=== PATIENT | male | born 1945 | race Caucasian/White ===

== ENCOUNTER 2018-06-22 10:51 | Observation (INO) | payer OTHER, MEDICARE ==
[2018-06-22] MEDS ORDERED: IPRATROPIUM-ALBUTEROL 3 ML NEB INHALATION STA (11:32)
--- NOTE | 2018-06-22 12:02 | XR ---
EXAMINATION TYPE: XR chest 2V DATE OF EXAM: 06/22/2018 COMPARISON: CXR October 19, 2014 HISTORY: Difficulty in breathing. TECHNIQUE: Frontal and lateral views of the chest are obtained. FINDINGS: There is some chronic parenchymal change without suspicious focal air space opacity, pleur al effusion, or pneumothorax seen. The cardiac silhouette size is within normal limits. The osseou s structures are intact. Cholecystectomy clips are now present. IMPRESSION: Chronic changes without acute pulmonary process.
--- NOTE | 2018-06-22 12:10 | ED ---
URI HPI - General Chief Complaint: Upper Respiratory Infection Stated Complaint: cough, congestion, SOB Time Seen by Provider: 06/22/18 11:19 Source: patient, RN notes reviewed Mode of arrival: ambulatory Limitations: no limitations - History of Present Illness Initial Comments: 73-year-old male presents emergency Department chief complaint cough congestion for 10 days. Patient states that he would see his PCP today and sent him here for further evaluation. Patient states he is a nonsmoker no prior lung disease. Patient states she has no current chest pain but did have some chest pain during any symptoms. Patient does state they feel short of breath and is productive cough this a large amount of phlegm. Patient reports no fever or chills. Patient states he has sinus congestion. Patient states the diarrhea just a cold and he is waiting for her to clear but has not at this time. - Related Data Home Medications Medication Instructions Recorded Confirmed Ranitidine HCl [Zantac] 150 mg PO PC-LUNCH 10/20/14 06/22/18 metFORMIN HCL 1,000 mg PO BID@1300,2100 10/20/14 06/22/18 Aspirin EC [Ecotrin Low Dose] 81 mg PO PC-LUNCH 06/22/18 06/22/18 Naproxen Sodium [Aleve] 220 mg PO BID PRN 06/22/18 06/22/18 Rosuvastatin Calcium [Crestor] 5 mg PO PC-LUNCH 06/22/18 06/22/18 Allergies Allergy/AdvReac Type Severity Reaction Status Date / Time No Known Allergies Allergy Verified 06/22/18 11:47 Review of Systems ROS Statement: Those systems with pertinent positive or pertinent negative responses have been documented in the HPI. ROS Other: All systems not noted in ROS Statement are negative. Past Medical History Past Medical History: Diabetes Mellitus, GERD/Reflux History of Any Multi-Drug Resistant Organisms: None Reported Past Surgical History: Cholecystectomy, Heart Catheterization With Stent, Hernia Repair Past Anesthesia/Blood Transfusion Reactions: No Reported Reaction Date of Last Stent Placement:: 2007 Past Psychological History: No Psychological Hx Reported Smoking Status: Former smoker Past Alcohol Use History: Occasional Past Drug Use History: None Reported General Exam General appearance: alert, in no apparent distress Head exam: Present: atraumatic, normocephalic, normal inspection Eye exam: Present: normal appearance, PERRL, EOMI. Absent: scleral icterus, conjunctival injection, periorbital swelling ENT exam: Present: mucous membranes moist, TM's normal bilaterally, normal external ear exam. Absent: normal oropharynx (Postnasal drainage) Neck exam: Present: normal inspection, full ROM. Absent: tenderness, meningismus, lymphadenopathy Respiratory exam: Present: wheezes. Absent: normal lung sounds bilaterally, respiratory distress, rales, rhonchi, stridor Cardiovascular Exam: Present: regular rate, normal rhythm, normal heart sounds. Absent: systolic murmur, diastolic murmur, rubs, gallop, clicks Neurological exam: Present: alert, oriented X3, CN II-XII intact Skin exam: Present: warm, dry, intact, normal color. Absent: rash Course Vital Signs 06/22/18 06/22/18 06/22/18 11:08 12:00 12:05 Temperature 98.6 F Pulse Rate 99 80 83 Respiratory 22 17 Rate Blood Pressure 167/93 127/79 O2 Sat by Pulse 96 98 Oximetry 06/22/18 06/22/18 12:30 13:00 Temperature Pulse Rate 87 84 Respiratory 15 20 Rate Blood Pressure 129/83 131/83 O2 Sat by Pulse 98 97 Oximetry Medical Decision Making - Medical Decision Making 73-year-old male presents emergency department for URI symptoms 1010 today, rib pain. Patient has noted to have elevated troponin may be related to renal function though he does complain of chest wall pain. Patient will be admitted for repeat troponin, heparin, antibiotics. - Lab Data Result diagrams: 06/22/18 11:35 06/22/18 11:35 Lab Results 06/22/18 06/22/18 06/22/18 Range/Units 11:35 11:35 11:35 WBC 14.1 H (3.8-10.6) k/uL RBC 4.57 (4.30-5.90) m/uL Hgb 13.6 (13.0-17.5) gm/dL Hct 41.0 (39.0-53.0) % MCV 89.7 (80.0-100.0) fL MCH 29.8 (25.0-35.0) pg MCHC 33.2 (31.0-37.0) g/dL RDW 12.6 (11.5-15.5) % Plt Count 232 (150-450) k/uL Neutrophils % 81 % Lymphocytes % 8 % Monocytes % 7 % Eosinophils % 2 % Basophils % 0 % Neutrophils # 11.5 H (1.3-7.7) k/uL Lymphocytes # 1.2 (1.0-4.8) k/uL Monocytes # 0.9 (0-1.0) k/uL Eosinophils # 0.3 (0-0.7) k/uL Basophils # 0.1 (0-0.2) k/uL PT (9.0-12.0) sec INR (<1.2) APTT (22.0-30.0) sec Sodium 140 (137-145) mmol/L Potassium 4.2 (3.5-5.1) mmol/L Chloride 100 (98-107) mmol/L Carbon Dioxide 25 (22-30) mmol/L Anion Gap 15 mmol/L BUN 22 H (9-20) mg/dL Creatinine 1.50 H (0.66-1.25) mg/dL Est GFR (CKD-EPI)AfAm 54 (>60 ml/min/1.73 sqM) Est GFR (CKD-EPI)NonAf 46 (>60 ml/min/1.73 sqM) Glucose 159 H (74-99) mg/dL Plasma Lactic Acid Mason (0.7-2.0) mmol/L Calcium 10.1 (8.4-10.2) mg/dL Magnesium 1.5 L (1.6-2.3) mg/dL Total Bilirubin 1.5 H (0.2-1.3) mg/dL AST 31 (17-59) U/L ALT 31 (21-72) U/L Alkaline Phosphatase 84 (38-126) U/L Troponin I (0.000-0.034) ng/mL NT-Pro-B Natriuret Pep 2100 pg/mL Total Protein 7.3 (6.3-8.2) g/dL Albumin 4.5 (3.5-5.0) g/dL 06/22/18 06/22/18 06/22/18 Range/Units 11:35 11:35 11:35 WBC (3.8-10.6) k/uL RBC (4.30-5.90) m/uL Hgb (13.0-17.5) gm/dL Hct (39.0-53.0) % MCV (80.0-100.0) fL MCH (25.0-35.0) pg MCHC (31.0-37.0) g/dL RDW (11.5-15.5) % Plt Count (150-450) k/uL Neutrophils % % Lymphocytes % % Monocytes % % Eosinophils % % Basophils % % Neutrophils # (1.3-7.7) k/uL Lymphocytes # (1.0-4.8) k/uL Monocytes # (0-1.0) k/uL Eosinophils # (0-0.7) k/uL Basophils # (0-0.2) k/uL PT 9.6 (9.0-12.0) sec INR 1.0 (<1.2) APTT 23.3 (22.0-30.0) sec Sodium (137-145) mmol/L Potassium (3.5-5.1) mmol/L Chloride (98-107) mmol/L Carbon Dioxide (22-30) mmol/L Anion Gap mmol/L BUN (9-20) mg/dL Creatinine (0.66-1.25) mg/dL Est GFR (CKD-EPI)AfAm (>60 ml/min/1.73 sqM) Est GFR (CKD-EPI)NonAf (>60 ml/min/1.73 sqM) Glucose (74-99) mg/dL Plasma Lactic Acid Mason 1.3 (0.7-2.0) mmol/L Calcium (8.4-10.2) mg/dL Magnesium (1.6-2.3) mg/dL Total Bilirubin (0.2-1.3) mg/dL AST (17-59) U/L ALT (21-72) U/L Alkaline Phosphatase (38-126) U/L Troponin I 0.090 H* (0.000-0.034) ng/mL NT-Pro-B Natriuret Pep pg/mL Total Protein (6.3-8.2) g/dL Albumin (3.5-5.0) g/dL Disposition Clinical Impression: Acute bronchitis with bronchospasm, Dyspnea, Elevated troponin, Chest pain Disposition: ADMITTED IP TO THIS HOSP Condition: Fair Referrals: [facility],Clinic [Primary Care Provider] - 1-2 days
[2018-06-22 12:14] LABS: Basophils # (A) 0.1 k/uL (0-0.2); Basophils % (A) 0 %; Eosinophils # (A) 0.3 k/uL (0-0.7); Eosinophils % (A) 2 %; HGB 13.6 gm/dL (13.0-17.5); Lymphocytes # (A) 1.2 k/uL (1.0-4.8); Lymphocytes % (A) 8 %; MCH 29.8 pg (25.0-35.0); MCHC 33.2 g/dL (31.0-37.0); MCV 89.7 fL (80.0-100.0); Monocytes # (A) 0.9 k/uL (0-1.0); Monocytes % (A) 7 %; Neutrophils # (A) 11.5 k/uL (1.3-7.7); Neutrophils % (A) 81 %; Platelet Count 232 k/uL (150-450); RBC 4.57 m/uL (4.30-5.90); RDW 12.6 % (11.5-15.5); WBC 14.1 k/uL (3.8-10.6)
[2018-06-22 12:24] LABS: Partial Thromboplastin Time 23.3 sec (22.0-30.0); Prothrombin Time 9.6 sec (9.0-12.0)
[2018-06-22 12:32] LABS: Albumin 4.5 g/dL (3.5-5.0); Calcium 10.1 mg/dL (8.4-10.2); Magnesium 1.5 mg/dL (1.6-2.3); Potassium 4.2 mmol/L (3.5-5.1); Total Bilirubin 1.5 mg/dL (0.2-1.3); Total Protein 7.3 g/dL (6.3-8.2)
[2018-06-22] MEDS ORDERED: NITROGLYCERIN SL TABS 0.4 MG TAB SUBLINGUAL PRN (13:33)
[2018-06-22] MEDS ORDERED: ASPIRIN 81 MG PO STA (13:33)
[2018-06-22] MEDS ORDERED: HEPARIN SODIUM,PORCINE 5,000 UNIT/ML 1 ML VIAL IV ONE (13:33)
[2018-06-22] MEDS ORDERED: AZITHROMYCIN 500 MG in SODIUM CHLORIDE 0.9% 250 ML IVPB STA (13:35)
[2018-06-22] MEDS ORDERED: HEPARIN SOD,PORK IN 0.45% NACL 25,000 UNIT in 0.45% NACL 1 500ML.BAG IV SCH (13:45)
[2018-06-22] MEDS: IPRATROPIUM-ALBUTEROL 3 ML NEB INHALATION SCH ×2 (15:32→20:00)
--- NOTE | 2018-06-22 17:29 | P.HPIM ---
History of Present Illness 73-year-old pleasant gentleman sent in from PCPs office with concerns of pneumonia. Patient was having URI-like symptoms with pharyngitis started about 14 days ago and now coughing greenish phlegm is complaining of chest pain while coughing. Patient creatinine is around 0.8 his creatinine here is 1.5 patient' s chest x-ray did not show any pneumonic process EKG did not show any acute ST- T wave changes although patient is found to have mildly elevated troponin of 0.09 because of which ER physician requested straight for monitoring hospitalization. Patient is also hypomagnesemic magnesium will be supplemented patient doesn't have any history of COPD used to smoke about 40 years ago. Patient denied any fever chills. Review of Systems REVIEW OF SYSTEMS: CONSTITUTIONAL: No fever, no malaise, no fatigue. HEENT: No recent visual problems or hearing problems. Denied any sore throat. CARDIOVASCULAR: No orthopnea, PND, no palpitations, no syncope. PULMONARY: No shortness of breath, no hemoptysis. GASTROINTESTINAL: No diarrhea, no nausea, no vomiting, no abdominal pain. Normoactive bowel sounds. NEUROLOGICAL: No headaches, no weakness, no numbness. HEMATOLOGICAL: Denies any bleeding or petechiae. GENITOURINARY: Denies any burning micturition, frequency, or urgency. MUSCULOSKELETAL/RHEUMATOLOGICAL: Denies any joint pain, swelling, or any muscle pain. ENDOCRINE: Denies any polyuria or polydipsia. The rest of the 14-point review of systems is negative. Past Medical History Past Medical History: Diabetes Mellitus, GERD/Reflux History of Any Multi-Drug Resistant Organisms: None Reported Past Surgical History: Cholecystectomy, Heart Catheterization With Stent, Hernia Repair Past Anesthesia/Blood Transfusion Reactions: No Reported Reaction Date of Last Stent Placement:: 2007 Past Psychological History: No Psychological Hx Reported Smoking Status: Former smoker Past Alcohol Use History: Occasional Past Drug Use History: None Reported Medications and Allergies Home Medications Medication Instructions Recorded Confirmed Type Ranitidine HCl [Zantac] 150 mg PO PC-LUNCH 10/20/14 06/22/18 History metFORMIN HCL 1,000 mg PO BID@1300,2100 10/20/14 06/22/18 History Aspirin EC [Ecotrin Low Dose] 81 mg PO PC-LUNCH 06/22/18 06/22/18 History Naproxen Sodium [Aleve] 220 mg PO BID PRN 06/22/18 06/22/18 History Rosuvastatin Calcium [Crestor] 5 mg PO PC-LUNCH 06/22/18 06/22/18 History Allergies Allergy/AdvReac Type Severity Reaction Status Date / Time No Known Allergies Allergy Verified 06/22/18 11:47 Physical Exam Vitals: Vital Signs Temp Pulse Resp BP Pulse Ox 06/22/18 15:40 68 06/22/18 15:33 67 06/22/18 14:30 78 20 125/78 98 06/22/18 13:00 84 20 131/83 97 06/22/18 12:30 87 15 129/83 98 06/22/18 12:05 83 06/22/18 12:00 80 17 127/79 98 06/22/18 11:08 98.6 F 99 22 167/93 96 Intake and Output 06/22/18 06/22/18 06/22/18 06:59 14:59 22:59 Other: Weight 68.039 kg PHYSICAL EXAMINATION: GENERAL: The patient is alert and oriented x3, not in any acute distress. Well developed, well nourished. HEENT: Pupils are round and equally reacting to light. EOMI. No scleral icterus. No conjunctival pallor. Normocephalic, atraumatic. No pharyngeal erythema. No thyromegaly. CARDIOVASCULAR: S1 and S2 present. No murmurs, rubs, or gallops. PULMONARY: Chest is clear to auscultation, no wheezing or crackles. ABDOMEN: Soft, nontender, nondistended, normoactive bowel sounds. No palpable organomegaly. MUSCULOSKELETAL: No joint swelling or deformity. EXTREMITIES: No cyanosis, clubbing, or pedal edema. NEUROLOGICAL: Gross neurological examination did not reveal any focal deficits. SKIN: No rashes. Results CBC & Chem 7: 06/22/18 11:35 06/22/18 11:35 Labs: Abnormal Lab Results - Last 24 Hours (Table) 06/22/18 06/22/18 06/22/18 Range/Units 11:35 11:35 11:35 WBC 14.1 H (3.8-10.6) k/uL Neutrophils # 11.5 H (1.3-7.7) k/uL BUN 22 H (9-20) mg/dL Creatinine 1.50 H (0.66-1.25) mg/dL Glucose 159 H (74-99) mg/dL Magnesium 1.5 L (1.6-2.3) mg/dL Total Bilirubin 1.5 H (0.2-1.3) mg/dL Troponin I 0.090 H* (0.000-0.034) ng/mL Assessment and Plan Plan: -Mild elevation of troponin: Will repeat 2 more sets of troponins and EKGs mild elevation of troponin is secondary to his acute renal failure patient was started on IV fluids and repeat basic metabolic profile again. Cardiology was consulted. -Chest pain musculoskeletal from coughing my suspicion is low that patient has cardiac chest pain -Acute renal failure prerenal azotemia patient will be started on IV fluids and recheck basic metabolic profile tomorrow -Acute bronchitis we'll obtain sputum cultures and patient will be started on doxycycline patient doesn't have any pneumonia at this time -Gastroesophageal reflux disease -Type 2 diabetes mellitus patient will be started on sliding scale insulin hold off oral hypoglycemic agents
[2018-06-22] MEDS: MAGNESIUM SULFATE-D5W PMX 1 GM in DEXTROSE/WATER 1 100ML.BAG IVPB SCH ×2 (18:37→19:45)
[2018-06-22 18:46] LABS: Creatine Kinase MB 2.2 ng/mL (0.0-2.4); Troponin I 0.106 ng/mL (0.000-0.034)
[2018-06-22] MEDS: SODIUM CHLORIDE 0.9% 1,000 ML IV SCH ×2 (20:42→22:30)
[2018-06-22] MEDS: DOXYCYCLINE 100 MG CAP PO SCH (21:58)
[2018-06-23] MEDS: IPRATROPIUM-ALBUTEROL 3 ML NEB INHALATION SCH ×4 (00:14→11:45)
[2018-06-23 00:58] LABS: Troponin I 0.096 ng/mL (0.000-0.034)
[2018-06-23 05:09] LABS: Calcium 8.5 mg/dL (8.4-10.2); Potassium 3.7 mmol/L (3.5-5.1)
[2018-06-23 05:36] LABS: HCT 30.7 % (39.0-53.0); MCH 30.8 pg (25.0-35.0); MCHC 34.7 g/dL (31.0-37.0); MCV 88.9 fL (80.0-100.0); Mean Platelet Volume 7.2; Platelet Count 167 k/uL (150-450); RBC 3.45 m/uL (4.30-5.90); RDW 12.7 % (11.5-15.5); WBC 7.5 k/uL (3.8-10.6)
[2018-06-23 05:40] LABS: HGB 10.6 gm/dL (13.0-17.5)
[2018-06-23 06:04] LABS: Glucose,Whole Blood 191 mg/dL (75-99)
[2018-06-23 07:59] VITALS: RESP 16
[2018-06-23] MEDS: DOXYCYCLINE 100 MG CAP PO SCH (08:02)
--- NOTE | 2018-06-23 08:53 | P.CRDCN ---
History of Present Illness Consult date: 06/23/18 History of present illness: This is a 73-year-old gentleman with history of the ischemic heart disease and stent placement done about 20 years ago and being followed in the [facility]. Apparently for the last few days patient has been having cough and shortness of breath. He was referred to the emergency room by [facility] for further evaluation. He was also complaining of chest pain which radiated related to his coughing and appears to be muscular skeletal. In the emergency room blood test showed elevation of the troponins. Patient is admitted to rule out any acute coronary syndrome. Subsequent to troponin values were also elevated but appeared to be not consistent with acute coronary syndrome. Patient is still coughing. He clearly claims that chest pain is different than the discomfort he had with his heart attacks. EKGs did not reveal any acute changes of ischemia. I'm going to get an echocardiogram done. If echo doesn't show any significant wall motion abnormalities, no further cardiac evaluation at this time. However, patient may be constricted for a stress test as an outpatient once his pulmonary status improves. Review of Systems As per the chart Past Medical History Past Medical History: Coronary Artery Disease (CAD), Diabetes Mellitus, GERD/ Reflux, Hyperlipidemia, Myocardial Infarction (MD) Last Myocardial Infarction Date:: 2007 History of Any Multi-Drug Resistant Organisms: None Reported Past Surgical History: Cholecystectomy, Heart Catheterization With Stent, Hernia Repair Past Anesthesia/Blood Transfusion Reactions: No Reported Reaction Date of Last Stent Placement:: 2007 Smoking Status: Former smoker - Past Family History Mother Family Medical History: No Reported History Additional Family Medical History / Comment(s): " from old age" Father Family Medical History: CVA/TIA Additional Family Medical History / Comment(s): father from stroke when pt was 7 years old Medications and Allergies Home Medications Medication Instructions Recorded Confirmed Type Ranitidine HCl [Zantac] 150 mg PO PC-LUNCH 10/20/14 06/22/18 History metFORMIN HCL 1,000 mg PO BID@1300,2100 10/20/14 06/22/18 History Aspirin EC [Ecotrin Low Dose] 81 mg PO PC-LUNCH 06/22/18 06/22/18 History Naproxen Sodium [Aleve] 220 mg PO BID PRN 06/22/18 06/22/18 History Rosuvastatin Calcium [Crestor] 5 mg PO PC-LUNCH 06/22/18 06/22/18 History Allergies Allergy/AdvReac Type Severity Reaction Status Date / Time No Known Allergies Allergy Verified 06/22/18 11:47 Physical Exam Vitals: Vital Signs Temp Pulse Pulse Resp BP BP Pulse Ox 06/23/18 07:58 98.4 F 69 16 121/62 98 06/23/18 04:00 97.5 F L 75 18 121/68 97 06/23/18 00:25 72 06/23/18 00:14 68 06/22/18 23:45 83 18 06/22/18 23:43 97.6 F 83 18 127/72 97 06/22/18 20:25 98.9 F 72 18 130/71 97 06/22/18 20:15 72 06/22/18 20:00 98.0 F 72 93 18 120/71 98 06/22/18 18:41 98.8 F 79 20 129/72 99 06/22/18 15:40 68 06/22/18 15:33 67 06/22/18 14:30 78 20 125/78 98 06/22/18 13:00 84 20 131/83 97 06/22/18 12:30 87 15 129/83 98 06/22/18 12:05 83 06/22/18 12:00 80 17 127/79 98 06/22/18 11:08 98.6 F 99 22 167/93 96 Intake and Output 06/22/18 06/23/18 06/23/18 22:59 06:59 14:59 Intake Total 115.056 960.899 Output Total 700 Balance 115.056 260.899 Intake: IV 800 0.9 800 Intake, IV Titration 115.056 160.899 Amount Heparin Sod,Pork in 0.45% 115.056 160.899 NaCl 25,000 unit In 0.45 % NaCl 1 500ml.bag @ 12 UNITS/KG/HR 16.32 mls/hr IV .Q24H [facility] Rx#: [id number] Output: Urine 700 Other: Voiding Method Toilet Toilet # Voids 1 Weight 68 kg GENERAL EXAM: Patient is alert and oriented and doesn't appear to be in any acute distress HEENT: Normocephalic. Normal reaction of pupils, equal size, normal range of extraocular motion. No erythema or exudates in the throat. NECK: No masses, no nuchal rigidity. CHEST: No chest wall deformity. LUNGS: Equal air entry with no crackles or wheeze. HEART: S1 and S2 normal with no audible mumurs or gallops. Regular rhythm, ABDOMEN: No hepatosplenomegaly, normal bowel sounds, no guarding or rigidity. SKIN: No rashes CENTRAL NERVOUS SYSTEM: No focal deficits. EXTREMITIES: No cyanosis, clubbing or edema. Results 06/23/18 04:10 06/23/18 04:10 Cardiac Enzymes 06/22/18 06/22/18 06/22/18 Range/Units 11:35 11:35 17:44 AST 31 (17-59) U/L CK-MB (CK-2) 2.2 (0.0-2.4) ng/mL Troponin I 0.090 H* 0.106 H* (0.000-0.034) ng/mL 06/22/18 Range/Units 23:25 AST (17-59) U/L CK-MB (CK-2) 2.0 (0.0-2.4) ng/mL Troponin I 0.096 H* (0.000-0.034) ng/mL Coagulation 06/22/18 06/22/18 06/23/18 Range/Units 11:35 20:45 04:10 PT 9.6 (9.0-12.0) sec APTT 23.3 35.3 H 44.4 H (22.0-30.0) sec Lipids 06/23/18 Range/Units 04:10 Triglycerides 102 (<150) mg/dL Cholesterol 114 (<200) mg/dL HDL Cholesterol 35 L (40-60) mg/dL CBC 06/22/18 06/23/18 Range/Units 11:35 04:10 WBC 14.1 H 7.5 (3.8-10.6) k/uL RBC 4.57 3.45 L (4.30-5.90) m/uL Hgb 13.6 10.6 L D (13.0-17.5) gm/dL Hct 41.0 30.7 L (39.0-53.0) % Plt Count 232 167 (150-450) k/uL Comprehensive Metabolic Panel 06/22/18 06/23/18 Range/Units 11:35 04:10 Sodium 140 137 (137-145) mmol/L Potassium 4.2 3.7 (3.5-5.1) mmol/L Chloride 100 104 (98-107) mmol/L Carbon Dioxide 25 26 (22-30) mmol/L BUN 22 H 22 H (9-20) mg/dL Creatinine 1.50 H 1.42 H (0.66-1.25) mg/dL Glucose 159 H 189 H (74-99) mg/dL Calcium 10.1 8.5 (8.4-10.2) mg/dL AST 31 (17-59) U/L ALT 31 (21-72) U/L Alkaline Phosphatase 84 (38-126) U/L Total Protein 7.3 (6.3-8.2) g/dL Albumin 4.5 (3.5-5.0) g/dL Current Medications Generic Name Dose Route Start Last Admin Trade Name Freq PRN Reason Stop Dose Admin Albuterol/Ipratropium 3 ml 06/22/18 16:00 06/23/18 08:04 Duoneb 0.5 Mg-3 Mg/3 Ml Soln INHALATION Not Given Q4HR [facility] Aspirin 81 mg 06/23/18 13:30 Aspirin PO PC-LUNCH [facility] Atorvastatin Calcium 10 mg 06/23/18 13:30 Lipitor PO PC-LUNCH [facility] Doxycycline Monohydrate 100 mg 06/22/18 21:00 06/23/18 08:02 Vibramycin PO 100 mg BID [facility] Administration Famotidine 20 mg 06/23/18 13:30 Pepcid PO PC-LUNCH [facility] Heparin Sodium/Sodium Chloride 500 mls @ 16.32 mls/hr 06/22/18 13:45 05:49 25,000 unit/ Sodium Chloride IV 17 units/kg/hr .Q24H [facility] 23.13 mls/hr Titration Protocol 12 UNITS/KG/HR Sodium Chloride 1,000 mls @ 100 mls/hr 06/22/18 17:30 06/22/18 22:30 Saline 0.9% IV 100 mls/hr .Q10H [facility] Administration Nitroglycerin 0.4 mg 06/22/18 13:33 Nitrostat SUBLINGUAL Q5M PRN Chest Pain Intake and Output 06/22/18 06/23/18 06/23/18 22:59 06:59 14:59 Intake Total 115.056 960.899 Output Total 700 Balance 115.056 260.899 Intake: IV 800 0.9 800 Intake, IV Titration 115.056 160.899 Amount Heparin Sod,Pork in 0.45% 115.056 160.899 NaCl 25,000 unit In 0.45 % NaCl 1 500ml.bag @ 12 UNITS/KG/HR 16.32 mls/hr IV .Q24H [facility] Rx#: [id number] Output: Urine 700 Other: Voiding Method Toilet Toilet # Voids 1 Weight 68 kg 06/23/18 04:10 06/23/18 04:10 EKG Interpretations (text) Sinus rhythm, long QT interval without any acute ST-T abnormalities Assessment and Plan (1) Acute bronchitis with bronchospasm Current Visit: Yes Status: Acute Code(s): J20.9 - ACUTE BRONCHITIS, UNSPECIFIED SNOMED Code(s): 22563739 (2) Chest pain Current Visit: Yes Status: Acute Code(s): R07.9 - CHEST PAIN, UNSPECIFIED SNOMED Code(s): 33384637 (3) Dyspnea Current Visit: Yes Status: Acute Code(s): R06.00 - DYSPNEA, UNSPECIFIED SNOMED Code(s): 927823283 (4) Elevated troponin Current Visit: Yes Status: Acute Code(s): R74.8 - ABNORMAL LEVELS OF OTHER SERUM ENZYMES SNOMED Code(s): 671054395 (5) Coronary artery disease Current Visit: No Status: Acute Code(s): I25.10 - ATHSCL HEART DISEASE OF [place] CORONARY ARTERY W/O ANG PCTRS SNOMED Code(s): 57184296 Plan: We'll get an echocardiogram. If there are no segmental wall motion defects, no further cardiac evaluation at this time. However, recommend that patient have outpatient stress test once his pulmonary status is improved
[2018-06-23] MEDS ORDERED: ASPIRIN 325 MG TAB PO SCH (09:00)
--- NOTE | 2018-06-23 10:21 | P.DS ---
Providers Date of admission: 06/22/18 14:57 Attending physician: Janina Marshall Consults: 06/22/18 13:33 Consult Physician Urgent Consulting Provider: Robin Weiner Consult Reason/Comments: chest pain Do you want consulting provider notified?: Yes Primary care physician: [facility] Course: 89-year-old gentleman was admitted because of elevated troponin which is minimal elevation patient has noncardiac musculoskeletal chest pain from coughing. Patient does have acute bronchitis for which patient will be discharged on doxycycline and patient does have some sinusitis as well if his symptoms doesn't improve with doxycycline, antibiotic and be switched to Augmentin as of now his symptoms are much better today. Patient was evaluated cardiology and his elevated troponin is secondary to kidney failure. 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 As of now his blood pressure is stable. Patient is not a candidate for metformin because the port renal function has diabetic medication will be switched to Januvia, if that is not covered by the insurance probably can use glipizide are newer diabetic medications. Patient is undergoing echocardiogram if it doesn't show any wall motion abnormalities or any other significant abnormalities patient will be discharged today PHYSICAL EXAMINATION: GENERAL: The patient is alert and oriented x3, not in any acute distress. Well developed, well nourished. HEENT: Pupils are round and equally reacting to light. EOMI. No scleral icterus. No conjunctival pallor. Normocephalic, atraumatic. No pharyngeal erythema. No thyromegaly. CARDIOVASCULAR: S1 and S2 present. No murmurs, rubs, or gallops. PULMONARY: Chest is clear to auscultation, no wheezing or crackles. ABDOMEN: Soft, nontender, nondistended, normoactive bowel sounds. No palpable organomegaly. MUSCULOSKELETAL: No joint swelling or deformity. EXTREMITIES: No cyanosis, clubbing, or pedal edema. NEUROLOGICAL: Gross neurological examination did not reveal any focal deficits. SKIN: No rashes. Assessment and Plan Plan: -Mild elevation of troponin: mild elevation of troponin is secondary to his acute renal failure -Chest pain musculoskeletal from coughing my suspicion is low that patient has cardiac chest pain -Acute renal failure prerenal azotemia along with chronic kidney disease as mentioned above -Acute bronchitis -Gastroesophageal reflux disease -Type 2 diabetes mellitus Patient Condition at Discharge: Fair Plan - Discharge Summary Discharge Rx Participant: Yes New Discharge Prescriptions: New Doxycycline Monohydrate [Monodox] 100 mg PO BID 5 Days #10 cap sitaGLIPtin PHOSPHATE [Januvia] 50 mg PO DAILY #30 tab Discontinued metFORMIN HCL 1,000 mg PO BID@1300,2100 Naproxen Sodium [Aleve] 220 mg PO BID PRN PRN Reason: Pain No Action Ranitidine HCl [Zantac] 150 mg PO PC-LUNCH Aspirin EC [Ecotrin Low Dose] 81 mg PO PC-LUNCH Rosuvastatin Calcium [Crestor] 5 mg PO PC-LUNCH Discharge Medication List Ranitidine HCl [Zantac] 150 mg PO PC-LUNCH 10/20/14 [History] Aspirin EC [Ecotrin Low Dose] 81 mg PO PC-LUNCH 06/22/18 [History] Rosuvastatin Calcium [Crestor] 5 mg PO PC-LUNCH 06/22/18 [History] Doxycycline Monohydrate [Monodox] 100 mg PO BID 5 Days #10 cap 06/23/18 [Rx] sitaGLIPtin PHOSPHATE [Januvia] 50 mg PO DAILY #30 tab 06/23/18 [Rx] Follow up Appointment(s)/Referral(s): Jacki Orozco MD [STAFF PHYSICIAN] - 1 Week [facility],Clinic [Primary Care Provider] - 3 Days Patient Instructions/Handouts: Acute Bronchitis (GEN), Bronchospasm (DC) Discharge Disposition: HOME SELF-CARE
[2018-06-23 11:21] VITALS: BP 113/59; PULSE 70; TEMP 98.6
[2018-06-23 11:24] LABS: Glucose,Whole Blood 211 mg/dL (75-99)
[2018-06-23] MEDS ORDERED: INSULIN ASPART 100 UNIT/ML 1 ML 10 ML VIAL SQ SCH (12:30)
--- NOTE | 2018-06-23 12:30 | ECHOF ---
Referral Reason:check heart LV function MEASUREMENTS -------- HEIGHT: 170.2 cm WEIGHT: 67.6 kg BP: RVIDd: 2.4 cm (< 3.3) IVSd: 1.2 cm (0.6 - 1.1) LVIDd: 3.8 cm (3.9 - 5.3) LVPWd: 1.4 cm (0.6 - 1.1) IVSs: 2.0 cm LVIDs: 2.4 cm LVPWs: 2.1 cm LAESV Index (A-L): 27.26 ml/m Ao Diam: 3.5 cm (2.0 - 3.7) AV Cusp: 2.3 cm (1.5 - 2.6) LA Diam: 2.9 cm (2.7 - 3.8) MV EXCURSION: 13.189 mm (> 18.000) MV EF SLOPE: 77 mm/s (70 - 150) EPSS: 0.7 cm MV E Feliz: 0.83 m/s MV DecT: 145 ms MV A Feliz: 0.89 m/s MV E/A Ratio: 0.93 RAP: 5.00 mmHg RVSP: 10.17 mmHg FINDINGS -------- Sinus rhythm. This was a technically good study. The left ventricular size is normal. There is mild concentric left ventricular hypertrophy. Overa ll left ventricular systolic function is mildly impaired with, an EF between 45 - 50 %. Basal poste rior LV wall motion is hypokinetic. Basal inferior LV wall motion is hypokinetic. Mid inferior LV wall motion is hypokinetic. The right ventricle is normal in size and function. The left atrium is normal in size. The right atrium is normal in size. The aortic valve is trileaflet and appears structurally normal. The mitral valve leaflets are mildly thickened. Mild mitral regurgitation is present. Mild tricuspid regurgitation present. There is no evidence of pulmonary hypertension. The right v entricular systolic pressure, as measured by Doppler, is 10.17mmHg. There is no pulmonic regurgitation present. The aortic root size is normal. Normal inferior vena cava with normal inspiratory collapse consistent with estimated right atrial pre ssure of 5 mmHg. There is no pericardial effusion. CONCLUSIONS -------- 1. Sinus rhythm. 2. This was a technically good study. 3. The left ventricular size is normal. 4. There is mild concentric left ventricular hypertrophy. 5. Overall left ventricular systolic function is mildly impaired with, an EF between 45 - 50 %. 6. Basal posterior LV wall motion is hypokinetic. 7. Basal inferior LV wall motion is hypokinetic. 8. Mid inferior LV wall motion is hypokinetic. 9. The left atrium is normal in size. 10. The aortic valve is trileaflet and appears structurally normal. 11. The mitral valve leaflets are mildly thickened. 12. Mild mitral regurgitation is present. 13. Mild tricuspid regurgitation present. 14. There is no evidence of pulmonary hypertension. 15. There is no pulmonic regurgitation present. 16. The aortic root size is normal. 17. Normal inferior vena cava with normal inspiratory collapse consistent with estimated right atrial pressure of 5 mmHg. 18. There is no pericardial effusion. MANAGER TRAFFIC: Marti Marmolejo RDCS
[2018-06-23] MEDS ORDERED: ASPIRIN 81 MG PO SCH (13:30)
[2018-06-23] MEDS ORDERED: ATORVASTATIN 10 MG TAB PO SCH (13:30)
[2018-06-23] MEDS ORDERED: FAMOTIDINE 20 MG TAB PO SCH (13:30)
[2018-06-23 22:30] LABS: Hemoglobin A1C 6.6 % (4.0-6.0)
== END 2018-06-23 14:42 | disposition home or self-care (01) ==
LOC: EC 10:51 → 3SCARD 14:57
PROVIDERS: ADMIT Internal Medicine; ATTEND Internal Medicine
DX: N17.9 Acute kidney failure, unspecified (principal); J20.9 Acute bronchitis, unspecified; R07.9 Chest pain, unspecified; J32.9 Chronic sinusitis, unspecified; E83.42 Hypomagnesemia; R19.7 Diarrhea, unspecified; E11.9 Type 2 diabetes mellitus without complications; Z95.5 Presence of coronary angioplasty implant and graft; Z90.49 Acquired absence of other specified parts of digestive tract; Z87.891 Personal history of nicotine dependence; K21.9 Gastro-esophageal reflux disease without esophagitis; I25.2 Old myocardial infarction; I25.10 Atherosclerotic heart disease of native coronary artery without angina pectoris; E78.5 Hyperlipidemia, unspecified; Z82.3 Family history of stroke; Z79.84 Long term (current) use of oral hypoglycemic drugs; Z79.82 Long term (current) use of aspirin; Z79.899 Other long term (current) drug therapy
CPT/HCPCS: 99285 ×2; 96365 ×2; 96366 ×3; 96367 ×2; 96376; 36415; 94640 ×3; 93005; 93306; 83880; 80061; 80053; 80048; 82550; 82553; 83605; 83735 ×2; 84484; 85025; 85027; 85610; 85730 ×2; 83036; 71046; G0378 ×2; J1644 ×2; J0456; J0696; J3475

== ENCOUNTER 2021-06-27 07:09 | Emergency (ER) | payer OTHER, MEDICARE ==
[2021-06-27 07:19] VITALS: BP 162/85; PULSE 95; RESP 22; TEMP 98.8
[2021-06-27 08:24] LABS: Basophils % (A) 0 %; Eosinophils # (A) 0.2 k/uL (0-0.7); Eosinophils % (A) 3 %; HCT 40.9 % (39.0-53.0); Lymphocytes # (A) 0.7 k/uL (1.0-4.8); Lymphocytes % (A) 9 %; MCH 30.8 pg (25.0-35.0); MCHC 34.3 g/dL (31.0-37.0); MCV 89.6 fL (80.0-100.0); Mean Platelet Volume 7.7; Monocytes # (A) 0.6 k/uL (0-1.0); Monocytes % (A) 7 %; Neutrophils # (A) 5.9 k/uL (1.3-7.7); Neutrophils % (A) 79 %; Platelet Count 140 k/uL (150-450); RBC 4.57 m/uL (4.30-5.90); RDW 12.8 % (11.5-15.5); WBC 7.4 k/uL (3.8-10.6)
--- NOTE | 2021-06-27 08:24 | XR ---
EXAMINATION TYPE: XR chest 1V portable DATE OF EXAM: 06/27/2021 COMPARISON: 06/22/2018 HISTORY: Cough TECHNIQUE: Single frontal view of the chest is obtained. FINDINGS: There is no focal air space opacity, pleural effusion, or pneumothorax seen. The cardiac silhouette size is within normal limits. The osseous structures are intact. IMPRESSION: No acute process.
[2021-06-27 08:37] LABS: INR 0.9 (<1.2); Partial Thromboplastin Time 22.8 sec (22.0-30.0); Prothrombin Time 10.1 sec (9.0-12.0)
[2021-06-27 08:41] LABS: Albumin 4.2 g/dL (3.5-5.0); Calcium 9.2 mg/dL (8.4-10.2); Magnesium 1.5 mg/dL (1.6-2.3); Potassium 3.8 mmol/L (3.5-5.1); Total Bilirubin 1.2 mg/dL (0.2-1.3); Total Protein 6.8 g/dL (6.3-8.2)
[2021-06-27] MEDS ORDERED: MAGNESIUM OXIDE 400 MG TAB PO STA (09:42)
[2021-06-27] MEDS ORDERED: ACETAMINOPHEN TAB 500 MG TAB PO STA (09:42)
--- NOTE | 2021-06-27 09:47 | ED ---
General Adult HPI - General Chief complaint: Upper Respiratory Infection Stated complaint: SOB Time Seen by Provider: 06/27/21 07:30 Source: patient, RN notes reviewed, old records reviewed Mode of arrival: ambulatory Limitations: no limitations - History of Present Illness Initial comments: This is a 76-year-old male presents emergency Department complaining of a cough since Tuesday. Patient states she's not coughing up any sputum but at night he can't stop coughing. Patient states he is not short of breath is not having any chest pain. Patient states he has not had a scope and vaccine. Patient denies any fever or chills that he knows of. Patient denies any lightheadedness or dizziness. Patient denies any palpitations. Patient denies any abdominal pain patient denies nausea vomiting diarrhea. - Related Data Home Medications Medication Instructions Recorded Confirmed Ranitidine HCl [Zantac] 150 mg PO PC-LUNCH 10/20/14 06/22/18 Aspirin EC [Ecotrin Low Dose] 81 mg PO PC-LUNCH 06/22/18 06/22/18 Rosuvastatin Calcium [Crestor] 5 mg PO PC-LUNCH 06/22/18 06/22/18 Previous Rx's Medication Instructions Recorded Doxycycline Monohydrate [Monodox] 100 mg PO BID 5 Days #10 cap 06/23/18 sitaGLIPtin [Januvia] 100 mg PO DAILY #30 tab 06/23/18 Albuterol Inhaler [Ventolin Hfa 2 puff INHALATION RT-QID #18 gm 06/27/21 Inhaler] Azithromycin [Zithromax Tri-Hong] 500 mg PO DAILY #3 tab 06/27/21 predniSONE [Deltasone] 40 mg PO DAILY #8 tab 06/27/21 Allergies Allergy/AdvReac Type Severity Reaction Status Date / Time No Known Allergies Allergy Verified 06/27/21 07:18 Review of Systems ROS Statement: Those systems with pertinent positive or pertinent negative responses have been documented in the HPI. ROS Other: All systems not noted in ROS Statement are negative. Past Medical History Past Medical History: Coronary Artery Disease (CAD), Diabetes Mellitus, GERD/Reflux, Hyperlipidemia, Myocardial Infarction ([place]) Last Myocardial Infarction Date:: 2007 History of Any Multi-Drug Resistant Organisms: None Reported Past Surgical History: Cholecystectomy, Heart Catheterization With Stent, Hernia Repair Past Anesthesia/Blood Transfusion Reactions: No Reported Reaction Date of Last Stent Placement:: 2007 Past Psychological History: No Psychological Hx Reported Smoking Status: Former smoker Past Alcohol Use History: Occasional Past Drug Use History: None Reported - Past Family History Mother Family Medical History: No Reported History Additional Family Medical History / Comment(s): " from old age" Father Family Medical History: CVA/TIA Additional Family Medical History / Comment(s): father from stroke when pt was 7 years old General Exam - General Exam Comments Initial Comments: GENERAL: Patient is well-developed and well-nourished. Patient is nontoxic and well- hydrated and is in mild distress. ENT: Neck is soft and supple. No significant lymphadenopathy is noted. Oropharynx is clear. Moist mucous membranes. Neck has full range of motion without noam citing any pain. EYES: The sclera were anicteric and conjunctiva were pink and moist. Extraocular movements were intact and pupils were equal round and reactive to light. Eyelids were unremarkable. PULMONARY: Patient has occasional expiratory wheeze CARDIOVASCULAR: There is a regular rate and rhythm without any murmurs gallops or rubs. ABDOMEN: Soft and nontender with normal bowel sounds. SKIN: Skin is clear with no lesions or rashes and otherwise unremarkable. NEUROLOGIC: Patient is alert and oriented x3. Cranial nerves II through XII are grossly intact. Motor and sensory are also intact. Normal speech, volume and content. Symmetrical smile. MUSCULOSKELETAL: Normal extremities with adequate strength and full range of motion. LYMPHATICS: No significant lymphadenopathy is noted PSYCHIATRIC: Normal psychiatric evaluation. Limitations: no limitations Course Vital Signs 06/27/21 07:13 Temperature 98.8 F Pulse Rate 95 Respiratory 22 Rate Blood Pressure 162/85 O2 Sat by Pulse 99 Oximetry Medical Decision Making - Medical Decision Making EKG shows sinus rhythm with occasional PVC at 81 bpm DE interval is 160 QRS is 102 QT interval 362 QTC is 420. Patient's EKG shows no ST segment elevation or depression. Patient was hypomagnesemic I gave him some magnesium in the emergency department. Patient had a 99.9 oral temp when I took it I gave him Tylenol. - Lab Data Result diagrams: 06/27/21 08:04 06/27/21 08:04 Lab Results 06/27/21 06/27/21 06/27/21 Range/Units 07:19 08:04 08:04 WBC 7.4 (3.8-10.6) k/uL RBC 4.57 (4.30-5.90) m/uL Hgb 14.0 (13.0-17.5) gm/dL Hct 40.9 (39.0-53.0) % MCV 89.6 (80.0-100.0) fL MCH 30.8 (25.0-35.0) pg MCHC 34.3 (31.0-37.0) g/dL RDW 12.8 (11.5-15.5) % Plt Count 140 L (150-450) k/uL MPV 7.7 Neutrophils % 79 % Lymphocytes % 9 % Monocytes % 7 % Eosinophils % 3 % Basophils % 0 % Neutrophils # 5.9 (1.3-7.7) k/uL Lymphocytes # 0.7 L (1.0-4.8) k/uL Monocytes # 0.6 (0-1.0) k/uL Eosinophils # 0.2 (0-0.7) k/uL Basophils # 0.0 (0-0.2) k/uL PT 10.1 (9.0-12.0) sec INR 0.9 (<1.2) APTT 22.8 (22.0-30.0) sec D-Dimer 0.42 (<0.60) mg/L FEU Sodium (137-145) mmol/L Potassium (3.5-5.1) mmol/L Chloride (98-107) mmol/L Carbon Dioxide (22-30) mmol/L Anion Gap mmol/L BUN (9-20) mg/dL Creatinine (0.66-1.25) mg/dL Est GFR (CKD-EPI)AfAm (>60 ml/min/1.73 sqM) Est GFR (CKD-EPI)NonAf (>60 ml/min/1.73 sqM) Glucose (74-99) mg/dL Plasma Lactic Acid Mason (0.7-2.0) mmol/L Calcium (8.4-10.2) mg/dL Magnesium (1.6-2.3) mg/dL Total Bilirubin (0.2-1.3) mg/dL AST (17-59) U/L ALT (4-49) U/L Alkaline Phosphatase (38-126) U/L Troponin I (0.000-0.034) ng/mL NT-Pro-B Natriuret Pep pg/mL Total Protein (6.3-8.2) g/dL Albumin (3.5-5.0) g/dL Coronavirus (PCR) Not Detected (Not Detectd) 06/27/21 06/27/21 06/27/21 Range/Units 08:04 08:04 08:04 WBC (3.8-10.6) k/uL RBC (4.30-5.90) m/uL Hgb (13.0-17.5) gm/dL Hct (39.0-53.0) % MCV (80.0-100.0) fL MCH (25.0-35.0) pg MCHC (31.0-37.0) g/dL RDW (11.5-15.5) % Plt Count (150-450) k/uL MPV Neutrophils % % Lymphocytes % % Monocytes % % Eosinophils % % Basophils % % Neutrophils # (1.3-7.7) k/uL Lymphocytes # (1.0-4.8) k/uL Monocytes # (0-1.0) k/uL Eosinophils # (0-0.7) k/uL Basophils # (0-0.2) k/uL PT (9.0-12.0) sec INR (<1.2) APTT (22.0-30.0) sec D-Dimer (<0.60) mg/L FEU Sodium 137 (137-145) mmol/L Potassium 3.8 (3.5-5.1) mmol/L Chloride 103 (98-107) mmol/L Carbon Dioxide 23 (22-30) mmol/L Anion Gap 11 mmol/L BUN 23 H (9-20) mg/dL Creatinine 1.52 H (0.66-1.25) mg/dL Est GFR (CKD-EPI)AfAm 52 (>60 ml/min/1.73 sqM) Est GFR (CKD-EPI)NonAf 45 (>60 ml/min/1.73 sqM) Glucose 233 H (74-99) mg/dL Plasma Lactic Acid Mason 1.0 (0.7-2.0) mmol/L Calcium 9.2 (8.4-10.2) mg/dL Magnesium 1.5 L (1.6-2.3) mg/dL Total Bilirubin 1.2 (0.2-1.3) mg/dL AST 32 (17-59) U/L ALT 30 (4-49) U/L Alkaline Phosphatase 60 (38-126) U/L Troponin I <0.012 (0.000-0.034) ng/mL NT-Pro-B Natriuret Pep pg/mL Total Protein 6.8 (6.3-8.2) g/dL Albumin 4.2 (3.5-5.0) g/dL Coronavirus (PCR) (Not Detectd) 06/27/21 Range/Units 08:04 WBC (3.8-10.6) k/uL RBC (4.30-5.90) m/uL Hgb (13.0-17.5) gm/dL Hct (39.0-53.0) % MCV (80.0-100.0) fL MCH (25.0-35.0) pg MCHC (31.0-37.0) g/dL RDW (11.5-15.5) % Plt Count (150-450) k/uL MPV Neutrophils % % Lymphocytes % % Monocytes % % Eosinophils % % Basophils % % Neutrophils # (1.3-7.7) k/uL Lymphocytes # (1.0-4.8) k/uL Monocytes # (0-1.0) k/uL Eosinophils # (0-0.7) k/uL Basophils # (0-0.2) k/uL PT (9.0-12.0) sec INR (<1.2) APTT (22.0-30.0) sec D-Dimer (<0.60) mg/L FEU Sodium (137-145) mmol/L Potassium (3.5-5.1) mmol/L Chloride (98-107) mmol/L Carbon Dioxide (22-30) mmol/L Anion Gap mmol/L BUN (9-20) mg/dL Creatinine (0.66-1.25) mg/dL Est GFR (CKD-EPI)AfAm (>60 ml/min/1.73 sqM) Est GFR (CKD-EPI)NonAf (>60 ml/min/1.73 sqM) Glucose (74-99) mg/dL Plasma Lactic Acid Mason (0.7-2.0) mmol/L Calcium (8.4-10.2) mg/dL Magnesium (1.6-2.3) mg/dL Total Bilirubin (0.2-1.3) mg/dL AST (17-59) U/L ALT (4-49) U/L Alkaline Phosphatase (38-126) U/L Troponin I (0.000-0.034) ng/mL NT-Pro-B Natriuret Pep 463 pg/mL Total Protein (6.3-8.2) g/dL Albumin (3.5-5.0) g/dL Coronavirus (PCR) (Not Detectd) Disposition Clinical Impression: Bronchitis Disposition: HOME SELF-CARE Instructions (If sedation given, give patient instructions): Acute Bronchitis (ED) Prescriptions: predniSONE [Deltasone] 40 mg PO DAILY #8 tab Albuterol Inhaler [Ventolin Hfa Inhaler] 2 puff INHALATION RT-QID #18 gm Azithromycin [Zithromax Tri-Hong] 500 mg PO DAILY #3 tab Is patient prescribed a controlled substance at d/c from ED?: No Referrals: [facility],Clinic [Primary Care Provider] - 1-2 days Time of Disposition: 09:46
== END 2021-06-27 10:03 | disposition home or self-care (01) ==
LOC: EC 07:09
DX: J40 Bronchitis, not specified as acute or chronic (principal); Z20.822 Contact with and (suspected) exposure to COVID-19; E11.9 Type 2 diabetes mellitus without complications; I25.2 Old myocardial infarction; I25.10 Atherosclerotic heart disease of native coronary artery without angina pectoris; E78.5 Hyperlipidemia, unspecified; K21.9 Gastro-esophageal reflux disease without esophagitis; Z79.82 Long term (current) use of aspirin; Z79.51 Long term (current) use of inhaled steroids; Z79.52 Long term (current) use of systemic steroids; Z79.84 Long term (current) use of oral hypoglycemic drugs; Z79.899 Other long term (current) drug therapy; Z87.891 Personal history of nicotine dependence
CPT/HCPCS: 36415; 71045; 80053; 83605; 83735; 83880; 84484; 85025; 85379; 85610; 85730; 87635; 93005; 99284

== ENCOUNTER 2021-08-09 07:59 | Inpatient (IN) | payer OTHER, MEDICARE ==
[2021-08-09] MEDS ORDERED: SODIUM CHLORIDE 0.9% 1,000 ML IV STA ×2 (08:06→09:32)
[2021-08-09] MEDS ORDERED: ACETAMINOPHEN TAB 500 MG TAB PO STA (08:08)
[2021-08-09] MEDS ORDERED: methylPREDNISolone SOD SUCCI 125 MG/2 ML VIAL IV STA (08:15)
[2021-08-09] MEDS ORDERED: ALBUTEROL HFA INHALER INHALATION STA (08:15)
--- NOTE | 2021-08-09 08:16 | ED ---
General Adult HPI - General Stated complaint: coughing Time Seen by Provider: 08/09/21 08:06 Source: patient, EMS, RN notes reviewed, old records reviewed Mode of arrival: EMS Limitations: no limitations - History of Present Illness Initial comments: Patient is a 76-year-old male with past medical history remarkable for former smoking, CAD, diabetes, prior MA, hyperlipidemia who presents emergency Department complaining of a three-day history of worsening shortness of breath, nonproductive cough. Patient is also having body aches. He is currently febrile with a temperature of 101.7. Endorses upper respiratory symptoms. Denies any abdominal pain, nausea, vomiting. His no urinary complaints. Denies any chest pain. Is not on any inhalers at home. Patient was not vaccinated for COVID-19 but did receive his influenza vaccination. States earlier today, when he awoke he also felt lightheaded when he stood. One time he fell backwards onto the couch. The second time he fell backwards, and believes he may have landed on the floor. Denies any injuries. Was able to ambulate afterwards but felt too weak to get up. Is uncertain if he expressed LOC. Denies any current headaches, weakness, numbness. His no other acute complaints at this time. - Related Data Home Medications Medication Instructions Recorded Confirmed Ranitidine HCl [Zantac] 150 mg PO PC-LUNCH 10/20/14 06/22/18 Aspirin EC [Ecotrin Low Dose] 81 mg PO PC-LUNCH 06/22/18 06/22/18 Rosuvastatin Calcium [Crestor] 5 mg PO PC-LUNCH 06/22/18 06/22/18 Previous Rx's Medication Instructions Recorded Doxycycline Monohydrate [Monodox] 100 mg PO BID 5 Days #10 cap 06/23/18 sitaGLIPtin [Januvia] 100 mg PO DAILY #30 tab 06/23/18 Albuterol Inhaler [Ventolin Hfa 2 puff INHALATION RT-QID #18 gm 06/27/21 Inhaler] Azithromycin [Zithromax Tri-Hong] 500 mg PO DAILY #3 tab 06/27/21 predniSONE [Deltasone] 40 mg PO DAILY #8 tab 06/27/21 Allergies Allergy/AdvReac Type Severity Reaction Status Date / Time No Known Allergies Allergy Verified 06/27/21 07:18 Review of Systems ROS Statement: Those systems with pertinent positive or pertinent negative responses have been documented in the HPI. Review of Systems: CONST: Endorses fever EYES: Denies blurry vision ENT: Endorses nasal congestion C/V: Denies Chest pain RESP: Endorses dyspnea, cough GI: Denies abdominal pain : Denies dysuria SKIN: Denies rash. MSK: Denies joint pain. NEURO: Denies headache ROS Other: All systems not noted in ROS Statement are negative. Past Medical History Past Medical History: Coronary Artery Disease (CAD), Diabetes Mellitus, GERD/Reflux, Hyperlipidemia, Myocardial Infarction ([place]) Last Myocardial Infarction Date:: 2007 History of Any Multi-Drug Resistant Organisms: None Reported Past Surgical History: Cholecystectomy, Heart Catheterization With Stent, Hernia Repair Past Anesthesia/Blood Transfusion Reactions: No Reported Reaction Date of Last Stent Placement:: 2007 Past Psychological History: No Psychological Hx Reported Smoking Status: Former smoker Past Alcohol Use History: Occasional Past Drug Use History: None Reported - Past Family History Mother Family Medical History: No Reported History Additional Family Medical History / Comment(s): " from old age" Father Family Medical History: CVA/TIA Additional Family Medical History / Comment(s): father from stroke when pt was 7 years old General Exam - General Exam Comments Initial Comments: General: Appears in no acute distress. Patient is febrile. HEAD: Normal with no signs of head trauma. EYES: PERRLA, EOMI, conjunctiva normal, no discharge. ENT: Hearing grossly intact, normal oropharynx. RESPIRATORY: Clear breath sounds bilaterally. No wheezes, rales, or rhonchi. Appears to be mildly short of breath. Is a slightly prolonged expiratory phase. Minimal if any wheezing. Not hypoxic. No increased work of breathing. C/V: Regular rate and rhythm. S1 and S2 auscultated, no edema, peripheral pulses 2+ and intact throughout ABD: Abd is soft, nontender, nondistended EXT: Normal range of motion, no obvious deformity. Pelvis is stable. No spinal tenderness palpation. SKIN: No rashes or lesions observed on exposed skin. NEURO: Alert and oriented x 4. Cranial nerves II-XII intact. No focal sensory or strength deficits. NIH is 0. GCS is 15. Limitations: no limitations Course Vital Signs 08/09/21 08/09/21 08/09/21 08:00 08:10 10:04 Temperature 101.7 F H Pulse Rate 70 64 Respiratory 18 20 18 Rate Blood Pressure 163/75 148/81 O2 Sat by Pulse 97 96 Oximetry Medical Decision Making - Medical Decision Making Based on the patient's presentation and physical exam, I'm concerned for what is likely an upper respiratory illness for his current symptoms. He is febrile with subjective shortness of breath. He does have a history of bronchitis. He will be administered steroids as well as breathing treatment here. We will test his Covid 19, flu. Cardiac workup also be obtained. He'll be given Tylenol for his fever. CT brain was also be obtained due to his age as well as fall with possible LOC. Patient was in agreement this plan. Patient's EKG showed no signs of acute ischemia.Patient's chest x-ray showed possible hazy opacity in the right upper lung, however patient is COVID-19 positive. Laboratory studies are remarkable for a leukopenia, white count of 3.0. Patient is a mild AK I was unable to interview and at 24. LFTs are mildly elevated to 96 L respectively. Troponin is mildly elevated to 0.05, without chest pain and is likely secondary to his JAJA. Covid is positive, is negative. On reevaluation, after the patient results of his laboratory studies. I extremity is COVID-19. I would like to admit him for his Jaja and an elevated troponin. I'm not admitting him for his COVID-19 infection. He was in agreement this plan. We will continue breathing treatments, and patient is a candidate for multiple antibody therapy. Consent for therapy and he will be administered prior to admission for observation. Cardiology will be consulted. We will trend troponins. He'll be started on maintenance IV fluids. I spoke with the admitting team under Dr. titus who accepted the patient. Patient was therefore admitted in stable condition observation with telemetry. - Lab Data Result diagrams: 08/09/21 08:25 08/09/21 08:25 Lab Results 08/09/21 08/09/21 08/09/21 Range/Units 08:25 08:25 08:25 WBC 3.0 L (3.8-10.6) k/uL RBC 4.45 (4.30-5.90) m/uL Hgb 13.5 (13.0-17.5) gm/dL Hct 40.3 (39.0-53.0) % MCV 90.6 (80.0-100.0) fL MCH 30.4 (25.0-35.0) pg MCHC 33.5 (31.0-37.0) g/dL RDW 12.9 (11.5-15.5) % Plt Count 99 L (150-450) k/uL MPV 8.5 Neutrophils % 72 % Lymphocytes % 18 % Monocytes % 8 % Eosinophils % 0 % Basophils % 0 % Neutrophils # 2.2 (1.3-7.7) k/uL Lymphocytes # 0.5 L (1.0-4.8) k/uL Monocytes # 0.3 (0-1.0) k/uL Eosinophils # 0.0 (0-0.7) k/uL Basophils # 0.0 (0-0.2) k/uL Manual Slide Review Performed RBC Morphology Normal PT 9.9 (9.0-12.0) sec INR 0.9 (<1.2) APTT 24.9 (22.0-30.0) sec Sodium 132 L (137-145) mmol/L Potassium 3.8 (3.5-5.1) mmol/L Chloride 99 (98-107) mmol/L Carbon Dioxide 20 L (22-30) mmol/L Anion Gap 13 mmol/L BUN 24 H (9-20) mg/dL Creatinine 1.42 H (0.66-1.25) mg/dL Est GFR (CKD-EPI)AfAm 56 (>60 ml/min/1.73 sqM) Est GFR (CKD-EPI)NonAf 49 (>60 ml/min/1.73 sqM) Glucose 201 H (74-99) mg/dL Plasma Lactic Acid Mason (0.7-2.0) mmol/L Calcium 8.7 (8.4-10.2) mg/dL Magnesium 1.6 (1.6-2.3) mg/dL Total Bilirubin 1.1 (0.2-1.3) mg/dL AST 96 H (17-59) U/L ALT 82 H (4-49) U/L Alkaline Phosphatase 60 (38-126) U/L Troponin I (0.000-0.034) ng/mL Total Protein 6.6 (6.3-8.2) g/dL Albumin 3.9 (3.5-5.0) g/dL Coronavirus (PCR) (Not Detectd) Influenza Type A RNA (Not Detectd) Influenza Type B (PCR) (Not Detectd) 08/09/21 08/09/21 08/09/21 Range/Units 08:25 08:25 08:32 WBC (3.8-10.6) k/uL RBC (4.30-5.90) m/uL Hgb (13.0-17.5) gm/dL Hct (39.0-53.0) % MCV (80.0-100.0) fL MCH (25.0-35.0) pg MCHC (31.0-37.0) g/dL RDW (11.5-15.5) % Plt Count (150-450) k/uL MPV Neutrophils % % Lymphocytes % % Monocytes % % Eosinophils % % Basophils % % Neutrophils # (1.3-7.7) k/uL Lymphocytes # (1.0-4.8) k/uL Monocytes # (0-1.0) k/uL Eosinophils # (0-0.7) k/uL Basophils # (0-0.2) k/uL Manual Slide Review RBC Morphology PT (9.0-12.0) sec INR (<1.2) APTT (22.0-30.0) sec Sodium (137-145) mmol/L Potassium (3.5-5.1) mmol/L Chloride (98-107) mmol/L Carbon Dioxide (22-30) mmol/L Anion Gap mmol/L BUN (9-20) mg/dL Creatinine (0.66-1.25) mg/dL Est GFR (CKD-EPI)AfAm (>60 ml/min/1.73 sqM) Est GFR (CKD-EPI)NonAf (>60 ml/min/1.73 sqM) Glucose (74-99) mg/dL Plasma Lactic Acid Mason 1.2 (0.7-2.0) mmol/L Calcium (8.4-10.2) mg/dL Magnesium (1.6-2.3) mg/dL Total Bilirubin (0.2-1.3) mg/dL AST (17-59) U/L ALT (4-49) U/L Alkaline Phosphatase (38-126) U/L Troponin I 0.050 H* (0.000-0.034) ng/mL Total Protein (6.3-8.2) g/dL Albumin (3.5-5.0) g/dL Coronavirus (PCR) (Not Detectd) Influenza Type A RNA Not Detected (Not Detectd) Influenza Type B (PCR) Not Detected (Not Detectd) 08/09/21 Range/Units 08:32 WBC (3.8-10.6) k/uL RBC (4.30-5.90) m/uL Hgb (13.0-17.5) gm/dL Hct (39.0-53.0) % MCV (80.0-100.0) fL MCH (25.0-35.0) pg MCHC (31.0-37.0) g/dL RDW (11.5-15.5) % Plt Count (150-450) k/uL MPV Neutrophils % % Lymphocytes % % Monocytes % % Eosinophils % % Basophils % % Neutrophils # (1.3-7.7) k/uL Lymphocytes # (1.0-4.8) k/uL Monocytes # (0-1.0) k/uL Eosinophils # (0-0.7) k/uL Basophils # (0-0.2) k/uL Manual Slide Review RBC Morphology PT (9.0-12.0) sec INR (<1.2) APTT (22.0-30.0) sec Sodium (137-145) mmol/L Potassium (3.5-5.1) mmol/L Chloride (98-107) mmol/L Carbon Dioxide (22-30) mmol/L Anion Gap mmol/L BUN (9-20) mg/dL Creatinine (0.66-1.25) mg/dL Est GFR (CKD-EPI)AfAm (>60 ml/min/1.73 sqM) Est GFR (CKD-EPI)NonAf (>60 ml/min/1.73 sqM) Glucose (74-99) mg/dL Plasma Lactic Acid Mason (0.7-2.0) mmol/L Calcium (8.4-10.2) mg/dL Magnesium (1.6-2.3) mg/dL Total Bilirubin (0.2-1.3) mg/dL AST (17-59) U/L ALT (4-49) U/L Alkaline Phosphatase (38-126) U/L Troponin I (0.000-0.034) ng/mL Total Protein (6.3-8.2) g/dL Albumin (3.5-5.0) g/dL Coronavirus (PCR) Detected A (Not Detectd) Influenza Type A RNA (Not Detectd) Influenza Type B (PCR) (Not Detectd) - EKG Data -: EKG Interpreted by Me EKG Comments: 12-lead Electrocardiogram Interpretation Note EKG was reviewed and interpreted by myself. 12-lead ECG performed at 0811 is interpreted by me as revealing normal sinus rhythm at a rate of 74 beats per minute. Irving is normal. There were no ST or T wave abnormalities to suggest myocardial ischemia or injury. R wave progression across the precordium was satisfactory. By my interpretation this EKG is non-diagnostic for acute ischemia. Disposition Clinical Impression: JAJA (acute kidney injury), Elevated troponin, Febrile illness Disposition: ADMITTED IP TO THIS HOSP Condition: Stable
[2021-08-09 08:35] LABS: Basophils % (A) 0 %; Eosinophils % (A) 0 %; HCT 40.3 % (39.0-53.0); HGB 13.5 gm/dL (13.0-17.5); Lymphocytes # (A) 0.5 k/uL (1.0-4.8); Lymphocytes % (A) 18 %; MCH 30.4 pg (25.0-35.0); MCHC 33.5 g/dL (31.0-37.0); MCV 90.6 fL (80.0-100.0); Mean Platelet Volume 8.5; Monocytes # (A) 0.3 k/uL (0-1.0); Monocytes % (A) 8 %; Neutrophils # (A) 2.2 k/uL (1.3-7.7); Neutrophils % (A) 72 %; RBC 4.45 m/uL (4.30-5.90); RDW 12.9 % (11.5-15.5)
[2021-08-09 08:47] LABS: Albumin 3.9 g/dL (3.5-5.0); Calcium 8.7 mg/dL (8.4-10.2); Magnesium 1.6 mg/dL (1.6-2.3); Potassium 3.8 mmol/L (3.5-5.1); Total Bilirubin 1.1 mg/dL (0.2-1.3); Total Protein 6.6 g/dL (6.3-8.2)
--- NOTE | 2021-08-09 08:54 | XR ---
EXAMINATION TYPE: XR chest 2V DATE OF EXAM: 08/09/2021 COMPARISON: 06/27/2021 HISTORY: Shortness of breath TECHNIQUE: Frontal and lateral views of the chest are obtained. FINDINGS: There is interval development of a focal area of interstitial and vague airspace opacity i n the right upper lobe suspicious for acute pneumonia. The heart size is normal. There is no large pleural effusion and no pneumothorax. The osseous structu res are intact IMPRESSION: Findings consistent with a focal acute cardiopulmonary process in the right upper lobe
--- NOTE | 2021-08-09 08:57 | CT ---
EXAMINATION TYPE: CT brain wo con DATE OF EXAM: 08/09/2021 COMPARISON: None HISTORY: Fall, head trauma, normal mental status CT DLP: 1290.4 mGycm Automated exposure control for dose reduction was used. FINDINGS: The ventricles, basal cisterns and sulci over the convexities are within normal limits for the patien t's age. There is no mass effect or shift of the midline structures. No abnormal density is seen throughout the brain parenchyma and there is no acute intra or extra-axia l hemorrhage. Posterior fossa is grossly normal. The intraorbital contents appear normal and symmetric. There are mild chronic inflammatory changes in the left axilla sinus and possibly mild acute inflammation in the right maxillary sinus. The calvari um is intact IMPRESSION: 1. NO ACUTE BLEED OR MASS EFFECT. 2. INFLAMMATORY CHANGES IN THE MAXILLARY SINUSES DESCRIBED ABOVE.
[2021-08-09 09:01] LABS: INR 0.9 (<1.2); Partial Thromboplastin Time 24.9 sec (22.0-30.0); Prothrombin Time 9.9 sec (9.0-12.0)
[2021-08-09] MEDS ORDERED: NALOXONE 0.4 MG/ML 1 ML VIAL IV PRN (09:41)
[2021-08-09] MEDS ORDERED: ALBUTEROL HFA INHALER INHALATION PRN (09:43)
[2021-08-09] MEDS ORDERED: SODIUM CHLORIDE 0.9% 50 ML IVPB ONE (09:45)
[2021-08-09 09:46] LABS: Platelet Count 99 k/uL (150-450)
[2021-08-09] MEDS ORDERED: SOTROVIMAB (EUA) 500 MG in SODIUM CHLORIDE 0.9% 100 ML IVPB ONE (10:00)
[2021-08-09] MEDS: ZINC SULFATE 220 MG CAP PO SCH (12:08)
[2021-08-09] MEDS: CHOLECALCIFEROL 25 MCG (1000 IU) TABLET PO SCH (12:09)
[2021-08-09] MEDS: ASCORBIC ACID 500 MG TAB PO SCH (12:09)
--- NOTE | 2021-08-09 15:04 | P.HPIM ---
History of Present Illness this is a pleasant 76 years old male with past medical history of Coronary Artery Disease status post stent, Diabetes Mellitus, GERD, Hyperlipidemia, his PCP is Dr. Aparicio at their clinic as he states. Patient states he presents because he had a fever at home and he was not eating much or drinking a lot over the last 2-3 days he feels generally weak and uncomfortable so he decided to come to emergency room. He has cough with some clear and opaque phlegm but he denies overt chest pain or dyspnea. He denies any diarrhea or vomiting or abdominal pain. No dysuria or urgency. No weakness or numbness or headache. No rash. This morning patient when he woke up and stood up he felt dizziness and fell on the back of his head on the couch. An incision time he fell on the floor. Patient has some memory problems and we have to remind him with some of the details He drinks alcohol occasionally but no smoking or illicit drugs. He is been diagnosed with diabetes mellitus and he takes pills but he could not remember the name. on admission pt has fever of 101.7, rest of vitals look stable, mildly hypertensive. Labs reviewed showing mild leukopenia at 3.0, mild thrombocytopenia at 99 and mild lymphopenia at 0.5. INR is 0.9 Sodium is 132, creatinine is 1.4 and be on is 24. Baseline creatinine is 1.4- 1.5 Liver enzymes mildly elevated with AST 36 and ALT is 82. Troponin slightly elevated at 0.05. Gray virus detected. Influenza was a varus were negative. CT of the brain: No acute bleed or mass effect. Inflammatory changes in the maxillary sinus. Chest x-ray: There is interval development of a focal area of interstitial and vague opacity in the right upper lobe suspicious for acute pneumonia, per radiologist In the emergency room. Received normal saline, Solu-Medrol, sotrovimab Review of Systems CONSTITUTIONAL: , no malaise, no fatigue. HEENT: No recent visual problems or hearing problems. Denied any sore throat. CARDIOVASCULAR: No orthopnea, PND, no palpitations, no syncope. PULMONARY: No shortness of breath, no hemoptysis. GASTROINTESTINAL: No diarrhea, no nausea, no vomiting, no abdominal pain. Normoactive bowel sounds. NEUROLOGICAL: No headaches, no weakness, no numbness. HEMATOLOGICAL: Denies any bleeding or petechiae. GENITOURINARY: Denies any burning micturition, frequency, or urgency. MUSCULOSKELETAL/RHEUMATOLOGICAL: Denies any joint pain, swelling, or any muscle pain. ENDOCRINE: Denies any polyuria or polydipsia. Past Medical History Past Medical History: Coronary Artery Disease (CAD), Diabetes Mellitus, G ERD/Reflux, Hyperlipidemia, Myocardial Infarction ([place]) Last Myocardial Infarction Date:: 2007 History of Any Multi-Drug Resistant Organisms: None Reported Past Surgical History: Cholecystectomy, Heart Catheterization With Stent, Hernia Repair Past Anesthesia/Blood Transfusion Reactions: No Reported Reaction Date of Last Stent Placement:: 2007 Past Psychological History: No Psychological Hx Reported Smoking Status: Former smoker Past Alcohol Use History: Occasional Past Drug Use History: None Reported - Past Family History Mother Family Medical History: No Reported History Additional Family Medical History / Comment(s): " from old age" Father Family Medical History: CVA/TIA Additional Family Medical History / Comment(s): father from stroke when pt was 7 years old Medications and Allergies Home Medications Medication Instructions Recorded Confirmed Type Alogliptin Benzoate [Alogliptin] 25 mg PO DAILY 08/09/21 08/09/21 History Omeprazole 20 mg PO DAILY 08/09/21 08/09/21 History Rosuvastatin Calcium [Crestor] 20 mg PO DAILY 08/09/21 08/09/21 History Allergies Allergy/AdvReac Type Severity Reaction Status Date / Time No Known Allergies Allergy Verified 08/09/21 10:37 Physical Exam Vitals: Vital Signs Temp Pulse Resp BP Pulse Ox 08/09/21 10:04 64 18 148/81 96 08/09/21 08:10 20 08/09/21 08:00 101.7 F H 70 18 163/75 97 Intake and Output 08/08/21 08/09/21 08/09/21 22:59 06:59 14:59 Other: Weight 52.163 kg -GENERAL: The patient is alert and oriented x3, not in any acute distress. Well developed, well nourished. Generally weak HEENT: Pupils are round and equally reacting to light. EOMI. No scleral icterus. No conjunctival pallor. Normocephalic, atraumatic. No pharyngeal erythema. No thyromegaly. CARDIOVASCULAR: S1 and S2 present. No murmurs, rubs, or gallops. PULMONARY: Chest is clear to auscultation, no wheezing or crackles. ABDOMEN: Soft, nontender, nondistended, normoactive bowel sounds. No palpable organomegaly. MUSCULOSKELETAL: No joint swelling or deformity. EXTREMITIES: No cyanosis, clubbing, or pedal edema. NEUROLOGICAL: Gross neurological examination did not reveal any focal deficits. SKIN: No rashes. No petechiae Results CBC & Chem 7: 08/09/21 08:25 08/09/21 08:25 Labs: Abnormal Lab Results - Last 24 Hours (Table) 08/09/21 08/09/21 08/09/21 Range/Units 08:25 08:25 08:25 WBC 3.0 L (3.8-10.6) k/uL Plt Count 99 L (150-450) k/uL Lymphocytes # 0.5 L (1.0-4.8) k/uL Sodium 132 L (137-145) mmol/L Carbon Dioxide 20 L (22-30) mmol/L BUN 24 H (9-20) mg/dL Creatinine 1.42 H (0.66-1.25) mg/dL Glucose 201 H (74-99) mg/dL AST 96 H (17-59) U/L ALT 82 H (4-49) U/L Troponin I 0.050 H* (0.000-0.034) ng/mL Coronavirus (PCR) (Not Detectd) 08/09/21 Range/Units 08:32 WBC (3.8-10.6) k/uL Plt Count (150-450) k/uL Lymphocytes # (1.0-4.8) k/uL Sodium (137-145) mmol/L Carbon Dioxide (22-30) mmol/L BUN (9-20) mg/dL Creatinine (0.66-1.25) mg/dL Glucose (74-99) mg/dL AST (17-59) U/L ALT (4-49) U/L Troponin I (0.000-0.034) ng/mL Coronavirus (PCR) Detected A (Not Detectd) Assessment and Plan Assessment: Right upper pneumonia most likely secondary to Covid -19 infection Increased inflammatory markers Elevated troponin to rule out cardiac causes Fall with head trauma Memory problems, possible early dementia Alzheimer dementia diabetes mellitus, mild. On diet control only.hemoglobin A1c was 6.6 percent on 2018, currently is on oral hypoglycemic medication but he could not remember the name as he states Hyperlipidemia Chronic kidney disease stage III History of coronary artery disease status post stent History of GERD Plan: Is a pleasant 76 years old male who presents with covid pneumonia and fall and dizziness with elevated troponin We will start vitamin C, vitamin D and zinc Infectious disease consult Cardiology consult Neuro check Check TSH and orthostatic vitals Labs and medication were reviewed.. Continue same treatment. Continue with symptomatic treatment. Resume home medication. Monitor lytes and vitals. DVT and GI prophylaxis. Further recommendations depends on the clinical course of the patient DVT prophylaxis: Subcutaneous heparin GI Prophylaxis: Pepcid PT/OT: Pending Prognosis is guarded
[2021-08-09] MEDS: SODIUM CHLORIDE 0.9% 1,000 ML IV SCH (15:15)
[2021-08-09] MEDS: INSULIN ASPART (NovoLOG) 100 UNIT/ML VIAL SQ SCH ×2 (18:38→23:44)
[2021-08-09] MEDS: HEPARIN SODIUM,PORCINE/PF 5,000 UNIT/0.5 ML SYRINGE SQ SCH (18:38)
[2021-08-09 18:43] LABS: Glucose,Whole Blood 307 mg/dL (75-99)
[2021-08-09 19:21] LABS: Appearance,Urine Cloudy (Clear); Bacteria,Urine Few /hpf; Bilirubin,Urine Negative (Negative); Blood,Urine Trace (Negative); Color,Urine Light Yellow; Glucose,Urine (UA) 4+ (Negative); Leukocyte Esterase,Urine Large (Negative); Mucus,Urine Rare /hpf; Nitrite,Urine Negative (Negative); PH, Urine 5.5 (5.0-8.0); Protein,Urine 1+ (Negative); RBC,Urine 20 /hpf (0-5); Specific Gravity,Urine 1.022 (1.001-1.035); Squamous Epithelial Cell,Urine 1 /hpf (0-4); Urobilinogen,Urine <2.0 mg/dL (<2.0); WBC,Urine 27 /hpf (0-5)
[2021-08-09 19:24] LABS: Ketones,Urine 2+ (Negative)
--- NOTE | 2021-08-09 21:42 | P.CONS ---
History of Present Illness - Reason for Consult Consult date: 08/09/21 covid 19 pneumonia Requesting physician: Edison E Sheet - Chief Complaint shortness of breath and cough x 3 days - History of Present Illness History of present illness : Patient is 76-year-old male with a past medical history began for coronary disease diabetes hyperlipidemia presented to the emergency room this morning for evaluation of increasing shortness of breath body aches cough which is moderate intensity not bringing up any sputum this patient's symptom has been going on for about 3 days before presentation to the hospital the patient denies having abdominal pain no nausea no vomiting did have some diarrhea initially patient not vaccinated for COVID-19 on presentation to the hospital patient did have a fever of 101.7 degree from height however the patient was not hypoxic no need for supplemental oxygen patient did have leukopenia as well as lymphopenia. Creatinine is mildly elevated lipids and elevated also elevated troponin urine was mildly positive chronically cirrhosis positive influenza was negative patient did have a chest x-ray focal acute cardiopulmonary process in the right upper lobe, infectious was consulted for further management Review of system: CONSTITUTIONAL: Positive for weakness along with the fever. EYES: No complaint. ENT: No complaint. RESPIRATORY: As per history of present illness. CARDIOVASCULAR: As per history of present illness. GENITOURINARY: No complaint. GASTROINTESTINAL: No complaint. MUSCULOSKELETAL: No complaint. INTEGUMENTARY: No complaint. PSYCHOLOGIC: No complaint. ENDOCRINE: No complaint. NEUROLOGIC: No complaint. Past medical history : Reviewed, documented below Past surgical history : Reviewed, documented below Social history: Reviewed, documented below Medications: Reviewed, as documented below EXAMINATION: Vital sigans= Reviewed and documented below GENERAL DESCRIPTION: Elderly male lying in bed, no distress. No tachypnea or accessory muscle of respiration use. HEENT: Shows Pallor , no scleral icterus. Oral mucous membrane is dry. NECK: Trachea central, no thyromegaly. LUNGS: Unlabored breathing. Decreased present in the base. No wheeze or crackle. HEART: S1, S2, regular rate and rhythm. ABDOMEN: Soft, no tenderness , guarding or rigidity EXTREMITIES: No edema of feet. SKIN: No rash, no masses palpable. NEUROLOGICAL: The patient is awake, alert, oriented x3, mood and affect normal. LABS AND RADIOLOGY: Reviewed results see below Assessment : Patient presented to hospital with increasing shortness of breath cough fever symptom has been going on for about 3 days exacerbation did have acute COVID-19 pneumonia symptom has been going on for about 3 days however the patient is not hypoxic and there is no need for supplemental oxygen that will disqualify him for remdesivir per [facility] policy Plan: 1-patient to continue heparin zinc and ascorbic acid 2-no need for steroids or remdesivir as the patient not hypoxic 3-droplet isolation and respiratory support We will follow on clinical condition and cultures to further adjust medication if needed Thank you for this consultation we will follow the patient along with you Past Medical History Past Medical History: Coronary Artery Disease (CAD), Diabetes Mellitus, GERD/Reflux, Hyperlipidemia, Myocardial Infarction ([place]) Last Myocardial Infarction Date:: 2007 History of Any Multi-Drug Resistant Organisms: None Reported Past Surgical History: Cholecystectomy, Heart Catheterization With Stent, Hernia Repair Past Anesthesia/Blood Transfusion Reactions: No Reported Reaction Date of Last Stent Placement:: 2007 Past Psychological History: No Psychological Hx Reported Smoking Status: Former smoker Past Alcohol Use History: Occasional Past Drug Use History: None Reported - Past Family History Mother Family Medical History: No Reported History Additional Family Medical History / Comment(s): " from old age" Father Family Medical History: CVA/TIA Additional Family Medical History / Comment(s): father from stroke when pt was 7 years old Medications and Allergies Home Medications Medication Instructions Recorded Confirmed Type Alogliptin Benzoate [Alogliptin] 25 mg PO DAILY 08/09/21 08/09/21 History Omeprazole 20 mg PO DAILY 08/09/21 08/09/21 History Rosuvastatin Calcium [Crestor] 20 mg PO DAILY 08/09/21 08/09/21 History Allergies Allergy/AdvReac Type Severity Reaction Status Date / Time No Known Allergies Allergy Verified 08/09/21 10:37 Physical Exam Vitals: Vital Signs Temp Pulse Resp BP Pulse Ox 08/09/21 10:04 64 18 148/81 96 08/09/21 08:10 20 08/09/21 08:00 101.7 F H 70 18 163/75 97 Intake and Output 08/08/21 08/09/21 08/09/21 22:59 06:59 14:59 Other: Weight 52.163 kg Results CBC & Chem 7: 08/09/21 08:25 08/09/21 08:25 Labs: Abnormal Lab Results - Last 24 Hours (Table) 08/09/21 08/09/21 08/09/21 Range/Units 08:25 08:25 08:25 WBC 3.0 L (3.8-10.6) k/uL Plt Count 99 L (150-450) k/uL Lymphocytes # 0.5 L (1.0-4.8) k/uL Sodium 132 L (137-145) mmol/L Carbon Dioxide 20 L (22-30) mmol/L BUN 24 H (9-20) mg/dL Creatinine 1.42 H (0.66-1.25) mg/dL Glucose 201 H (74-99) mg/dL AST 96 H (17-59) U/L ALT 82 H (4-49) U/L Troponin I 0.050 H* (0.000-0.034) ng/mL Coronavirus (PCR) (Not Detectd) 08/09/21 08/09/21 Range/Units 08:32 11:17 WBC (3.8-10.6) k/uL Plt Count (150-450) k/uL Lymphocytes # (1.0-4.8) k/uL Sodium (137-145) mmol/L Carbon Dioxide (22-30) mmol/L BUN (9-20) mg/dL Creatinine (0.66-1.25) mg/dL Glucose (74-99) mg/dL AST (17-59) U/L ALT (4-49) U/L Troponin I 0.052 H* (0.000-0.034) ng/mL Coronavirus (PCR) Detected A (Not Detectd)
[2021-08-09 23:03] LABS: Glucose,Whole Blood 270 mg/dL (75-99)
[2021-08-09] MEDS: ACETAMINOPHEN TAB 325 MG TAB PO PRN (23:06)
[2021-08-10] MEDS: HEPARIN SODIUM,PORCINE/PF 5,000 UNIT/0.5 ML SYRINGE SQ SCH ×3 (03:27→17:31)
[2021-08-10] MEDS: SODIUM CHLORIDE 0.9% 1,000 ML IV SCH ×3 (05:57→15:07)
[2021-08-10 06:13] LABS: Glucose,Whole Blood 240 mg/dL (75-99)
[2021-08-10] MEDS: INSULIN ASPART (NovoLOG) 100 UNIT/ML VIAL SQ SCH ×4 (06:15→21:58)
--- NOTE | 2021-08-10 08:04 | P.CRDCN ---
History of Present Illness Consult date: 08/10/21 Consult reason: non-Q-wave NE History of present illness: 76-year-old gentleman with history of dyslipidemia presented to Hospital complaining of fatigue tiredness shortness of breath and flulike illness that started around Tuesday of last week. His symptoms got worse to the ER and is being admitted he has been tested positive for Covid and is negative for influenza I have been consulted because of mildly elevated troponin EKG shows sinus rhythm without acute ST-T wave changes Patient does does not have chest pain. No history of leg edema or PND or orthopnea. There is no prior history of myocardial infarction There is history of coronary artery disease and had a stent nearly 10 years ago He does not see a director of online education regularly and hasn't had any recent cardiac testing The time of my evaluation patient has cough but is otherwise comfortable at rest and is free of respiratory distress and is not requiring any supplemental oxygen Review of Systems Constitutional: Significant for fatigue and tiredness and fever. Eyes: Denies blurred vision. Denies pain. Ears, nose, mouth and throat: Denies headache. Denies sore throat. Cardiovascular: Denies chest pain. Denies shortness of breath. Respiratory: Significant for cough and shortness of breath. Gastrointestinal: Denies abdominal pain. Denies diarrhea. Denies nausea. Denies vomiting. Musculoskeletal: Denies myalgias. Integumentary: Denies pruritus. Denies rash. Neurological: Denies numbness. Denies weakness. Psychiatric: Denies anxiety. Denies depression. Endocrine: Denies fatigue. Denies weight change. Genitourinary: Denies burning, hematuria, frequency of urination. Hematological: No anemia or excess bleeding. Past Medical History Past Medical History: Coronary Artery Disease (CAD), Diabetes Mellitus, GERD/Reflux, Hyperlipidemia, Myocardial Infarction ([place]) Last Myocardial Infarction Date:: 2007 History of Any Multi-Drug Resistant Organisms: None Reported Past Surgical History: Cholecystectomy, Heart Catheterization With Stent, Hernia Repair Past Anesthesia/Blood Transfusion Reactions: No Reported Reaction Date of Last Stent Placement:: 2007 Past Psychological History: No Psychological Hx Reported Additional Psychological History / Comment(s): pt lives alone in apt. is independant, drives, no home care services, has home o2 and neb. Smoking Status: Former smoker Past Alcohol Use History: Occasional Additional Past Alcohol Use History / Comment(s): started smoking at age 19 and quit at age 32 a pack would last 2-3 days Past Drug Use History: None Reported - Past Family History Mother Family Medical History: No Reported History Additional Family Medical History / Comment(s): " from old age" Father Family Medical History: CVA/TIA Additional Family Medical History / Comment(s): father from stroke when pt was 7 years old Medications and Allergies Home Medications Medication Instructions Recorded Confirmed Type Alogliptin Benzoate [Alogliptin] 25 mg PO DAILY 08/09/21 08/09/21 History Omeprazole 20 mg PO DAILY 08/09/21 08/09/21 History Rosuvastatin Calcium [Crestor] 20 mg PO DAILY 08/09/21 08/09/21 History Allergies Allergy/AdvReac Type Severity Reaction Status Date / Time No Known Allergies Allergy Verified 08/09/21 10:37 Physical Exam Vitals: Vital Signs Temp Pulse Resp BP Pulse Ox 08/10/21 03:29 99.5 F 62 14 135/76 96 08/09/21 22:30 100.9 F H 68 16 141/84 96 08/09/21 19:00 99.8 F H 93 18 185/90 96 08/09/21 10:04 64 18 148/81 96 08/09/21 08:10 20 08/09/21 08:00 101.7 F H 70 18 163/75 97 Intake and Output 08/09/21 08/10/21 08/10/21 22:59 06:59 14:59 Other: # Voids 1 Weight 52.163 kg General: The patient is awake and alert, in no distress, and does not appear acutely ill. Skin: Skin is warm and dry and no rashes or lesions are noted. Eye: Pupils are equal, round and reactive to light, extra-ocular movements are intact; there is normal conjunctiva bilaterally. Ears, nose, mouth and throat: There are moist mucous membranes and no oral lesions. Neck: The neck is supple, there is no tenderness or JVD. Cardiovascular: There is a regular rate and rhythm. No murmur, rub or gallop is appreciated. Respiratory: Lungs are clear to auscultation, respirations are non-labored, breath sounds are equal. Gastrointestinal: Soft, non-distended, non-tender abdomen without masses or organomegaly noted. There is no rebound or guarding present. Bowel sounds are unremarkable. Back: There is no tenderness to palpation in the midline. There is no obvious deformity. Musculoskeletal: Normal ROM, no tenderness, There is no pedal edema. There is no calf tenderness or swelling. Extremities: No edema. Vascular: Femoral pulse is normal. Posterior tibial pulses are normal .Dorsalis pedis is palpable. Neurological: CN II-XII intact. There are no obvious motor or sensory deficits. Speech is normal. Psychiatric: Cooperative, appropriate mood & affect, normal judgment. Results 08/09/21 08:25 08/09/21 08:25 Cardiac Enzymes 08/09/21 08/09/21 08/09/21 Range/Units 08:25 08:25 11:17 AST 96 H (17-59) U/L Troponin I 0.050 H* 0.052 H* (0.000-0.034) ng/mL 08/09/21 Range/Units 14:52 AST (17-59) U/L Troponin I 0.034 (0.000-0.034) ng/mL Coagulation 08/09/21 Range/Units 08:25 PT 9.9 (9.0-12.0) sec APTT 24.9 (22.0-30.0) sec CBC 08/09/21 Range/Units 08:25 WBC 3.0 L (3.8-10.6) k/uL RBC 4.45 (4.30-5.90) m/uL Hgb 13.5 (13.0-17.5) gm/dL Hct 40.3 (39.0-53.0) % Plt Count 99 L (150-450) k/uL Comprehensive Metabolic Panel 08/09/21 Range/Units 08:25 Sodium 132 L (137-145) mmol/L Potassium 3.8 (3.5-5.1) mmol/L Chloride 99 (98-107) mmol/L Carbon Dioxide 20 L (22-30) mmol/L BUN 24 H (9-20) mg/dL Creatinine 1.42 H (0.66-1.25) mg/dL Glucose 201 H (74-99) mg/dL Calcium 8.7 (8.4-10.2) mg/dL AST 96 H (17-59) U/L ALT 82 H (4-49) U/L Alkaline Phosphatase 60 (38-126) U/L Total Protein 6.6 (6.3-8.2) g/dL Albumin 3.9 (3.5-5.0) g/dL Current Medications Generic Name Dose Route Start Last Admin Trade Name Freq PRN Reason Stop Dose Admin Acetaminophen 650 mg 08/09/21 09:41 08/09/21 23:06 Acetaminophen Tab 325 Mg Tab PO 650 mg Q6HR PRN Administration Mild Pain or Fever > 100.5 Albuterol Sulfate 2 puff 08/09/21 09:43 Albuterol Hfa Inhaler INHALATION RT-QID PRN Shortness Of Breath Or Wheezing Ascorbic Acid 1,000 mg 08/09/21 11:45 08/09/21 12:09 Ascorbic Acid 500 Mg Tab PO 1,000 mg DAILY KYRIE Administration Cholecalciferol 50 mcg 08/09/21 11:45 08/09/21 12:09 Cholecalciferol 25 Mcg (1000 Iu) Tablet PO 50 mcg DAILY KYRIE Administration Heparin Sodium (Porcine) 5,000 unit 08/09/21 16:00 08/10/21 03:27 Heparin Sodium,Porcine/Pf 5,000 Unit/0.5 Ml Syringe SQ 5,000 unit Q8HR KYRIE Administration Sodium Chloride 1,000 mls @ 75 mls/hr 08/09/21 15:15 08/10/21 05:57 Saline 0.9% IV Not Given .[id number] KYRIE Ceftriaxone Sodium 1 gm/ 50 mls @ 100 mls/hr 08/09/21 23:45 08/10/21 03:39 Sodium Chloride IVPB 100 mls/hr Q24H KYRIE Administration Insulin Aspart 0 unit 08/09/21 17:30 08/10/21 06:15 Insulin Aspart (Novolog) 100 Unit/Ml Vial SQ 3 unit ACHS KYRIE Administration Protocol Naloxone HCl 0.2 mg 08/09/21 09:41 Naloxone 0.4 Mg/Ml 1 Ml Vial IV Q2M PRN Opioid Reversal Zinc Sulfate 220 mg 08/09/21 11:45 08/09/21 12:08 Zinc Sulfate 220 Mg Cap PO 220 mg DAILY KYRIE Administration Intake and Output 08/09/21 08/10/21 08/10/21 22:59 06:59 14:59 Other: # Voids 1 Weight 52.163 kg 08/09/21 08:25 08/09/21 08:25 EKG Interpretations (text) Normal sinus rhythm with nonspecific ST-T wave changes Assessment and Plan Assessment: Acute coronary virus infection Possible pneumonia Elevated troponin probably secondary to non-ST segment elevation NE or due to rotavirus infection Known CAD status post prior myocardial infarction I will obtain a 2-D echo Treat the patient with aspirin Continue the statins He does not need invasive angiography at this time Once Gray virus infection related symptoms resolved we'll consider outpatient stress testing to evaluate for ischemia and if necessary perform cardiac catheterization
[2021-08-10] MEDS: ASCORBIC ACID 500 MG TAB PO SCH (08:17)
[2021-08-10] MEDS: ZINC SULFATE 220 MG CAP PO SCH (08:17)
[2021-08-10] MEDS: CHOLECALCIFEROL 25 MCG (1000 IU) TABLET PO SCH (08:17)
[2021-08-10 08:20] LABS: Glucose,Whole Blood 214 mg/dL (75-99)
[2021-08-10 10:58] LABS: Basophils % (A) 0 %; Eosinophils % (A) 0 %; HGB 12.8 gm/dL (13.0-17.5); Lymphocytes # (A) 0.7 k/uL (1.0-4.8); Lymphocytes % (A) 7 %; MCH 29.8 pg (25.0-35.0); MCV 93.2 fL (80.0-100.0); Mean Platelet Volume 8.2; Monocytes # (A) 0.3 k/uL (0-1.0); Monocytes % (A) 3 %; Neutrophils # (A) 8.3 k/uL (1.3-7.7); Neutrophils % (A) 89 %; Platelet Count 133 k/uL (150-450); RBC 4.29 m/uL (4.30-5.90); RDW 13.1 % (11.5-15.5); WBC 9.3 k/uL (3.8-10.6)
[2021-08-10 11:16] LABS: African American GFR (CKD) 57 (>60 ml/min/1.73 sqM); Anion Gap 8 mmol/L; Blood Urea Nitrogen 32 mg/dL (9-20); Calcium 8.4 mg/dL (8.4-10.2); Carbon Dioxide 23 mmol/L (22-30); Chloride 101 mmol/L (98-107); Glucose 283 mg/dL (74-99); LDH 918 U/L (313-618); Non-African American GFR(CKD) 49 (>60 ml/min/1.73 sqM); Potassium 3.7 mmol/L (3.5-5.1); Sodium 132 mmol/L (137-145)
--- NOTE | 2021-08-10 11:42 | ECHOF ---
Referral Reason: MEASUREMENTS -------- HEIGHT: 172.7 cm WEIGHT: 52.2 kg BP: 145/74 RVIDd: 3.7 cm (< 3.3) IVSd: 1.4 cm (0.6 - 1.1) LVIDd: 4.1 cm (3.9 - 5.3) LVPWd: 1.3 cm (0.6 - 1.1) IVSs: 1.9 cm LVIDs: 2.7 cm LVPWs: 2.3 cm LAESV Index (A-L): 31.14 ml/m Ao Diam: 3.8 cm (2.0 - 3.7) AV Cusp: 2.0 cm (1.5 - 2.6) LA Diam: 3.2 cm (2.7 - 3.8) MV EXCURSION: 13.838 mm (> 18.000) MV EF SLOPE: 63 mm/s (70 - 150) EPSS: 1.3 cm MV E Feliz: 0.74 m/s MV DecT: 239 ms MV A Feliz: 1.00 m/s MV E/A Ratio: 0.74 RAP: 5.00 mmHg RVSP: 30.11 mmHg FINDINGS -------- Sinus rhythm. This was a technically adequate study. The left ventricular size is normal. There is moderate concentric left ventricular hypertrophy. O verall left ventricular systolic function is normal with, an EF between 55 - 60 %. The right ventricle is mildly enlarged. LA is midly dilated 29-33ml/m2. The right atrial size is normal. Interatrial and interventricular septum intact. There is no evidence of aortic regurgitation. There is no evidence of aortic stenosis. Mild mitral regurgitation is present. Mild tricuspid regurgitation present. There is borderline pulmonary artery hypertension. The righ t ventricular systolic pressure, as measured by Doppler, is 30.11mmHg. There is no pulmonic regurgitation present. The aortic root size is normal. IVC Not well visulized. There is no pericardial effusion. CONCLUSIONS -------- 1. The left ventricular size is normal. 2. There is moderate concentric left ventricular hypertrophy. 3. Overall left ventricular systolic function is normal with, an EF between 55 - 60 %. 4. The right ventricle is mildly enlarged. 5. LA is midly dilated 29-33ml/m2. 6. Mild mitral regurgitation is present. 7. Mild tricuspid regurgitation present. 8. There is borderline pulmonary artery hypertension. 9. The right ventricular systolic pressure, as measured by Doppler, is 30.11mmHg. CIRCUIT BOARD ASSEMBLER: Kelley Villalpando RDCS
[2021-08-10 11:47] LABS: C Reactive Protein 3.5 mg/dL (<1.0)
--- NOTE | 2021-08-10 12:36 | P.PN ---
Subjective this is a pleasant 76 years old male with past medical history of Coronary Artery Disease status post stent, Diabetes Mellitus, GERD, Hyperlipidemia, his PCP is Dr. Aparicio at their clinic as he states. Patient states he presents because he had a fever at home and he was not eating much or drinking a lot over the last 2-3 days he feels generally weak and uncomfortable so he decided to come to emergency room. He has cough with some clear and opaque phlegm but he denies overt chest pain or dyspnea. He denies any diarrhea or vomiting or abdominal pain. No dysuria or urgency. No weakness or numbness or headache. No rash. This morning patient when he woke up and stood up he felt dizziness and fell on the back of his head on the couch. An incision time he fell on the floor. Patient has some memory problems and we have to remind him with some of the details He drinks alcohol occasionally but no smoking or illicit drugs. He is been diagnosed with diabetes mellitus and he takes pills but he could not remember the name. on admission pt has fever of 101.7, rest of vitals look stable, mildly hypertensive. Labs reviewed showing mild leukopenia at 3.0, mild thrombocytopenia at 99 and mild lymphopenia at 0.5. INR is 0.9 Sodium is 132, creatinine is 1.4 and be on is 24. Baseline creatinine is 1.4- 1.5 Liver enzymes mildly elevated with AST 36 and ALT is 82. Troponin slightly elevated at 0.05. Gray virus detected. Influenza was a varus were negative. CT of the brain: No acute bleed or mass effect. Inflammatory changes in the maxillary sinus. Chest x-ray: There is interval development of a focal area of interstitial and vague opacity in the right upper lobe suspicious for acute pneumonia, per radiologist In the emergency room. Received normal saline, Solu-Medrol, sotrovimab 08/10/2021 Patient still feels generally weak but gradually improving. No urinary symptoms but he has exertional dyspnea and cough with some clear phlegm. He is hemodynamically stable and with no more fever. His WBC improved to normal 9.3 and creatinine is stable at 1.4. LDH slightly elevated at 918 and CRP as well as a 3.5. Urine culture is pending also echocardiogram ordered by information technology administrator for high troponin is also pending Physical therapy evaluation is pending Patient is kept on normal saline at 75 mL/h, vitamin C, D and Z. Also he is on ceftriaxone Objective - Vital Signs Vital signs: Vital Signs Temp 97.7 F 08/10/21 08:00 Pulse 64 08/10/21 08:00 Resp 16 08/10/21 08:00 BP 145/74 08/10/21 08:00 Pulse Ox 98 08/10/21 08:00 Intake & Output 08/09/21 08/10/21 08/10/21 18:59 06:59 18:59 Weight 52.163 kg 52.163 kg Other: # Voids 1 - Exam -GENERAL: The patient is alert and oriented x3, not in any acute distress. Well developed, well nourished. Generally weak HEENT: Pupils are round and equally reacting to light. EOMI. No scleral icterus. No conjunctival pallor. Normocephalic, atraumatic. No pharyngeal erythema. No thyromegaly. CARDIOVASCULAR: S1 and S2 present. No murmurs, rubs, or gallops. PULMONARY: Chest is clear to auscultation, no wheezing or crackles. ABDOMEN: Soft, nontender, nondistended, normoactive bowel sounds. No palpable organomegaly. MUSCULOSKELETAL: No joint swelling or deformity. EXTREMITIES: No cyanosis, clubbing, or pedal edema. NEUROLOGICAL: Gross neurological examination did not reveal any focal deficits. SKIN: No rashes. No petechiae - Labs CBC & Chem 7: 08/10/21 10:37 08/10/21 10:37 Labs: Abnormal Lab Results - Last 24 Hours (Table) 08/09/21 08/09/21 08/09/21 Range/Units 11:17 18:33 18:47 POC Glucose (mg/dL) 307 H (75-99) mg/dL Troponin I 0.052 H* (0.000-0.034) ng/mL Urine Protein 1+ H (Negative) Urine Glucose (UA) 4+ H (Negative) Urine Ketones 2+ H (Negative) Urine Blood Trace H (Negative) Ur Leukocyte Esterase Large H (Negative) Urine RBC 20 H (0-5) /hpf Urine WBC 27 H (0-5) /hpf Urine Bacteria Few H (None) /hpf Urine Mucus Rare H (None) /hpf 08/09/21 08/10/21 08/10/21 Range/Units 23:01 06:13 08:17 POC Glucose (mg/dL) 270 H 240 H 214 H (75-99) mg/dL Troponin I (0.000-0.034) ng/mL Urine Protein (Negative) Urine Glucose (UA) (Negative) Urine Ketones (Negative) Urine Blood (Negative) Ur Leukocyte Esterase (Negative) Urine RBC (0-5) /hpf Urine WBC (0-5) /hpf Urine Bacteria (None) /hpf Urine Mucus (None) /hpf Microbiology - Last 24 Hours (Table) 08/09/21 18:47 Urine Culture - Preliminary Urine,Voided Assessment and Plan Assessment: Right upper pneumonia most likely secondary to Covid -19 infection Increased inflammatory markers Elevated troponin to rule out cardiac causes Fall with head trauma Memory problems, possible early dementia Alzheimer dementia diabetes mellitus, mild. On diet control only.hemoglobin A1c was 6.6 percent on 2018, currently is on oral hypoglycemic medication but he could not remember the name as he states Hyperlipidemia Chronic kidney disease stage III History of coronary artery disease status post stent History of GERD Plan: Is a pleasant 76 years old male who presents with covid pneumonia and fall and dizziness with elevated troponin We will start vitamin C, vitamin D and zinc Infectious disease consult Cardiology consult Neuro check Follow-up echocardiogram, urine culture and physical therapy evaluation Labs and medication were reviewed.. Continue same treatment. Continue with symptomatic treatment. Resume home medication. Monitor lytes and vitals. DVT and GI prophylaxis. Further recommendations depends on the clinical course of the patient DVT prophylaxis: Subcutaneous heparin GI Prophylaxis: Pepcid PT/OT: Pending Prognosis is guarded
[2021-08-10 13:38] LABS: Glucose,Whole Blood 235 mg/dL (75-99)
[2021-08-10] MEDS: guaiFENesin-DM 100-10MG/5ML 10 ML CUP PO SCH (13:44)
[2021-08-10 16:58] LABS: Glucose,Whole Blood 238 mg/dL (75-99)
[2021-08-10 20:29] LABS: Glucose,Whole Blood 196 mg/dL (75-99)
[2021-08-10] MEDS: ACETAMINOPHEN TAB 325 MG TAB PO PRN (21:58)
[2021-08-11] MEDS: HEPARIN SODIUM,PORCINE/PF 5,000 UNIT/0.5 ML SYRINGE SQ SCH ×3 (01:05→16:51)
[2021-08-11] MEDS: guaiFENesin-DM 100-10MG/5ML 10 ML CUP PO SCH ×3 (01:18→12:57)
[2021-08-11 01:29] VITALS: RESP 18
[2021-08-11 04:10] LABS: Calcium 8.3 mg/dL (8.4-10.2); Magnesium 1.9 mg/dL (1.6-2.3); Potassium 4.4 mmol/L (3.5-5.1)
[2021-08-11 06:12] LABS: Glucose,Whole Blood 151 mg/dL (75-99)
[2021-08-11] MEDS: INSULIN ASPART (NovoLOG) 100 UNIT/ML VIAL SQ SCH ×3 (06:46→16:51)
[2021-08-11] MEDS: CHOLECALCIFEROL 25 MCG (1000 IU) TABLET PO SCH (09:21)
[2021-08-11] MEDS: ASCORBIC ACID 500 MG TAB PO SCH (09:21)
[2021-08-11] MEDS: ZINC SULFATE 220 MG CAP PO SCH (09:22)
[2021-08-11] MEDS: ACETAMINOPHEN TAB 325 MG TAB PO PRN (09:30)
[2021-08-11 11:15] VITALS: TEMP 97.9
[2021-08-11 11:53] LABS: Glucose,Whole Blood 197 mg/dL (75-99)
--- NOTE | 2021-08-11 12:51 | P.PN ---
Subjective This is a 76-year-old male with history of dyslipidemia, coronary artery disease status post stent placement done 20+ years ago [place] [facility]. 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 We are consulted for elevated troponin of 0.05, 0.05 and 0.03. Patient presented to Hospital complaining of fatigue tiredness shortness of breath and flulike illness that started around Tuesday of last week. His symptoms got worse to the ER and is being admitted he has been tested positive for Covid and is negative for influenza. EKG revealed sinus rhythm without acute ST-T wave changes. Echocardiogram revealed EF of 5560% mild mitral regurgitation, mild tricuspid regurgitation. Patient denies any chest pain, or shortness of breath. Vital signs are stable. GENERAL: Well-appearing, well-nourished and in no acute distress. NECK: Supple without JVD LUNGS: Respiration equal and unlabored. HEART: Regular rate and rhythm without murmurs, S1 and S2 heard. EXTREMITIES: Normal range of motion, no edema. ASSESSMENT Covid-19 infection Dyslipidemia Elevated troponin, not indicative of acute coronary syndrome likely due to covid-19 infectio n History of coronary artery disease status post previous stent placement, unknown details. PLAN Patient is stable to be discharged home from a cardiology perspective. Recommend outpatient stress testing. Patient to follow-up in the outpatient office with Dr. Carrasquillo Nurse Practitioner note has been reviewed, I agree with a documented findings and plan of care. Patient was seen and examined. Objective - Vital Signs Vital signs: Vital Signs Temp 97.9 F 08/11/21 08:00 Pulse 61 08/11/21 08:00 Resp 18 08/11/21 08:00 BP 144/68 08/11/21 08:00 Pulse Ox 95 08/11/21 08:00 Intake & Output 08/10/21 08/11/21 08/11/21 18:59 06:59 18:59 Intake Total 120 Output Total 350 Balance -350 120 Intake: Oral 120 Output: Urine 350 Other: # Voids 1 1 - Labs CBC & Chem 7: 08/10/21 10:37 08/11/21 03:28 Labs: Abnormal Lab Results - Last 24 Hours (Table) 08/10/21 08/10/21 08/10/21 Range/Units 13:35 16:45 20:29 Sodium (137-145) mmol/L BUN (9-20) mg/dL Creatinine (0.66-1.25) mg/dL Glucose (74-99) mg/dL POC Glucose (mg/dL) 235 H 238 H 196 H (75-99) mg/dL Calcium (8.4-10.2) mg/dL 08/11/21 08/11/21 08/11/21 Range/Units 03:28 06:11 11:40 Sodium 133 L (137-145) mmol/L BUN 31 H (9-20) mg/dL Creatinine 1.35 H (0.66-1.25) mg/dL Glucose 172 H (74-99) mg/dL POC Glucose (mg/dL) 151 H 197 H (75-99) mg/dL Calcium 8.3 L (8.4-10.2) mg/dL Microbiology - Last 24 Hours (Table) 08/09/21 18:47 Urine Culture - Final Urine,Voided
--- NOTE | 2021-08-11 13:05 | P.PN ---
Subjective Progress Note Date: 08/11/21 Principal diagnosis: Reason for follow-up: pneumonia HPI: Patient is a 76 year male, who is not vaccinated for covid presented to hospital for evaluation of increasing shortness of breath and cough along with body aches and this patient has been diagnosed with a covid 19 infection. On today's evaluation that is 08/11/2021, the patient remains to be afebrile, the patient is breathing comfortably on room air, and patient denies having any chest pain minimal cough but no sputum production, no abdominal pain or diarrhea Objective - Vital Signs Vital signs: Vital Signs Temp 97.9 F 08/11/21 08:00 Pulse 61 08/11/21 08:00 Resp 18 08/11/21 08:00 BP 144/68 08/11/21 08:00 Pulse Ox 95 08/11/21 08:00 Intake & Output 08/10/21 08/11/21 08/11/21 18:59 06:59 18:59 Intake Total 120 Output Total 350 Balance -350 120 Intake: Oral 120 Output: Urine 350 Other: # Voids 1 1 - Exam GENERAL DESCRIPTION:[ Patient is awake and alert in no distress] HEENT: [Oral mucosa is dry and no pharyngeal erythema] EYES : [No pallor or scleral icterus] RESPIRATORY SYSTEM: [Unlabored breathing decreased breath sounds at the base CARDIA VASCULAR SYSTEM: [S1-S2 regular rate and rhythm no murmur] GI: [Abdominal soft there's no tenderness no organomegaly] EXTREMITIES: [No edema feet] - Labs CBC & Chem 7: 08/10/21 10:37 08/11/21 03:28 Labs: Abnormal Lab Results - Last 24 Hours (Table) 08/10/21 08/10/21 08/10/21 Range/Units 13:35 16:45 20:29 Sodium (137-145) mmol/L BUN (9-20) mg/dL Creatinine (0.66-1.25) mg/dL Glucose (74-99) mg/dL POC Glucose (mg/dL) 235 H 238 H 196 H (75-99) mg/dL Calcium (8.4-10.2) mg/dL 08/11/21 08/11/21 08/11/21 Range/Units 03:28 06:11 11:40 Sodium 133 L (137-145) mmol/L BUN 31 H (9-20) mg/dL Creatinine 1.35 H (0.66-1.25) mg/dL Glucose 172 H (74-99) mg/dL POC Glucose (mg/dL) 151 H 197 H (75-99) mg/dL Calcium 8.3 L (8.4-10.2) mg/dL Microbiology - Last 24 Hours (Table) 08/09/21 18:47 Urine Culture - Final Urine,Voided Assessment and Plan Assessment: 1-patient presented to hospital with increasing shortness of breath and fever in this patient did have evidence of covid 19 pneumonia mild illness no hypoxemia patient did not qualify for steroids or redness. to continue with current supportive treatment with zinc multivitamin and close outpatient follow-up Time with Patient: Less than 30
--- NOTE | 2021-08-11 13:05 | P.PN ---
Subjective Progress Note Date: 08/10/21 Principal diagnosis: Reason for follow-up: pneumonia HPI: Patient is a 76 year male HPI: Patient is a 76 year male, who is not vaccinated for covid presented to hospital for evaluation of increasing shortness of breath and cough along with body aches and this patient has been diagnosed with a covid 19 infection. On today's evaluation that is 08/10/2021, the patient denies having any fever or chills, the patient is currently breathing comfortably on room air, and patient denies having any chest pain minimal cough production, no abdominal pain or diarrhea Objective - Vital Signs Vital signs: Vital Signs Temp 99.3 F 08/10/21 11:00 Pulse 63 08/10/21 11:00 Resp 18 08/10/21 11:00 BP 141/70 08/10/21 11:00 Pulse Ox 95 08/10/21 11:00 Intake & Output 08/09/21 08/10/21 08/10/21 18:59 06:59 18:59 Weight 52.163 kg 52.163 kg Other: # Voids 1 - Exam GENERAL DESCRIPTION:[ Patient is awake and alert in no distress] HEENT: [Oral mucosa is dry and no pharyngeal erythema] EYES : [No pallor or scleral icterus] RESPIRATORY SYSTEM: [Unlabored breathing decreased breath sounds at the base CARDIA VASCULAR SYSTEM: [S1-S2 regular rate and rhythm no murmur] GI: [Abdominal soft there's no tenderness no organomegaly] EXTREMITIES: [No edema feet] - Labs CBC & Chem 7: 08/10/21 10:37 08/11/21 03:28 Labs: Abnormal Lab Results - Last 24 Hours (Table) 08/09/21 08/09/21 08/09/21 Range/Units 18:33 18:47 23:01 RBC (4.30-5.90) m/uL Hgb (13.0-17.5) gm/dL Plt Count (150-450) k/uL Neutrophils # (1.3-7.7) k/uL Lymphocytes # (1.0-4.8) k/uL Sodium (137-145) mmol/L BUN (9-20) mg/dL Creatinine (0.66-1.25) mg/dL Glucose (74-99) mg/dL POC Glucose (mg/dL) 307 H 270 H (75-99) mg/dL Lactate Dehydrogenase (313-618) U/L C-Reactive Protein (<1.0) mg/dL Urine Protein 1+ H (Negative) Urine Glucose (UA) 4+ H (Negative) Urine Ketones 2+ H (Negative) Urine Blood Trace H (Negative) Ur Leukocyte Esterase Large H (Negative) Urine RBC 20 H (0-5) /hpf Urine WBC 27 H (0-5) /hpf Urine Bacteria Few H (None) /hpf Urine Mucus Rare H (None) /hpf 08/10/21 08/10/21 08/10/21 Range/Units 06:13 08:17 10:37 RBC (4.30-5.90) m/uL Hgb (13.0-17.5) gm/dL Plt Count (150-450) k/uL Neutrophils # (1.3-7.7) k/uL Lymphocytes # (1.0-4.8) k/uL Sodium 132 L (137-145) mmol/L BUN 32 H (9-20) mg/dL Creatinine 1.40 H (0.66-1.25) mg/dL Glucose 283 H (74-99) mg/dL POC Glucose (mg/dL) 240 H 214 H (75-99) mg/dL Lactate Dehydrogenase 918 H (313-618) U/L C-Reactive Protein 3.5 H (<1.0) mg/dL Urine Protein (Negative) Urine Glucose (UA) (Negative) Urine Ketones (Negative) Urine Blood (Negative) Ur Leukocyte Esterase (Negative) Urine RBC (0-5) /hpf Urine WBC (0-5) /hpf Urine Bacteria (None) /hpf Urine Mucus (None) /hpf 08/10/21 08/10/21 Range/Units 10:37 13:35 RBC 4.29 L (4.30-5.90) m/uL Hgb 12.8 L (13.0-17.5) gm/dL Plt Count 133 L (150-450) k/uL Neutrophils # 8.3 H (1.3-7.7) k/uL Lymphocytes # 0.7 L (1.0-4.8) k/uL Sodium (137-145) mmol/L BUN (9-20) mg/dL Creatinine (0.66-1.25) mg/dL Glucose (74-99) mg/dL POC Glucose (mg/dL) 235 H (75-99) mg/dL Lactate Dehydrogenase (313-618) U/L C-Reactive Protein (<1.0) mg/dL Urine Protein (Negative) Urine Glucose (UA) (Negative) Urine Ketones (Negative) Urine Blood (Negative) Ur Leukocyte Esterase (Negative) Urine RBC (0-5) /hpf Urine WBC (0-5) /hpf Urine Bacteria (None) /hpf Urine Mucus (None) /hpf Microbiology - Last 24 Hours (Table) 08/09/21 18:47 Urine Culture - Preliminary Urine,Voided Assessment and Plan Assessment: 1-patient presented to hospital with increasing shortness of breath and fever in this patient did have evidence of covid 19 pneumonia mild illness no hypoxemia patient to continue with current supportive treatment is endoscopic is no need for Remdisivir on steroids
[2021-08-11 14:19] VITALS: BP 145/83; PULSE 81
--- NOTE | 2021-08-13 09:22 | P.DS ---
Providers Date of admission: 08/09/21 09:41 Attending physician: Edison Sumner MD Consults: 08/09/21 10:00 Consult Physician Routine Consulting Provider: [facility] Consult Reason/Comments: elevated troponin Do you want consulting provider notified?: Yes 08/09/21 11:31 Consult Physician Urgent Consulting Provider: Bogdan Nunez Consult Reason/Comments: fever Do you want consulting provider notified?: Yes Primary care physician: [facility] Hospital Course: Diagnoses Right upper pneumonia most likely secondary to Covid -19 infection Increased inflammatory markers Elevated troponin to rule out cardiac causes Fall with head trauma Memory problems, possible early dementia Alzheimer dementia diabetes mellitus, mild. On diet control only.hemoglobin A1c was 6.6 percent on 2018, currently is on oral hypoglycemic medication but he could not remember the name as he states Hyperlipidemia Chronic kidney disease stage III History of coronary artery disease status post stent History of GERD Hospital course this is a pleasant 76 years old male with past medical history of Coronary Artery Disease status post stent, Diabetes Mellitus, GERD, Hyperlipidemia, his PCP is Dr. Aparicio at [facility] as he states. Patient states he presents because he had a fever at home and he was not eating much or drinking a lot over the last 2-3 days he feels generally weak and uncomfortable so he decided to come to emergency room. Chest x-ray: There is interval development of a focal area of interstitial and vague opacity in the right upper lobe suspicious for acute pneumonia. Patient found to be Covid positive. The patient was diagnosed with Covid pneumonia and he was treated with multiple vitamins, vitamin C, vitamin D and zinc. Also received gentle hydration. Patient initially treated with ceftriaxone for suspicion of UTI however culture was negative and patient remained asymptomatic so antibiotics were stopped. Patient has been evaluated and followed closely by infectious disease team. Patient remained stable and he was not hypoxic, no significant respiratory symptoms. On the day of discharge she denies dyspnea or chest pain. No change in Gen. bowel habits. His fever on admission have subsided. Patient was cleared for discharge by infectious disease team Real Estate Appraiser evaluated the patient for mildly elevated troponin secondary to Covid 19 infection with no evidence or indication of acute coronary artery disease. Patient remains asymptomatic and nursing unit clerk cleared her for discharge with recommendation for outpatient follow-up and stress test as an outpatient, he was informed agrees. Office will call for an appointment within 2 weeks. Problems and management plan were discussed with the patient and he verbalized understanding and acceptance Patient was found stable and can be discharged home In guarded prognosishowever he needs follow-up as an outpatient. Patient was instructed to follow up with PCP within one week and patient agrees Physical exam Gen: patient is a AAOx3, no distress CVS: S1-S2, RRR, no murmur Lungs: B/L CTA, no wheezing Abdomen: soft, no distention, no tenderness, positive bowel sounds Extremity: no leg edema or induration Time spent more than 35 minutes Patient Condition at Discharge: Stable Plan - Discharge Summary Discharge Rx Participant: No New Discharge Prescriptions: New Zinc Sulfate [Orazinc] 220 mg PO DAILY #30 cap guaiFENesin-DM 100-10MG/5ML [Robitussin DM] 10 ml PO Q6HR PRN #60 ml PRN Reason: Cough Albuterol Inhaler [Ventolin Hfa Inhaler] 2 puff INHALATION RT-QID PRN #8 gm PRN Reason: Shortness Of Breath Or Wheezing Acetaminophen Tab [Tylenol] 650 mg PO Q6HR PRN tab PRN Reason: Mild Pain Or Fever > 100.5 Ascorbic Acid [Vitamin C] 1,000 mg PO DAILY #60 tab Cholecalciferol [Vitamin D3 (25 Mcg = 1000 Iu)] 50 mcg PO DAILY #60 tablet Continue Rosuvastatin Calcium [Crestor] 20 mg PO DAILY Omeprazole 20 mg PO DAILY Alogliptin Benzoate [Alogliptin] 25 mg PO DAILY Discharge Medication List Alogliptin Benzoate [Alogliptin] 25 mg PO DAILY 08/09/21 [History] Omeprazole 20 mg PO DAILY 08/09/21 [History] Rosuvastatin Calcium [Crestor] 20 mg PO DAILY 08/09/21 [History] Acetaminophen Tab [Tylenol] 650 mg PO Q6HR PRN tab 08/11/21 [Rx] Albuterol Inhaler [Ventolin Hfa Inhaler] 2 puff INHALATION RT-QID PRN #8 gm 08/11/21 [Rx] Ascorbic Acid [Vitamin C] 1,000 mg PO DAILY #60 tab 08/11/21 [Rx] Cholecalciferol [Vitamin D3 (25 Mcg = 1000 Iu)] 50 mcg PO DAILY #60 tablet 08/11/21 [Rx] Zinc Sulfate [Orazinc] 220 mg PO DAILY #30 cap 08/11/21 [Rx] guaiFENesin-DM 100-10MG/5ML [Robitussin DM] 10 ml PO Q6HR PRN #60 ml 08/11/21 [Rx] Follow up Appointment(s)/Referral(s): Demar Carrasquillo MD [STAFF PHYSICIAN] - 2 Weeks (The office will call you with appointment date and time. ) [facility] [Primary Care Provider] - 1-2 days Patient Instructions/Handouts: Coronavirus Disease 2019 (COVID-19) Activity/Diet/Wound Care/Special Instructions: Heart healthy diet Activity is restricted till you see your doctor Discharge Disposition: HOME SELF-CARE
== END 2021-08-11 17:25 | disposition home or self-care (01) | DRG 177 ==
LOC: EC 07:59 → 3SCARD 09:41
PROVIDERS: ADMIT Internal Medicine; ATTEND Internal Medicine
DX: U07.1 COVID-19 (principal); J12.82 Pneumonia due to coronavirus disease 2019; N17.9 Acute kidney failure, unspecified; R79.89 Other specified abnormal findings of blood chemistry; I25.10 Atherosclerotic heart disease of native coronary artery without angina pectoris; D69.6 Thrombocytopenia, unspecified; S09.90XA Unspecified injury of head, initial encounter; I25.2 Old myocardial infarction; I08.1 Rheumatic disorders of both mitral and tricuspid valves; G30.9 Alzheimer's disease, unspecified; F02.80 Dementia in other diseases classified elsewhere, unspecified severity, without behavioral disturbance, psychotic disturbance, mood disturbance, and anxiety; D72.810 Lymphocytopenia; N18.30 Chronic kidney disease, stage 3 unspecified; E11.22 Type 2 diabetes mellitus with diabetic chronic kidney disease; E78.5 Hyperlipidemia, unspecified; K74.60 Unspecified cirrhosis of liver; W18.30XA Fall on same level, unspecified, initial encounter; Z79.899 Other long term (current) drug therapy; Z87.891 Personal history of nicotine dependence; Z95.5 Presence of coronary angioplasty implant and graft; Z90.49 Acquired absence of other specified parts of digestive tract; Z87.19 Personal history of other diseases of the digestive system
CPT/HCPCS: 36415; 70450; 71046; 80048; 80053; 81001; 83605; 83615; 83735; 84443; 84484; 85025; 85610; 85730; 86140; 87086; 87502; 87635; 93005; 93306; 94640; 96361; 96374; 99285

== ENCOUNTER 2021-08-17 18:00 | Observation (INO) | payer OTHER, MEDICARE ==
[2021-08-17] MEDS ORDERED: ONDANSETRON 4 MG/2 ML VIAL IVP STA (18:35)
[2021-08-17] MEDS ORDERED: SODIUM CHLORIDE 0.9% 500 ML 500 ML IV STA ×2 (18:40→21:27)
[2021-08-17 19:06] LABS: Basophils % (A) 0 %; Eosinophils # (A) 0.2 k/uL (0-0.7); Eosinophils % (A) 2 %; HCT 36.1 % (39.0-53.0); Lymphocytes # (A) 0.7 k/uL (1.0-4.8); Lymphocytes % (A) 7 %; MCH 30.4 pg (25.0-35.0); MCHC 33.3 g/dL (31.0-37.0); MCV 91.3 fL (80.0-100.0); Mean Platelet Volume 7.1; Monocytes # (A) 0.6 k/uL (0-1.0); Monocytes % (A) 6 %; Neutrophils % (A) 84 %; Platelet Count 454 k/uL (150-450); RBC 3.96 m/uL (4.30-5.90); RDW 12.7 % (11.5-15.5); WBC 10.7 k/uL (3.8-10.6)
[2021-08-17 19:13] LABS: INR 0.9 (<1.2); Partial Thromboplastin Time 23.2 sec (22.0-30.0); Prothrombin Time 10.3 sec (9.0-12.0)
[2021-08-17 19:18] LABS: Albumin 3.3 g/dL (3.5-5.0); Calcium 8.9 mg/dL (8.4-10.2); Potassium 4.1 mmol/L (3.5-5.1); Total Bilirubin 1.2 mg/dL (0.2-1.3); Total Protein 6.2 g/dL (6.3-8.2)
--- NOTE | 2021-08-17 19:41 | XR ---
EXAMINATION TYPE: XR chest 2V DATE OF EXAM: 08/17/2021 7:15 PM COMPARISON:Multiple radiographs, with the most recent on 08/09/2021 TECHNIQUE: Frontal and lateral views of the chest. CLINICAL INDICATION:Male, 76 years old with history of Weakness; FINDINGS: Lungs/Pleura: Multifocal airspace opacities seen within the right upper chest and left mid chest and projecting over the heart are increased in density and today's exam. No evidence of pneumothorax or p leural effusion. Pulmonary vascularity: Unremarkable. Heart/mediastinum: Cardiomediastinal silhouette is unremarkable. Musculoskeletal:No acute osseous pathology. IMPRESSION: Interval worsening of multifocal airspace disease.
[2021-08-17 21:17] LABS: Appearance,Urine Clear (Clear); Bacteria,Urine Rare /hpf; Bilirubin,Urine Negative (Negative); Blood,Urine Trace (Negative); Budding Yeast,Urine Occasional /hpf; Color,Urine Yellow; Glucose,Urine (UA) 4+ (Negative); Hyaline Casts,Urine 1 /lpf (0-2); Leukocyte Esterase,Urine Large (Negative); Mucus,Urine Rare /hpf; Nitrite,Urine Negative (Negative); Protein,Urine 2+ (Negative); RBC,Urine 11 /hpf (0-5); Specific Gravity,Urine 1.026 (1.001-1.035); Squamous Epithelial Cell,Urine 1 /hpf (0-4); WBC,Urine 23 /hpf (0-5)
[2021-08-17 21:22] LABS: Ketones,Urine 3+ (Negative)
--- NOTE | 2021-08-17 22:34 | ED ---
General Adult HPI - General Chief complaint: Weakness Stated complaint: nausea, weakness Time Seen by Provider: 08/17/21 18:24 Source: patient, EMS, RN notes reviewed Mode of arrival: EMS Limitations: no limitations - History of Present Illness Initial comments: 76-year-old male presents to the emergency department via EMS from home with multiple complaints related to current COVID-19 diagnosis. Patient states he has had a poor appetite since being released from an inpatient stay. States he is constantly nauseous and has no appetite. Reports ongoing cough with occasional episodes with shortness of breath. Complains of generalized weakness and falls with no injury at home. States his family has been checking in on him frequently and he has been taking medications as prescribed. Reports treating fever and body aches with Tylenol. States he thinks he got the monoclonal antibody infusion during his previous hospital admission which was unrelated to Covid. Patient did arrive on 5 L of oxygen via EMS. Denies dizziness, lightheadedness, chest pain, abdominal pain, constipation, diarrhea, dysuria, or hematuria. - Related Data Home Medications Medication Instructions Recorded Confirmed Alogliptin Benzoate [Alogliptin] 25 mg PO DAILY 08/09/21 08/17/21 Omeprazole 20 mg PO DAILY 08/09/21 08/17/21 Rosuvastatin Calcium [Crestor] 20 mg PO DAILY 08/09/21 08/17/21 Previous Rx's Medication Instructions Recorded Acetaminophen Tab [Tylenol] 650 mg PO Q6HR PRN tab 08/11/21 Albuterol Inhaler [Ventolin Hfa 2 puff INHALATION RT-QID PRN #8 gm 08/11/21 Inhaler] Ascorbic Acid [Vitamin C] 1,000 mg PO DAILY #60 tab 08/11/21 Cholecalciferol [Vitamin D3 (25 50 mcg PO DAILY #60 tablet 08/11/21 Mcg = 1000 Iu)] Zinc Sulfate [Orazinc] 220 mg PO DAILY #30 cap 08/11/21 guaiFENesin-DM 100-10MG/5ML 10 ml PO Q6HR PRN #60 ml 08/11/21 [Robitussin DM] Allergies Allergy/AdvReac Type Severity Reaction Status Date / Time No Known Allergies Allergy Verified 08/17/21 18:41 Review of Systems ROS Statement: Those systems with pertinent positive or pertinent negative responses have been documented in the HPI. ROS Other: All systems not noted in ROS Statement are negative. Past Medical History Past Medical History: Coronary Artery Disease (CAD), Diabetes Mellitus, GERD/Reflux, Hyperlipidemia, Myocardial Infarction (CT) Last Myocardial Infarction Date:: 2007 History of Any Multi-Drug Resistant Organisms: None Reported Past Surgical History: Cholecystectomy, Heart Catheterization With Stent, Hernia Repair Past Anesthesia/Blood Transfusion Reactions: No Reported Reaction Date of Last Stent Placement:: 2007 Past Psychological History: No Psychological Hx Reported Smoking Status: Former smoker Past Alcohol Use History: Occasional Past Drug Use History: None Reported - Past Family History Mother Family Medical History: No Reported History Additional Family Medical History / Comment(s): " from old age" Father Family Medical History: CVA/TIA Additional Family Medical History / Comment(s): father from stroke when pt was 7 years old General Exam Limitations: no limitations General appearance: alert, in no apparent distress (This is a well-developed slender male who presents to the emergency department in no acute distress. Initial temperature 98.5, pulse 75, respirations 16, blood pressure 183/82, and pulse ox 97% on 5 L.) ENT exam: Present: normal exam, mucous membranes dry Respiratory exam: Present: normal lung sounds bilaterally, other (Patient does have a strong congested cough). Absent: respiratory distress, wheezes, rales, rhonchi, stridor, chest wall tenderness Cardiovascular Exam: Present: regular rate, normal rhythm, normal heart sounds. Absent: systolic murmur, diastolic murmur, rubs, gallop, clicks GI/Abdominal exam: Present: soft, normal bowel sounds. Absent: distended, tenderness, guarding, rebound, rigid Back exam: Absent: CVA tenderness (R), CVA tenderness (L) Neurological exam: Present: alert, oriented X3 Psychiatric exam: Present: flat affect Skin exam: Present: warm, dry, intact Course Vital Signs 08/17/21 08/17/21 08/17/21 18:05 18:28 22:41 Temperature 98.5 F 98.1 F Pulse Rate 75 65 Respiratory 16 20 16 Rate Blood Pressure 183/82 183/86 O2 Sat by Pulse 97 95 Oximetry Medical Decision Making - Medical Decision Making 76-year-old male with past medical history of type 2 diabetes, coronary artery, and a recent diagnosis of COVID-19 presents to the emergency department for evaluation. Upon exam, patient is in no acute distress but appears fatigued. Patient arrived on oxygen at 5 L via nasal cannula and was weaned down to 2 L. He reports persistent worsening cough and shortness of breath with activity, though appears unlabored at rest. Endorses ongoing nausea and poor oral intake. No injuries sustained from falls. Patient has no focal neurological deficits. Laboratory studies show evidence of dehydration, UTI with presence of yeast, and elevated liver enzymes. EKG shows normal sinus rhythm with no ST segment changes or ectopy. Chest x-ray shows worsening multifocal airspace disease. Patient was given a total of 1 L of IV fluids and anti-emetics, though continues to feel poorly. Due to his increased weakness and concern for safety at home related to multiple falls, along with his worsening x-ray findings and current diagnosis of COVID-19, admission to the hospital was discussed with patient and he is agreeable. I did speak with ALDEN Rojas who is willing to accept this admission on behalf of [facility]. Patient will be gently hydrated, urinary findings addressed, and decadron and albuterol given. This patient's care was discussed with my attending, Dr. Patrick. - Lab Data Result diagrams: 08/17/21 18:52 08/17/21 18:52 Lab Results 08/17/21 08/17/21 08/17/21 Range/Units 18:52 18:52 18:52 WBC 10.7 H (3.8-10.6) k/uL RBC 3.96 L (4.30-5.90) m/uL Hgb 12.0 L (13.0-17.5) gm/dL Hct 36.1 L (39.0-53.0) % MCV 91.3 (80.0-100.0) fL MCH 30.4 (25.0-35.0) pg MCHC 33.3 (31.0-37.0) g/dL RDW 12.7 (11.5-15.5) % Plt Count 454 H D (150-450) k/uL MPV 7.1 Neutrophils % 84 % Lymphocytes % 7 % Monocytes % 6 % Eosinophils % 2 % Basophils % 0 % Neutrophils # 9.0 H (1.3-7.7) k/uL Lymphocytes # 0.7 L (1.0-4.8) k/uL Monocytes # 0.6 (0-1.0) k/uL Eosinophils # 0.2 (0-0.7) k/uL Basophils # 0.0 (0-0.2) k/uL PT 10.3 (9.0-12.0) sec INR 0.9 (<1.2) APTT 23.2 (22.0-30.0) sec Sodium (137-145) mmol/L Potassium (3.5-5.1) mmol/L Chloride (98-107) mmol/L Carbon Dioxide (22-30) mmol/L Anion Gap mmol/L BUN (9-20) mg/dL Creatinine (0.66-1.25) mg/dL Est GFR (CKD-EPI)AfAm (>60 ml/min/1.73 sqM) Est GFR (CKD-EPI)NonAf (>60 ml/min/1.73 sqM) Glucose (74-99) mg/dL Plasma Lactic Acid Mason (0.7-2.0) mmol/L Calcium (8.4-10.2) mg/dL Magnesium (1.6-2.3) mg/dL Total Bilirubin (0.2-1.3) mg/dL AST (17-59) U/L ALT (4-49) U/L Alkaline Phosphatase (38-126) U/L Troponin I (0.000-0.034) ng/mL Total Protein (6.3-8.2) g/dL Albumin (3.5-5.0) g/dL Urine Color Yellow Urine Appearance Clear (Clear) Urine pH 6.0 (5.0-8.0) Ur Specific [place] 1.026 (1.001-1.035) Urine Protein 2+ H (Negative) Urine Glucose (UA) 4+ H (Negative) Urine Ketones 3+ H (Negative) Urine Blood Trace H (Negative) Urine Nitrite Negative (Negative) Urine Bilirubin Negative (Negative) Urine Urobilinogen 2.0 (<2.0) mg/dL Ur Leukocyte Esterase Large H (Negative) Urine RBC 11 H (0-5) /hpf Urine WBC 23 H (0-5) /hpf Ur Squamous Epith Cells 1 (0-4) /hpf Urine Bacteria Rare H (None) /hpf Hyaline Casts 1 (0-2) /lpf Urine Mucus Rare H (None) /hpf Urine Yeast (Budding) Occasional H (None) /hpf 08/17/21 08/17/21 08/17/21 Range/Units 18:52 18:52 18:52 WBC (3.8-10.6) k/uL RBC (4.30-5.90) m/uL Hgb (13.0-17.5) gm/dL Hct (39.0-53.0) % MCV (80.0-100.0) fL MCH (25.0-35.0) pg MCHC (31.0-37.0) g/dL RDW (11.5-15.5) % Plt Count (150-450) k/uL MPV Neutrophils % % Lymphocytes % % Monocytes % % Eosinophils % % Basophils % % Neutrophils # (1.3-7.7) k/uL Lymphocytes # (1.0-4.8) k/uL Monocytes # (0-1.0) k/uL Eosinophils # (0-0.7) k/uL Basophils # (0-0.2) k/uL PT (9.0-12.0) sec INR (<1.2) APTT (22.0-30.0) sec Sodium 136 L (137-145) mmol/L Potassium 4.1 (3.5-5.1) mmol/L Chloride 100 (98-107) mmol/L Carbon Dioxide 20 L (22-30) mmol/L Anion Gap 16 mmol/L BUN 23 H (9-20) mg/dL Creatinine 1.13 (0.66-1.25) mg/dL Est GFR (CKD-EPI)AfAm 74 (>60 ml/min/1.73 sqM) Est GFR (CKD-EPI)NonAf 64 (>60 ml/min/1.73 sqM) Glucose 200 H (74-99) mg/dL Plasma Lactic Acid Mason 1.6 (0.7-2.0) mmol/L Calcium 8.9 (8.4-10.2) mg/dL Magnesium 2.0 (1.6-2.3) mg/dL Total Bilirubin 1.2 (0.2-1.3) mg/dL AST 367 H (17-59) U/L ALT 284 H (4-49) U/L Alkaline Phosphatase 123 (38-126) U/L Troponin I 0.029 (0.000-0.034) ng/mL Total Protein 6.2 L (6.3-8.2) g/dL Albumin 3.3 L (3.5-5.0) g/dL Urine Color Urine Appearance (Clear) Urine pH (5.0-8.0) Ur Specific [place] (1.001-1.035) Urine Protein (Negative) Urine Glucose (UA) (Negative) Urine Ketones (Negative) Urine Blood (Negative) Urine Nitrite (Negative) Urine Bilirubin (Negative) Urine Urobilinogen (<2.0) mg/dL Ur Leukocyte Esterase (Negative) Urine RBC (0-5) /hpf Urine WBC (0-5) /hpf Ur Squamous Epith Cells (0-4) /hpf Urine Bacteria (None) /hpf Hyaline Casts (0-2) /lpf Urine Mucus (None) /hpf Urine Yeast (Budding) (None) /hpf - EKG Data EKG shows normal: sinus rhythm Rate: normal EKG Comments: EKG was obtained at 1907 showing normal sinus rhythm with prolonged QT. Ventri cular rate 68, VT interval 160, QRS duration 100, QT/QTc 484/514. Interpretation abnormal ECG. - Radiology Data Radiology results: report reviewed, image reviewed Two-view chest x-ray was obtained. Report was reviewed in its entirety. Impression per Dr. Hunter is interval worsening of multifocal airspace disease. Disposition Clinical Impression: COVID-19, Weakness, Falls, Dehydration, UTI (urinary tract infection), Elevated liver enzymes Disposition: ADMITTED IP TO THIS [facility] Condition: Serious Decision Date: 08/17/21 Decision Time: 23:34
[2021-08-17] MEDS ORDERED: TRIMETHOBENZAMIDE 100 MG/ML 2 ML VIAL IM STA (23:20)
[2021-08-17] MEDS ORDERED: IBUPROFEN 400 MG TAB PO PRN (23:23)
[2021-08-17] MEDS ORDERED: NALOXONE 0.4 MG/ML 1 ML VIAL IV PRN (23:23)
[2021-08-17] MEDS ORDERED: ONDANSETRON 4 MG/2 ML VIAL IVP PRN (23:23)
[2021-08-17] MEDS ORDERED: traMADol 50 MG TAB PO PRN (23:23)
[2021-08-17] MEDS ORDERED: DEXAMETHASONE SOD PHOSPHATE 10 MG/ML 1 ML VIAL IVP STA (23:30)
[2021-08-17] MEDS ORDERED: cefTRIAXone IN SWFI 1,000 MG/10 ML SYRINGE IVP STA (23:30)
[2021-08-17] MEDS ORDERED: ALBUTEROL HFA INHALER INHALATION PRN (23:32)
[2021-08-18] MEDS: SODIUM CHLORIDE 0.9% 1,000 ML IV SCH ×4 (00:28→23:09)
[2021-08-18 03:33] LABS: Albumin 2.9 g/dL (3.5-5.0); Calcium 8.4 mg/dL (8.4-10.2); Total Bilirubin 0.9 mg/dL (0.2-1.3); Total Protein 5.7 g/dL (6.3-8.2)
[2021-08-18 03:43] LABS: Basophils % (A) 0 %; Eosinophils # (A) 0.1 k/uL (0-0.7); Eosinophils % (A) 1 %; HCT 34.5 % (39.0-53.0); HGB 11.1 gm/dL (13.0-17.5); Lymphocytes # (A) 0.4 k/uL (1.0-4.8); Lymphocytes % (A) 4 %; MCHC 32.2 g/dL (31.0-37.0); MCV 92.9 fL (80.0-100.0); Mean Platelet Volume 7.2; Monocytes # (A) 0.3 k/uL (0-1.0); Monocytes % (A) 3 %; Neutrophils # (A) 8.3 k/uL (1.3-7.7); Neutrophils % (A) 90 %; Platelet Count 430 k/uL (150-450); RBC 3.71 m/uL (4.30-5.90); RDW 13.1 % (11.5-15.5); WBC 9.2 k/uL (3.8-10.6)
[2021-08-18] MEDS ORDERED: PANTOPRAZOLE 40 MG TABLET PO SCH (07:30)
[2021-08-18] MEDS: ATORVASTATIN 40 MG TAB PO SCH (08:08)
[2021-08-18] MEDS: LINAGLIPTIN 5 MG TABLET PO SCH (08:09)
[2021-08-18 08:11] LABS: Glucose,Whole Blood 291 mg/dL (75-99)
[2021-08-18] MEDS ORDERED: ACETAMINOPHEN TAB 325 MG TAB PO PRN (08:53)
[2021-08-18] MEDS ORDERED: guaiFENesin-DM 100-10MG/5ML 10 ML CUP PO PRN (08:53)
[2021-08-18] MEDS: CHOLECALCIFEROL 25 MCG (1000 IU) TABLET PO SCH (09:09)
[2021-08-18] MEDS: ZINC SULFATE 220 MG CAP PO SCH (09:09)
[2021-08-18] MEDS: ASCORBIC ACID 500 MG TAB PO SCH (09:10)
--- NOTE | 2021-08-18 12:12 | P.HPIM ---
History of Present Illness Patient is a 81-year-old male was recently discharged from the hospital after he was treated for COVID-19 infection at the time patient apparently had GI symptoms presently denied any shortness of breath except for mild cough. Patie nt was having nausea vomiting multiple episodes at home unable to eat because of which patient came back to the hospital denied any significant abdominal pain patient had a bowel movement yesterday which was normal. Patient is presently not requiring any oxygen. Patient denied any chest pain doesn't have any fever chills. Patient is able to tolerate breakfast well today. REVIEW OF SYSTEMS: CONSTITUTIONAL: No fever, no malaise, no fatigue. HEENT: No recent visual problems or hearing problems. Denied any sore throat. CARDIOVASCULAR: No chest pain, orthopnea, PND, no palpitations, no syncope. PULMONARY: No shortness of breath, no cough, no hemoptysis. GASTROINTESTINAL: As mentioned in HPI NEUROLOGICAL: No headaches, no weakness, no numbness. HEMATOLOGICAL: Denies any bleeding or petechiae. GENITOURINARY: Denies any burning micturition, frequency, or urgency. MUSCULOSKELETAL/RHEUMATOLOGICAL: Denies any joint pain, swelling, or any muscle pain. ENDOCRINE: Denies any polyuria or polydipsia. The rest of the 14-point review of systems is negative. PHYSICAL EXAMINATION: GENERAL: The patient is alert and oriented x3, not in any acute distress. Well developed, well nourished. HEENT: Pupils are round and equally reacting to light. EOMI. No scleral icterus. No conjunctival pallor. Normocephalic, atraumatic. No pharyngeal erythema. No thyromegaly. CARDIOVASCULAR: S1 and S2 present. No murmurs, rubs, or gallops. PULMONARY: Chest is clear to auscultation, no wheezing or crackles. ABDOMEN: Soft, nontender, nondistended, normoactive bowel sounds. No palpable organomegaly. MUSCULOSKELETAL: No joint swelling or deformity. EXTREMITIES: No cyanosis, clubbing, or pedal edema. NEUROLOGICAL: Gross neurological examination did not reveal any focal deficits. SKIN: No rashes. Assessment and plan -Nausea vomiting abdominal discomfort: Secondary to COVID-19 infection, patient will be started on IV fluids, Protonix the patient hasn't very congruent will be discharged tomorrow patient is able to tolerate soft diet well today. -Transaminitis: Secondary to COVID-19 we'll repeat liver enzymes again we'll also obtain a hepatitis OF THE ABDOMEN -Type 2 diabetes mellitus diet-controlled Last hemoglobin A1c 6.6 -Hypervolemic hyponatremia: Patient will be started and continued on IV fluids -Hyperlipidemia -Coronary artery disease with stents in the past -Gastric is feeling reflux disease -Mild acute renal failure improved with IV fluids secondary to prerenal azotemia from nausea vomiting diarrhea DVT prophylaxis: Lovenox Past Medical History Past Medical History: Coronary Artery Disease (CAD), Diabetes Mellitus, Eye Di sorder, GERD/Reflux, Hearing Disorder / Deafness, Hyperlipidemia, Myocardial Infarction (NH), Osteoarthritis (OA), Prostate Disorder, Renal Disease Additional Past Medical History / Comment(s): Pt recently hospitalized at [facility] on 08/09/21 with covid pneumonia R upper lobe, FALLS, NIDDM type II, CKD stage III, bronchitis, bilateral tinnitis, bilateral glaucoma. Last Myocardial Infarction Date:: 2007 History of Any Multi-Drug Resistant Organisms: None Reported Past Surgical History: Cholecystectomy, Heart Catheterization With Stent, Hernia Repair Additional Past Surgical History / Comment(s): Bilateral inguinal hernia repairs. Past Anesthesia/Blood Transfusion Reactions: No Reported Reaction Date of Last Stent Placement:: 2007 Smoking Status: Former smoker - Past Family History Mother Family Medical History: No Reported History Additional Family Medical History / Comment(s): " from old age" Father Family Medical History: CVA/TIA Additional Family Medical History / Comment(s): father from stroke when pt was 7 years old Medications and Allergies Home Medications Medication Instructions Recorded Confirmed Type Alogliptin Benzoate [Alogliptin] 25 mg PO DAILY 08/09/21 08/17/21 History Omeprazole 20 mg PO DAILY 08/09/21 08/17/21 History Rosuvastatin Calcium [Crestor] 20 mg PO DAILY 08/09/21 08/17/21 History Acetaminophen Tab [Tylenol] 650 mg PO Q6HR PRN tab 08/11/21 08/17/21 Rx Albuterol Inhaler [Ventolin Hfa 2 puff INHALATION RT-QID PRN #8 gm 08/11/21 08/17/21 Rx Inhaler] Ascorbic Acid [Vitamin C] 1,000 mg PO DAILY #60 tab 08/11/21 08/17/21 Rx Cholecalciferol [Vitamin D3 (25 50 mcg PO DAILY #60 tablet 08/11/21 08/17/21 Rx Mcg = 1000 Iu)] Zinc Sulfate [Orazinc] 220 mg PO DAILY #30 cap 08/11/21 08/17/21 Rx guaiFENesin-DM 100-10MG/5ML 10 ml PO Q6HR PRN #60 ml 08/11/21 08/17/21 Rx [Robitussin DM] Allergies Allergy/AdvReac Type Severity Reaction Status Date / Time No Known Allergies Allergy Verified 08/17/21 18:41 Physical Exam Vitals: Vital Signs Temp Pulse Pulse Resp BP BP Pulse Ox 08/18/21 09:49 97.7 F 88 16 160/89 95 08/18/21 07:23 97.3 F L 67 18 175/88 94 L 08/18/21 03:00 98.0 F 67 18 175/86 94 L 08/17/21 22:41 98.1 F 65 16 183/86 95 08/17/21 18:28 20 08/17/21 18:05 98.5 F 75 16 183/82 97 Intake and Output 08/17/21 08/18/21 08/18/21 22:59 06:59 14:59 Other: # Voids 1 # Bowel Movements 1 Weight 68.039 kg 68.039 kg Results CBC & Chem 7: 08/18/21 02:44 08/18/21 02:44 Labs: Abnormal Lab Results - Last 24 Hours (Table) 08/17/21 08/17/21 08/17/21 Range/Units 18:52 18:52 18:52 WBC 10.7 H (3.8-10.6) k/uL RBC 3.96 L (4.30-5.90) m/uL Hgb 12.0 L (13.0-17.5) gm/dL Hct 36.1 L (39.0-53.0) % Plt Count 454 H D (150-450) k/uL Neutrophils # 9.0 H (1.3-7.7) k/uL Lymphocytes # 0.7 L (1.0-4.8) k/uL Sodium 136 L (137-145) mmol/L Carbon Dioxide 20 L (22-30) mmol/L BUN 23 H (9-20) mg/dL Glucose 200 H (74-99) mg/dL POC Glucose (mg/dL) (75-99) mg/dL AST 367 H (17-59) U/L ALT 284 H (4-49) U/L Total Protein 6.2 L (6.3-8.2) g/dL Albumin 3.3 L (3.5-5.0) g/dL Urine Protein 2+ H (Negative) Urine Glucose (UA) 4+ H (Negative) Urine Ketones 3+ H (Negative) Urine Blood Trace H (Negative) Ur Leukocyte Esterase Large H (Negative) Urine RBC 11 H (0-5) /hpf Urine WBC 23 H (0-5) /hpf Urine Bacteria Rare H (None) /hpf Urine Mucus Rare H (None) /hpf Urine Yeast (Budding) Occasional H (None) /hpf Coronavirus (PCR) (Not Detectd) 08/18/21 08/18/21 08/18/21 Range/Units 00:04 02:44 02:44 WBC (3.8-10.6) k/uL RBC 3.71 L (4.30-5.90) m/uL Hgb 11.1 L (13.0-17.5) gm/dL Hct 34.5 L (39.0-53.0) % Plt Count (150-450) k/uL Neutrophils # 8.3 H (1.3-7.7) k/uL Lymphocytes # 0.4 L (1.0-4.8) k/uL Sodium 134 L (137-145) mmol/L Carbon Dioxide 18 L (22-30) mmol/L BUN 23 H (9-20) mg/dL Glucose 221 H (74-99) mg/dL POC Glucose (mg/dL) (75-99) mg/dL AST 437 H (17-59) U/L ALT 340 H (4-49) U/L Total Protein 5.7 L (6.3-8.2) g/dL Albumin 2.9 L (3.5-5.0) g/dL Urine Protein (Negative) Urine Glucose (UA) (Negative) Urine Ketones (Negative) Urine Blood (Negative) Ur Leukocyte Esterase (Negative) Urine RBC (0-5) /hpf Urine WBC (0-5) /hpf Urine Bacteria (None) /hpf Urine Mucus (None) /hpf Urine Yeast (Budding) (None) /hpf Coronavirus (PCR) Detected A (Not Detectd) 08/18/21 Range/Units 08:09 WBC (3.8-10.6) k/uL RBC (4.30-5.90) m/uL Hgb (13.0-17.5) gm/dL Hct (39.0-53.0) % Plt Count (150-450) k/uL Neutrophils # (1.3-7.7) k/uL Lymphocytes # (1.0-4.8) k/uL Sodium (137-145) mmol/L Carbon Dioxide (22-30) mmol/L BUN (9-20) mg/dL Glucose (74-99) mg/dL POC Glucose (mg/dL) 291 H (75-99) mg/dL AST (17-59) U/L ALT (4-49) U/L Total Protein (6.3-8.2) g/dL Albumin (3.5-5.0) g/dL Urine Protein (Negative) Urine Glucose (UA) (Negative) Urine Ketones (Negative) Urine Blood (Negative) Ur Leukocyte Esterase (Negative) Urine RBC (0-5) /hpf Urine WBC (0-5) /hpf Urine Bacteria (None) /hpf Urine Mucus (None) /hpf Urine Yeast (Budding) (None) /hpf Coronavirus (PCR) (Not Detectd) Microbiology - Last 24 Hours (Table) 08/17/21 18:52 Urine Culture - Preliminary Urine,Voided Thrombosis Risk Factor Assmnt - Choose All That Apply Any of the Below Risk Factors Present?: Yes Each Factor Represents 1 point: Serious lung disease incl. pneumonia (< 1month) Other Risk Factors: Yes Each Risk Factor Represents 2 Points: Age 61-74 years Other congenital or acquired thrombophilia - If yes, enter type in comment: No Thrombosis Risk Factor Assessment Total Risk Factor Score: 3 Thrombosis Risk Factor Assessment Level: Moderate Risk
[2021-08-18 12:45] LABS: Glucose,Whole Blood 306 mg/dL (75-99)
[2021-08-18 17:50] LABS: Glucose,Whole Blood 354 mg/dL (75-99)
[2021-08-18 21:56] LABS: Glucose,Whole Blood 382 mg/dL (75-99)
[2021-08-18] MEDS: PANTOPRAZOLE 40 MG/10 ML VIAL IVP SCH (22:06)
[2021-08-18] MEDS: INSULIN ASPART (NovoLOG) 100 UNIT/ML VIAL SQ SCH (22:06)
[2021-08-19 01:24] VITALS: RESP 16
[2021-08-19] MEDS: SODIUM CHLORIDE 0.9% 1,000 ML IV SCH (06:08)
[2021-08-19 07:24] LABS: Glucose,Whole Blood 376 mg/dL (75-99)
[2021-08-19 08:04] VITALS: BP 183/94; PULSE 71; TEMP 97.7
[2021-08-19] MEDS: CHOLECALCIFEROL 25 MCG (1000 IU) TABLET PO SCH (08:34)
[2021-08-19] MEDS: ASCORBIC ACID 500 MG TAB PO SCH (08:34)
[2021-08-19] MEDS: PANTOPRAZOLE 40 MG/10 ML VIAL IVP SCH (08:34)
[2021-08-19] MEDS: INSULIN ASPART (NovoLOG) 100 UNIT/ML VIAL SQ SCH (08:34)
[2021-08-19] MEDS: ATORVASTATIN 40 MG TAB PO SCH (08:35)
[2021-08-19] MEDS: ZINC SULFATE 220 MG CAP PO SCH (08:35)
[2021-08-19] MEDS: LINAGLIPTIN 5 MG TABLET PO SCH (08:35)
[2021-08-19] MEDS ORDERED: FLUCONAZOLE 100 MG TAB PO ONE (08:43)
[2021-08-19] MEDS ORDERED: ENOXAPARIN 40 MG/0.4 ML SYRINGE SQ SCH (09:00)
[2021-08-19 12:00] VITALS: BMI 22.1
--- NOTE | 2021-08-24 09:59 | P.DS ---
Providers Date of admission: 08/17/21 22:43 Expected date of discharge: 08/19/21 Attending physician: Jhonatan Sánchez Primary care physician: [facility] Clinic Assessment: Final diagnosis -Nausea vomiting abdominal discomfort: Secondary to COVID-19 infection -Transaminitis: Secondary to COVID-19 -Type 2 diabetes mellitus diet-controlled Last hemoglobin A1c 6.6, now is 9.6 -Hypervolemic hyponatremia -Hyperlipidemia -Coronary artery disease with stents in the past -Gastroesophageal reflux disease -Mild acute renal failure improved with IV fluids secondary to prerenal azotemia from nausea vomiting diarrhea -DVT prophylaxis Discharge disposition Patient is being discharged in a stable condition with guarded prognosis to home. Patient will follow-up with the [facility] in the outpatient setting upon discharge. Patient is to continue with that form and 500 mg twice daily and recommend outpatient follow-up with primary care provider to discuss further diabetic agents and possible insulin. Total time taken is greater than 35 mi nutes. Hospital course This is a 81-year-old male who was recently discharged from the hospital after being treated for COVID-19 and had worsening GI symptoms along with a mild cough and denied any further shortness of breath. Patient having extreme nausea and vomiting multiple times and becoming dehydrated. Patient was admitted for observation and hydration. Patient symptoms improved and tolerating diet and requesting to be discharged. Patient's blood sugars are elevated and this was discussed in detail with the patient and patient is reluctant to continue with insulin at this time and states he takes a medication that he has been taking for many years although does not know the name of and has been working fine. Hemoglobin A1c was found to be 9.6 and sugars are uncontrolled during hospitalization. Patient's liver functions also elevated which may be a component of COVID-19 and prescription was provided to follow-up with repeat labs in the next few days and close monitoring with his provider. Currently no reports of chest pain, shortness of breath, or palpitations. Patient is afebrile. No reports of nausea or vomiting and patient is tolerating diet. Patient will be discharged home today. Guarded prognosis. PHYSICAL EXAMINATION: GENERAL: The patient is alert and oriented x3, not in any acute distress. Well developed, well nourished. HEENT: Pupils are round and equally reacting to light. EOMI. No scleral icterus. No conjunctival pallor. Normocephalic, atraumatic. No pharyngeal erythema. No thyromegaly. CARDIOVASCULAR: S1 and S2 present. No murmurs, rubs, or gallops. PULMONARY: Chest is clear to auscultation, no wheezing or crackles. ABDOMEN: Soft, nontender, nondistended, normoactive bowel sounds. No palpable organomegaly. MUSCULOSKELETAL: No joint swelling or deformity. EXTREMITIES: No cyanosis, clubbing, or pedal edema. NEUROLOGICAL: Gross neurological examination did not reveal any focal deficits. SKIN: No rashes. Please refer to medication reconciliation sheet for a list of medications. Patient Condition at Discharge: Stable Plan - Discharge Summary Discharge Rx Participant: No New Discharge Prescriptions: New metFORMIN HCL 500 mg PO BID 30 Days #60 tablet Pantoprazole [Protonix] 40 mg PO DAILY #30 tab Continue Zinc Sulfate [Orazinc] 220 mg PO DAILY #30 cap guaiFENesin-DM 100-10MG/5ML [Robitussin DM] 10 ml PO Q6HR PRN #60 ml PRN Reason: Cough Albuterol Inhaler [Ventolin Hfa Inhaler] 2 puff INHALATION RT-QID PRN #8 gm PRN Reason: Shortness Of Breath Or Wheezing Rosuvastatin Calcium [Crestor] 20 mg PO DAILY Alogliptin Benzoate [Alogliptin] 25 mg PO DAILY Acetaminophen Tab [Tylenol] 650 mg PO Q6HR PRN tab PRN Reason: Mild Pain Or Fever > 100.5 Ascorbic Acid [Vitamin C] 1,000 mg PO DAILY #60 tab Cholecalciferol [Vitamin D3 (25 Mcg = 1000 Iu)] 50 mcg PO DAILY #60 tablet Discontinued Omeprazole 20 mg PO DAILY Discharge Medication List Alogliptin Benzoate [Alogliptin] 25 mg PO DAILY 08/09/21 [History] Rosuvastatin Calcium [Crestor] 20 mg PO DAILY 08/09/21 [History] Acetaminophen Tab [Tylenol] 650 mg PO Q6HR PRN tab 08/11/21 [Rx] Albuterol Inhaler [Ventolin Hfa Inhaler] 2 puff INHALATION RT-QID PRN #8 gm 08/11/21 [Rx] Ascorbic Acid [Vitamin C] 1,000 mg PO DAILY #60 tab 08/11/21 [Rx] Cholecalciferol [Vitamin D3 (25 Mcg = 1000 Iu)] 50 mcg PO DAILY #60 tablet 08/11/21 [Rx] Zinc Sulfate [Orazinc] 220 mg PO DAILY #30 cap 08/11/21 [Rx] guaiFENesin-DM 100-10MG/5ML [Robitussin DM] 10 ml PO Q6HR PRN #60 ml 08/11/21 [Rx] Pantoprazole [Protonix] 40 mg PO DAILY #30 tab 08/19/21 [Rx] metFORMIN HCL 500 mg PO BID 30 Days #60 tablet 08/19/21 [Rx] Follow up Appointment(s)/Referral(s): [facility],Clinic [Primary Care Provider] - 1-2 days Ambulatory/Diagnostic Orders: Complete Blood Count w/diff [LAB.AMB] Time Frame: 3 Days, Location: None Selected Patient Instructions/Handouts: Coronavirus Disease 2019 (COVID-19) Activity/Diet/Wound Care/Special Instructions: Activity Limited until follow-up Follow-up with primary care provider on discharge Continue taking current medications Monitor blood sugars and keep a diary for primary care follow-up, hemoglobin A1c is 9.6 and to discuss with primary care provider about possible insulin Encourage fluids and rest Recommend repeat labs in 3 days to monitor CBC, CMP, liver function testing Discharge Disposition: HOME SELF-CARE
== END 2021-08-19 12:36 | disposition home or self-care (01) ==
LOC: EC 18:00 → 6NMEDSUR 22:43
PROVIDERS: ADMIT Hospitalist; ATTEND Hospitalist
DX: U07.1 COVID-19 (principal); E11.22 Type 2 diabetes mellitus with diabetic chronic kidney disease; N18.30 Chronic kidney disease, stage 3 unspecified; E87.1 Hypo-osmolality and hyponatremia; E87.70 Fluid overload, unspecified; E78.5 Hyperlipidemia, unspecified; I25.10 Atherosclerotic heart disease of native coronary artery without angina pectoris; K21.9 Gastro-esophageal reflux disease without esophagitis; N17.9 Acute kidney failure, unspecified; E11.65 Type 2 diabetes mellitus with hyperglycemia; E86.0 Dehydration; N39.0 Urinary tract infection, site not specified; R19.7 Diarrhea, unspecified; R63.0 Anorexia; Z68.22 Body mass index [BMI] 22.0-22.9, adult; R05.9 Cough, unspecified; R06.02 Shortness of breath; I25.2 Old myocardial infarction; R94.31 Abnormal electrocardiogram [ECG] [EKG]; R79.89 Other specified abnormal findings of blood chemistry; M19.90 Unspecified osteoarthritis, unspecified site; H40.9 Unspecified glaucoma; H93.13 Tinnitus, bilateral; J98.4 Other disorders of lung; H91.90 Unspecified hearing loss, unspecified ear; Z95.5 Presence of coronary angioplasty implant and graft; Z79.899 Other long term (current) drug therapy; Z90.49 Acquired absence of other specified parts of digestive tract; Z87.891 Personal history of nicotine dependence; Z87.01 Personal history of pneumonia (recurrent); Z86.16 Personal history of COVID-19; R29.6 Repeated falls; Z91.81 History of falling; Z79.84 Long term (current) use of oral hypoglycemic drugs; Z91.14 Patient's other noncompliance with medication regimen; Z71.9 Counseling, unspecified; Z82.3 Family history of stroke
CPT/HCPCS: 96376 ×3; 96365; 96372 ×2; 96375 ×2; 96361; 99285; 36415; 93005; 97165; 80053 ×2; 83605; 83735; 84484 ×2; 85025 ×2; 85610; 85730; 81001; 87086; 83036; 87635; 71046; G0378 ×3; J1100; J3250; J2405 ×2; J0696 ×2; J1650; C9113 ×2

== ENCOUNTER 2024-07-04 10:35 | Emergency (ER) | payer OTHER, MEDICARE ==
[2024-07-04 10:47] VITALS: RESP 18; TEMP 97.7
--- NOTE | 2024-07-04 11:01 | ED ---
Skin/Abscess/FB HPI - General Chief complaint: Skin/Abscess/Foreign Body Stated complaint: L foot index toe infection/diabetic Time Seen by Provider: 07/04/24 10:49 Source: patient, RN notes reviewed Mode of arrival: ambulatory Limitations: no limitations - History of Present Illness Initial comments: This is a 79 year old male who presents to the emergency department for a diabetic ulcer. States that he first noticed the ulceration between his first and second toe on the left foot about 3 weeks ago. States that it seems to be getting worse. He saw his primary care provider for a physical today and was advised to come here for evaluation since it has developed into an ulceration. He has been applying Neosporin to it but is not currently on any oral antibiotics. This is increasingly painful, especially with ambulation. Denies any fevers or chills. - Related Data Home Medications Medication Instructions Recorded Confirmed Alogliptin Benzoate [Alogliptin] 25 mg PO DAILY 08/09/21 08/17/21 Rosuvastatin Calcium [Crestor] 20 mg PO DAILY 08/09/21 08/17/21 Previous Rx's Medication Instructions Recorded Acetaminophen Tab [Tylenol] 650 mg PO Q6HR PRN tab 08/11/21 Albuterol Inhaler [Ventolin Hfa 2 puff INHALATION RT-QID PRN #8 gm 08/11/21 Inhaler] Ascorbic Acid [Vitamin C] 1,000 mg PO DAILY #60 tab 08/11/21 Cholecalciferol [Vitamin D3 (25 50 mcg PO DAILY #60 tablet 08/11/21 Mcg = 1000 Iu)] Zinc Sulfate [Orazinc] 220 mg PO DAILY #30 cap 08/11/21 guaiFENesin-DM 100-10MG/5ML 10 ml PO Q6HR PRN #60 ml 08/11/21 [Robitussin DM] Pantoprazole [Protonix] 40 mg PO DAILY #30 tab 08/19/21 metFORMIN HCL 500 mg PO BID 30 Days #60 tablet 08/19/21 Cephalexin [Keflex] 500 mg PO Q6HR 7 Days #28 cap 07/04/24 Sulfamethox-Tmp 800-160Mg [Bactrim 1 tab PO Q12HR 7 Days #14 tab 07/04/24 DS 800-160 mg] Allergies Allergy/AdvReac Type Severity Reaction Status Date / Time No Known Allergies Allergy Verified 07/04/24 10:44 Review of Systems ROS Statement: Those systems with pertinent positive or pertinent negative responses have been documented in the HPI. ROS Other: All systems not noted in ROS Statement are negative. Past Medical History Past Medical History: Coronary Artery Disease (CAD), Diabetes Mellitus, Eye Disorder, GERD/Reflux, Hearing Disorder / Deafness, Hyperlipidemia, Myocardial Infarction (IA), Osteoarthritis (OA), Prostate Disorder, Renal Disease Additional Past Medical History / Comment(s): Pt recently hospitalized at [facility] on 08/09/21 with covid pneumonia R upper lobe, FALLS, NIDDM type II, CKD stage III, bronchitis, bilateral tinnitis, bilateral glaucoma. Last Myocardial Infarction Date:: 2007 History of Any Multi-Drug Resistant Organisms: None Reported Past Surgical History: Cholecystectomy, Heart Catheterization With Stent, Hernia Repair Additional Past Surgical History / Comment(s): Bilateral inguinal hernia repairs. Past Anesthesia/Blood Transfusion Reactions: No Reported Reaction Date of Last Stent Placement:: 2007 Past Psychological History: No Psychological Hx Reported Smoking Status: Former smoker Past Alcohol Use History: Occasional Past Drug Use History: None Reported - Past Family History Mother Family Medical History: No Reported History Additional Family Medical History / Comment(s): " from old age" Father Family Medical History: CVA/TIA Additional Family Medical History / Comment(s): father from stroke when pt was 7 years old General Exam Limitations: no limitations General appearance: alert, in no apparent distress Head exam: Present: atraumatic, normocephalic, normal inspection Respiratory exam: Present: normal lung sounds bilaterally. Absent: respiratory distress, wheezes, rales, rhonchi, stridor Cardiovascular Exam: Present: regular rate, normal rhythm, normal heart sounds. Absent: systolic murmur, diastolic murmur, rubs, gallop, clicks Extremities exam: Present: other (Ulceration between the first and second toe on the left foot) Neurological exam: Present: alert, oriented X3, CN II-XII intact Psychiatric exam: Present: normal affect, normal mood Course Vital Signs 07/04/24 07/04/24 10:45 13:05 Temperature 97.7 F Pulse Rate 84 64 Respiratory 18 18 Rate Blood Pressure 149/92 193/84 O2 Sat by Pulse 99 98 Oximetry Medical Decision Making - Medical Decision Making This is a 79-year-old male who presents to the emergency department for a diabetic ulcer. Was pt. sent in by a medical professional or institution? @ -No Did you speak to anyone other than the patient for history? @ -No Did you review nursing and triage notes? @ -Yes, and I agree, it is accurate with regards to the patient's symptoms. Were old charts reviewed? @ -No Differential Diagnosis? @ -Skin ulcer, cellulitis, abscess, osteomyelitis, this is not meant to be an all-inclusive list. EKG interpreted by me (3pts min.)? @ -Not obtained X-rays interpreted by me (1pt min.)? @ -X-ray of the left foot obtained. My interpretation identifies no evidence of osseous erosion. CT interpreted by me (1pt min.)? @ -Not obtained U/S interpreted by me (1pt. min.)? @ -Not obtained What testing was considered but not performed? (CT, X-rays, U/S, labs)? Why? @ -None What meds were considered but not given? Why? @ -None Did you discuss the management of the patient with other professionals? @ -No Did you reconcile home meds? @ -No Was smoking cessation discussed for >3mins.? @ -No Was critical care preformed (if so, how long)? @ -No Were there social determinants of health that impacted care today? How? (Homelessness, low income, unemployed, alcoholism, drug addiction, transportation, low edu. Level, literacy, decrease access to med. care, [place] [facility], rehab)? @ -No Was there de-escalation of care discussed even if they declined? (Discuss DNR or withdrawal of care, Hospice)? @ -No What co-morbidities impacted this encounter? (DM, HTN, Smoking, COPD, CAD, Cancer, CVA, Hep., AIDS, mental health diagnosis, sleep apnea, morbid obesity)? @ -DM Was patient admitted / discharged? @ -Discharged. Lab work demonstrates hyperkalemia, however this is hemolyzed. Lab work otherwise unremarkable. There is no leukocytosis and inflammatory markers are negative. X-ray of the left foot obtained revealing no evidence of osteomyelitis or other acute process. Advised that at this point we can start him on oral antibiotics on an outpatient basis. Bactrim and Keflex prescribed. He was given strict return parameters and advised to have close follow-up with his PCP regarding the wound and to have his potassium rechecked. Patient discharged home in stable condition. Case discussed with ED attending Dr. Quan. Return precautions reviewed in depth, the patient is instructed to return to the emergency department with any new, worsening, or concerning symptoms. Patient verbalized understanding. Undiagnosed new problem with uncertain prognosis? @ -None Drug Therapy requiring intensive monitoring for toxicity (Heparin, Nitro, Insulin, Cardizem)? @ -None Were any procedures done? @ -None Diagnosis/symptom? @ -Diabetic ulcer Acute, or Chronic, or Acute on Chronic? @ -Acute Uncomplicated (without systemic symptoms) or Complicated (systemic symptoms)? @ -Uncomplicated Side effects of treatment? @ -None Exacerbation, Progression, or Severe Exacerbation] @ -Not applicable Poses a threat to life or bodily function? @ -No - Lab Data Result diagrams: 07/04/24 11:18 07/04/24 11:18 Lab Results 07/04/24 07/04/24 07/04/24 Range/Units 11:18 11:18 11:18 WBC 9.9 (3.8-10.6) k/uL RBC 4.27 L (4.30-5.90) m/uL Hgb 13.0 (13.0-17.5) gm/dL Hct 38.5 L (39.0-53.0) % MCV 90.2 (80.0-100.0) fL MCH 30.4 (25.0-35.0) pg MCHC 33.7 (31.0-37.0) g/dL RDW 13.5 (11.5-15.5) % Plt Count 158 (150-450) k/uL MPV 7.9 Neutrophils % 77 % Lymphocytes % 12 % Monocytes % 5 % Eosinophils % 4 % Basophils % 0 % Neutrophils # 7.7 (1.3-7.7) k/uL Lymphocytes # 1.2 (1.0-4.8) k/uL Monocytes # 0.5 (0-1.0) k/uL Eosinophils # 0.4 (0-0.7) k/uL Basophils # 0.0 (0-0.2) k/uL ESR 20 (0-20) mm/Hr Sodium 136 L (137-145) mmol/L Potassium 6.0 H (3.5-5.1) mmol/L Chloride 103 (98-107) mmol/L Carbon Dioxide 24 (22-30) mmol/L Anion Gap 9 mmol/L BUN 27 H (9-20) mg/dL Creatinine 1.35 H (0.66-1.25) mg/dL Est GFR (CKD-EPI)AfAm 58 (>60 ml/min/1.73 sqM) Est GFR (CKD-EPI)NonAf 50 (>60 ml/min/1.73 sqM) Glucose 351 H (74-99) mg/dL Plasma Lactic Acid Mason 1.7 (0.7-2.0) mmol/L Calcium 10.1 (8.4-10.2) mg/dL Total Bilirubin 1.1 (0.2-1.3) mg/dL AST 30 (17-59) U/L ALT 22 (4-49) U/L Alkaline Phosphatase 81 (38-126) U/L C-Reactive Protein 0.6 (<1.0) mg/dL Total Protein 7.0 (6.3-8.2) g/dL Albumin 4.7 (3.5-5.0) g/dL - Radiology Data Radiology results: report reviewed, image reviewed Disposition Clinical Impression: Diabetic ulcer of left foot Disposition: HOME SELF-CARE Instructions (If sedation given, give patient instructions): Diabetic Foot Ulcers (ED) Additional Instructions: Return to the emergency department with any new, worsening, or concerning symptoms. Take both antibiotics as prescribed for 7 days. Follow up with your primary care provider in 1-2 days. Prescriptions: Sulfamethox-Tmp 800-160Mg [Bactrim DS 800-160 mg] 1 tab PO Q12HR 7 Days #14 tab Cephalexin [Keflex] 500 mg PO Q6HR 7 Days #28 cap Is patient prescribed a controlled substance at d/c from ED?: No Referrals: [facility],Clinic [Primary Care Provider] - 1-2 days Time of Disposition: 12:49
[2024-07-04 11:25] LABS: Basophils % (A) 0 %; Eosinophils # (A) 0.4 k/uL (0-0.7); Eosinophils % (A) 4 %; HCT 38.5 % (39.0-53.0); Lymphocytes # (A) 1.2 k/uL (1.0-4.8); Lymphocytes % (A) 12 %; MCH 30.4 pg (25.0-35.0); MCHC 33.7 g/dL (31.0-37.0); MCV 90.2 fL (80.0-100.0); Mean Platelet Volume 7.9; Monocytes # (A) 0.5 k/uL (0-1.0); Monocytes % (A) 5 %; Neutrophils # (A) 7.7 k/uL (1.3-7.7); Neutrophils % (A) 77 %; Platelet Count 158 k/uL (150-450); RBC 4.27 m/uL (4.30-5.90); RDW 13.5 % (11.5-15.5); WBC 9.9 k/uL (3.8-10.6)
--- NOTE | 2024-07-04 11:34 | XR ---
EXAMINATION TYPE: XR foot complete LT DATE OF EXAM: 07/04/2024 11:30 AM INDICATION: Patient age:Male; 79 years old; Reason for study: Left first and second toe infection; PHH. COMPARISON: None TECHNIQUE: The left foot was examined in the AP, oblique, and lateral projections. FINDINGS: No evidence of any acute osseous pathology. No osseous erosions. Bunion deformity first digit. No fabian dence of soft tissue swelling. No definitive soft tissue gas. Joints are preserved. Small posterior a nd plantar calcaneal enthesophytes. IMPRESSION: 1. No evidence of acute fracture or osseous erosions. 2. Bunion deformity of the first digit. [facility], , 07/04/2024 11:32 AM
[2024-07-04 11:41] LABS: ALT 22 U/L (4-49); African American GFR (CKD) 58 (>60 ml/min/1.73 sqM); Anion Gap 9 mmol/L; Blood Urea Nitrogen 27 mg/dL (9-20); Calcium 10.1 mg/dL (8.4-10.2); Carbon Dioxide 24 mmol/L (22-30); Chloride 103 mmol/L (98-107); Glucose 351 mg/dL (74-99); Non-African American GFR(CKD) 50 (>60 ml/min/1.73 sqM); Sodium 136 mmol/L (137-145); Total Bilirubin 1.1 mg/dL (0.2-1.3)
[2024-07-04] MEDS: SULFAMETHOX-TMP 800-160MG 1 EACH TAB PO STA (11:43)
[2024-07-04] MEDS: CEPHALEXIN 500 MG CAP PO STA (11:43)
[2024-07-04 11:46] LABS: AST 30 U/L (17-59); Albumin 4.7 g/dL (3.5-5.0); Alkaline Phosphatase 81 U/L (38-126)
[2024-07-04] MEDS: traMADol 50 MG STARTER PACK 3 TAB BTL PO STA (13:02)
[2024-07-04 13:07] VITALS: BP 193/84; PULSE 64
[2024-07-04 13:49] LABS: C Reactive Protein 0.6 mg/dL (<1.0)
[2024-07-04 16:07] LABS: Erythrocyte Sedimentation Rate 20 mm/Hr (0-20)
== END 2024-07-04 13:06 | disposition home or self-care (01) ==
LOC: EC 10:35
DX: E11.621 Type 2 diabetes mellitus with foot ulcer (principal); Z87.891 Personal history of nicotine dependence
CPT/HCPCS: 36415; 80053; 83605; 85025; 85652; 86140; 99283

== ENCOUNTER 2024-12-31 05:57 | Day surgery (SDC) | payer MEDICARE, OTHER ==
[2024-12-27 12:37] VITALS: BMI 24.3
[2024-12-31] MEDS ORDERED: LIDOCAINE 1% (10MG/ML) FOR IV START INTRADERMA PRN (06:42)
[2024-12-31] MEDS: IV FLUID CONTINUATION 1,000 ML IV ONE (06:56)
[2024-12-31 07:07] LABS: Glucose,Whole Blood 177 mg/dL (70-110)
[2024-12-31] MEDS: LACTATED RINGERS 1,000 ML IV SCH (07:14)
[2024-12-31] MEDS: ACETAMINOPHEN TAB 500 MG TAB PO PRN (07:14)
[2024-12-31] MEDS: DEXAMETHASONE SOD PHOSPHATE 4 MG/ML 1 ML VIAL IV ONE (07:14)
[2024-12-31] MEDS: ONDANSETRON 4 MG/2 ML VIAL IVP ONE (07:14)
[2024-12-31] MEDS: HEPARIN SODIUM,PORCINE 5,000 UNIT/ML 1 ML VIAL SQ PRN (07:15)
[2024-12-31] MEDS: ceFAZolin 2 GM in DEXTROSE 5% IN WATER 50 ML IVPB PRN (07:36)
[2024-12-31] MEDS ORDERED: NEOSTIGMINE 1 MG/ML 10 ML VIAL ONE (07:38)
[2024-12-31] MEDS ORDERED: PHENYLEPHRINE-0.9% NACL SYG 1,000 MCG/10 ML SYRINGE ONE (07:38)
[2024-12-31] MEDS ORDERED: SUCCINYLCHOLINE CHLORIDE 200 MG/10 ML VIAL IV ONE (07:38)
[2024-12-31] MEDS ORDERED: PROPOFOL 10 MG/ML 20 ML VIAL IV ONE (07:38)
[2024-12-31] MEDS ORDERED: MIDAZOLAM 2 MG/2 ML VIAL ONE (07:38)
[2024-12-31] MEDS ORDERED: GLYCOPYRROLATE 0.2 MG/ML 2 ML VIAL ONE (07:38)
[2024-12-31] MEDS ORDERED: fentaNYL (PF) 50 MCG/ML 2 ML AMP ONE (07:38)
[2024-12-31] MEDS ORDERED: ROCURONIUM 10 MG/ML (5 ML VIAL) IV ONE (07:38)
[2024-12-31] MEDS ORDERED: LIDOCAINE 1% INJ 10MG/ML (20 ML MDV) ONE (07:38)
[2024-12-31] MEDS ORDERED: KETOROLAC 15 MG/ML 1 ML VIAL ONE (07:38)
[2024-12-31] MEDS ORDERED: ePHEDrine 50 MG/ML 1 ML VIAL ONE (07:38)
[2024-12-31] MEDS: LIDOCAINE 1%-EPI 1:100,000 20 ML VIAL SQ ONE (08:04)
[2024-12-31] MEDS ORDERED: ONDANSETRON 4 MG/2 ML VIAL IVP PRN (09:04)
[2024-12-31] MEDS ORDERED: HYDROcodone/APAP 5-325MG 1 EACH TAB PO PRN (09:04)
[2024-12-31] MEDS ORDERED: HYDROmorphone 1 MG/ML 1 ML SYRINGE IVP PRN (09:04)
[2024-12-31] MEDS ORDERED: NALOXONE 0.4 MG/ML 1 ML VIAL IV PRN (09:04)
[2024-12-31] MEDS ORDERED: HYDROmorphone 0.5 MG/0.5 ML SYRINGE IVP PRN (09:04)
--- NOTE | 2024-12-31 09:04 | P.OP ---
Date of Procedure: 12/31/24 Preoperative Diagnosis: Hiatal hernia Postoperative Diagnosis: Hiatal hernia Procedure(s) Performed: Laparoscopic repair of hiatal hernia Anesthesia: DIOGENES Surgeon: Nura Lopez Estimated Blood Loss (ml): 5 Pathology: none sent Condition: stable Disposition: PACU Description of Procedure: T the patient was placed on the operating table in the supine position. The patient received general anesthesia. And was placed in dorsal lithotomy position. The patient was prepped and draped in the usual sterile fashion. The skin incision sites were anesthetized with 1% local Xylocaine. The skin was incised in the left periumbilical area and then using a blade less 5 mm trocar under direct visualization panel cavity was entered. After adequate insufflation the laparoscope was then placed into the peritoneal cavity. Next a 5 mm trochars placed in the right epigastric position. Another 5 millimeter trocar the right lateral position. Another 5 millimeter trocar in the left lateral position a 5 mm trocar is placed in the left epigastric position. And then the initial 5 mm trocar was exchanged for a 10 mm trocar. The left lateral lobe liver was retracted. The hernia was seen. The crural defect was then dissected using the Harmonic scissors device. A 360 crural dissection was performed the esophagus stomach was reduced back into the peritoneal Cavity. The crural defect was then closed using 2-0 Ethibond suture. There was no injury seen to the stomach or esophagus. The dilator was then withdrawn. The abdomen was irrigated there is no bleeding seen. The trochars were then withdrawn and then skin incision sites were closed using 3-0 Monocryl suture Steri-Strips are applied. Patient thought procedure well and sent to recovery room in stable condition.
[2024-12-31] MEDS: HYDROmorphone 0.5 MG/0.5 ML SYRINGE IVP PRN (09:14)
[2024-12-31 09:19] LABS: Glucose,Whole Blood 241 mg/dL (70-110)
[2024-12-31] MEDS: INSULIN LISPRO (HumaLOG) 100 UNIT/ML 10 mL VL SQ ONE (09:36)
[2024-12-31] MEDS ORDERED: DEXTROSE 50% SYRINGE 50 ML IVP PRN ×2 (12:40)
--- NOTE | 2024-12-31 12:40 | P.CONS ---
History of Present Illness - Reason for Consult Consult date: 12/31/24 Medical Management Requesting physician: Nura Lopez - History of Present Illness History of Presenting Illness: Patient is a very pleasant 79-year-old male with a past medical history of CAD status post stenting, hypertension, hyperlipidemia, insulin-dependent diabetes mellitus, chronic neck and back pain, and stage IIIa chronic kidney disease. Patient is currently admitted under general surgery team and is status post laparoscopic repair of hiatal hernia. Surgical procedure was completed by Dr. Lopez. We were consulted for medical management throughout hospitalization. Patient was seen and fully evaluated in room 476. He is currently resting in bed and appeared comfortable. He reports chronic pain in his upper back/shoulders and neck unchanged from baseline. He denies have any postoperative pain states feeling bloated and may be a little discomfort rated 2-3 out of 10 at this time. He reports tolerating clear liquid diet and denies any postoperative nausea or vomiting. Patient just returned from completion of surgical procedure and states has not yet urinated or had a bowel movement. Patient denies having any headache, lightheadedness, dizziness, chest pain, palpitations, shortness of breath, or experiencing any numbness/tingling/weakness/swelling in his extremities. Review of systems: Pertinent positives and negatives as discussed in HPI, a complete review of systems was performed and all other systems are negative. Physical exam: Vital signs reviewed and stable. General: Nontoxic, no distress and appears stated age. Derm: Skin warm and dry, normal coloration for ethnicity. Head: Atraumatic, normocephalic and symmetric. Eyes: EOM's intact, no lid lag, and anicteric sclera Mouth: no lip lesions, mucus membranes moist Cardiovascular: regular rate and rhythm with normal S1S2, soft systolic murmur, positive posterior tibial pulses bilaterally, and cap refill < 2 seconds. Lungs: Respirations even, regular, and unlabored on room air. Lungs CTA bilaterally, no rhonchi, no rales, no wheezing, and no accessory muscle usage. Abdominal: soft, mild tenderness surrounding laparoscopic incision sites, no guarding, no appreciable organomegaly Ext: ROM intact. No gross muscle atrophy, no edema, no contractures Neuro: Speech clear, face symmetrical and CN II-XII grossly intact with no noted focal neuro deficits Psych: Alert and oriented to person, place, time, and situation. Appropriate and pleasant affect. Assessment and Plan of Care: Status post laparoscopic repair of hiatal hernia -Management per primary admitting general surgery team including DVT prophylaxis, pain management, wound/dressing management, and advancement of diet. Currently DVT prophylaxis with Lovenox-. -Continue symptomatic care and pain management with Tylenol 650 mg every 6 hours as needed for mild pain, Mobile 5/325 mg tablets every 4 hours as needed for moderate pain, and Dilaudid 1 mg IVP every 4 hours as needed for severe breakthrough pain. -Zofran 4 mg IVP every 6 hours as needed for nausea or vomiting. -GI prophylaxis with Protonix 40 mg daily. - Postoperative labs ordered including CBC, CMP, and magnesium. Will follow-up on these results and place additional orders if indicated based upon these findings. Insulin-dependent diabetes mellitus with hyperglycemia -Hemoglobin A1c drawn 12/13/2024 resulting at 11.4%. Patient to continue Lantus 10 units daily along with glycemic protocol and Humalog sliding scale. CAD status post stenting Hypertension Hyperlipidemia -Continue daily medication regimen with amlodipine 10 mg daily, atorvastatin 40 mg daily, and lisinopril 20 mg daily. CKD stage III -Preoperative labs drawn on 12/13/2024 show renal function within Data and imaging reviewed: -Reviewed preoperative labs completed 12/13/2024 CBC showing hemoglobin 10.8 and platelet count of 177,000 with normal WBC count of 7.10. BMP showing sodium 142, potassium 3.7, chloride 106, bicarb 24.6, anion gap of 11.40, BUN of 12.1, creatinine 1.3, GFR greater than 60. Hemoglobin A1c is elevated at 11.4%. -Vital signs reviewed. Blood pressure 101/56, heart rate 75,, respiratory rate 18, temp 96.8 F, SpO2 90% on 2L. Thank you for allowing us to participate in the care of this pleasant patient. Do not hesitate to contact us with questions. Someone can be reached from the [facility] hospitalist group all hours of the day at [phone] or via [employer]. Patient was seen independently by Nurse Practitioner. This document was prepared using [employer] dictation software. Please allow for errors in red cross executive director while rare they do occur. Robert Murry NP rendered care for this patient independently, reviewed the findings and plan as documented in the note above and agree with plan. I did not physically speak with or examine the patient on this date. Past Medical History Past Medical History: Coronary Artery Disease (CAD), Diabetes Mellitus, Eye Disorder, GERD/Reflux, Hearing Disorder / Deafness, Hyperlipidemia, Hypertension, Myocardial Infarction (MT), Pneumonia, Renal Disease Additional Past Medical History / Comment(s): hiatal hernia, Pt recently hospitalized at [facility] 12-09-24 thru 12-14-24, 08/09/21 with covid pneumonia R upper lobe, freq FALLS-no devices, , CKD stage III, bronchitis, bilateral tinnitis, bilateral glaucoma Last Myocardial Infarction Date:: 2007 History of Any Multi-Drug Resistant Organisms: None Reported Past Surgical History: Cholecystectomy, Heart Catheterization With Stent, Hernia Repair Additional Past Surgical History / Comment(s): Bilateral inguinal hernia repairs, cardiac stents x2 Past Anesthesia/Blood Transfusion Reactions: No Reported Reaction Additional Past Anesthesia/Blood Transfusion Reaction / Comm: no hx blood transfusion Date of Last Stent Placement:: 2007 Past Psychological History: No Psychological Hx Reported Additional Psychological History / Comment(s): Pt resides lives in a house with his girlfriend. Smoking Status: Former smoker Past Alcohol Use History: Occasional Additional Past Alcohol Use History / Comment(s): Pt started smoking in 1963 and quit in 1976 Past Drug Use History: None Reported - Past Family History Mother Family Medical History: No Reported History Additional Family Medical History / Comment(s): " from old age" Father Family Medical History: CVA/TIA Additional Family Medical History / Comment(s): father from stroke when pt was 7 years old Medications and Allergies Home Medications Medication Instructions Recorded Confirmed Type Insulin Glargine,Hum.rec.anlog 10 units SQ QAM 12/10/24 12/31/24 History [Lantus Solostar Pen] Lgyqzbeh-Vjdjctkky-Mkzajncd 1 applic BOTH EYES TID 12/10/24 12/31/24 History [Maxitrol Ophth Oint] Rosuvastatin [Crestor] 20 mg PO DAILY 12/10/24 12/31/24 History SITagliptin [Sitagliptin] 100 mg PO DAILY 12/10/24 12/31/24 History Acetaminophen [Tylenol] 325 - 650 mg PO Q4H PRN 12/27/24 12/31/24 History Pantoprazole [Protonix] 40 mg PO QAM 12/27/24 12/31/24 History amLODIPine [Norvasc] 10 mg PO QAM 12/27/24 12/31/24 History lisinopriL [Zestril] 20 mg PO QAM 12/27/24 12/31/24 History metFORMIN HCL [Glucophage] 500 mg PO BID 12/27/24 12/31/24 History Allergies Allergy/AdvReac Type Severity Reaction Status Date / Time No Known Allergies Allergy Verified 12/31/24 06:50 Physical Exam Vitals: Vital Signs Temp Pulse Resp BP Pulse Ox 12/31/24 10:29 75 18 101/56 90 L 12/31/24 09:45 67 14 114/60 100 12/31/24 09:30 77 14 121/64 100 12/31/24 09:15 73 14 122/67 100 12/31/24 09:00 80 14 120/65 100 12/31/24 08:46 96.8 F L 96 12 124/68 100 12/31/24 06:40 97.0 F L 66 18 125/79 96 Intake and Output 12/30/24 12/31/24 12/31/24 22:59 06:59 14:59 Intake Total 100 850 Output Total 5 Balance 100 845 Intake: IV 100 850 Output: Estimated Blood Loss 5 Other: Weight 68 kg 68 kg Results Labs: Abnormal Lab Results - Last 24 Hours (Table) 12/31/24 12/31/24 Range/Units 07:06 09:18 POC Glucose (mg/dL) 177 H 241 H (70-110) mg/dL
[2024-12-31] MEDS: D5-0.45% NACL WITH KCL 20MEQ/L 1,000 ML IV SCH (12:54)
[2024-12-31] MEDS: LIDOCAINE 4% PATCH TOPICAL SCH (15:02)
[2024-12-31] MEDS: ACETAMINOPHEN TAB 325 MG TAB PO PRN (16:04)
[2024-12-31 17:36] LABS: Glucose,Whole Blood 313 mg/dL (70-110)
[2024-12-31] MEDS: INSULIN LISPRO (HumaLOG) 100 UNIT/ML 10 mL VL SQ SCH (17:43)
[2024-12-31 20:57] LABS: Glucose,Whole Blood 296 mg/dL (70-110)
[2025-01-01 06:23] LABS: Glucose,Whole Blood 261 mg/dL (70-110)
[2025-01-01 08:09] LABS: HCT 34.3 % (39.6-50.0); HGB 11.3 g/dL (13.0-17.0); MCH 28.4 pg (27.0-32.0); MCHC 32.9 g/dL (32.0-37.0); MCV 86.2 FL (80.0-97.0); Mean Platelet Volume 10.6 FL (9.5-12.2); NRBC Per 100 WBC 0 X 10*3/uL (0.00-0.01); Platelet Count 210 X 10*3/uL (140-440); RBC 3.98 X 10*6/uL (4.40-5.60); RDW 13.1 % (11.5-14.5); WBC 8.58 X 10*3/uL (4.50-10.00)
[2025-01-01 08:45] LABS: ALT 74 U/L (10-49); AST 79 U/L (14-35); Albumin 4.3 g/dL (3.8-4.9); Albumin/Globulin Ratio 2.05 Ratio (1.60-3.17); Alkaline Phosphatase 49 U/L (41-126); BUN/Creat Ratio 13.19 Ratio (12.00-20.00); Blood Urea Nitrogen 21.1 mg/dL (9.0-27.0); Calcium 9.4 mg/dL (8.7-10.3); Carbon Dioxide 20.8 mmol/L (21.6-31.8); Chloride 102 mmol/L (96-109); Globulin 2.1 g/dL (1.6-3.3); Glucose 310 mg/dL (70-110); Magnesium 1.2 mg/dL (1.5-2.4); Potassium 4.8 mmol/L (3.5-5.5); Sodium 135 mmol/L (135-145); Total Bilirubin 0.5 mg/dL (0.3-1.2); Total Protein 6.4 g/dL (6.2-8.2)
[2025-01-01 09:07] VITALS: BP 136/82; PULSE 72; RESP 18; TEMP 99.2
[2025-01-01] MEDS: ENOXAPARIN 40 MG/0.4 ML SYRINGE SQ SCH (09:20)
--- NOTE | 2025-01-01 11:23 | P.PN ---
Subjective Progress Note Date: 01/01/25 Hospital Course:: Patient is a very pleasant 79-year-old male with a past medical history of CAD status post stenting, hypertension, hyperlipidemia, insulin-dependent diabetes mellitus, chronic neck and back pain, and stage IIIa chronic kidney disease. Patient is currently admitted under general surgery team and is status post laparoscopic repair of hiatal hernia. Surgical procedure was completed by Dr. Lopez. We were consulted for medical management throughout hospitalization. Physical exam Patient was seen and fully evaluated at bedside this morning. He reports that he had a bowel movement yesterday and denies having any nausea or vomiting. Patient states he is ready to go home. Patient was actually putting his shoes on and getting ready.: Patient was educated that his magnesium was very low at 1.2 and recommended for him to stay for IV magnesium replacement. Patient remains very adamant on discharge. Vital signs reviewed and stable. General: Nontoxic, no distress and appears stated age. Derm: Skin warm and dry, normal coloration for ethnicity. Head: Atraumatic, normocephalic and symmetric. Eyes: EOM's intact, no lid lag, and anicteric sclera Mouth: no lip lesions, mucus membranes moist Cardiovascular: regular rate and rhythm with normal S1S2, soft systolic murmur, positive posterior tibial pulses bilaterally, and cap refill < 2 seconds. Lungs: Respirations even, regular, and unlabored on room air. Lungs CTA bilaterally, no rhonchi, no rales, no wheezing, and no accessory muscle usage. Abdominal: soft, mild tenderness surrounding laparoscopic incision sites, no guarding, no appreciable organomegaly Ext: ROM intact. No gross muscle atrophy, no edema, no contractures Neuro: Speech clear, face symmetrical and CN II-XII grossly intact with no noted focal neuro deficits Psych: Alert and oriented to person, place, time, and situation. Appropriate and pleasant affect. Assessment and Plan of Care: Status post laparoscopic repair of hiatal hernia -Management per primary admitting general surgery team including DVT prophylaxis, pain management, wound/dressing management, and advancement of diet. Currently DVT prophylaxis with Lovenox-. -Continue symptomatic care and pain management with Tylenol 650 mg every 6 hours as needed for mild pain, [place] 5/325 mg tablets every 4 hours as needed for moderate pain, and Dilaudid 1 mg IVP every 4 hours as needed for severe breakthrough pain. -Zofran 4 mg IVP every 6 hours as needed for nausea or vomiting. -GI prophylaxis with Protonix 40 mg daily. - Postoperative labs ordered including CBC, CMP, and magnesium. Will follow-up on these results and place additional orders if indicated based upon these findings. Hypomagnesemia Magnesium 1.2. Orders placed for magnesium sulfate 4 g IVPB. Acute kidney injury on CKD stage IIIa Renal function elevated this morning with BUN of 21.1, creatinine 1.6, GFR 44 with baseline creatinine around 1.3. Order placed for bladder scan to monitor for postvoid residual/retention. Patient started on 0.9% normal saline at 100 cc/h. Will continue to monitor renal function with repeat a.m. labs and place additional orders if indicated based upon these findings Insulin-dependent diabetes mellitus with hyperglycemia -Hemoglobin A1c drawn 12/13/2024 resulting at 11.4%. Patient to continue Lantus 10 units daily along with glycemic protocol and Humalog sliding scale. Blood glucose elevated however patient was on a D5 0.45 infusion overnight from [facility]. D5.45 discontinued and patient started on 0.9% normal saline at 100 cc/h. At this time we will continue with home dose Lantus and Humalog sliding scale and monitor blood glucose levels closely. CAD status post stenting Hypertension Hyperlipidemia -Continue daily medication regimen with amlodipine 10 mg daily, atorvastatin 40 mg daily, and lisinopril 20 mg daily. CKD stage III -Preoperative labs drawn on 12/13/2024 show renal function within Data and imaging reviewed: -Postoperative labs reviewed. CBC showing normocytic anemia with hemoglobin of 11.3. BMP showing high anion gap metabolic acidosis with chloride of 102, bicarb of 20.8, and anion gap slightly elevated at 12.20. Renal function also elevated with BUN of 21.1, creatinine 1.6, GFR 44 with baseline creatinine of 1.3. Blood glucose 310 this morning however patient was on a D5.45 drip overnight since surgery. This was discontinued at this time and patient transition to 0.9% normal saline. Calcium 9.4. Hemoglobin A1c elevated at 10.5%. Magnesium low at 1.2. Liver profile showing elevated AST of 79 and ALT of 74. -Vital signs reviewed. Blood pressure 136/82, heart rate 72, respiratory rate 18, temp 99.2 F, and SpO2 of 99% on room air Thank you for allowing us to participate in the care of this pleasant patient. Do not hesitate to contact us with questions. Someone can be reached from the [facility] hospitalist group all hours of the day at [phone] or via perfect serve. Patient was seen independently by Nurse Practitioner. This document was prepared using [employer] dictation software. Please allow for errors in magazine supervisor while rare they do occur. Robert Murry NP rendered care for this patient independently, reviewed the findings and plan as documented in the note above and agree with plan. I did not physically speak with or examine the patient on this date. Objective - Vital Signs Vital signs: Vital Signs Temp 99.2 F 01/01/25 07:35 Pulse 72 01/01/25 07:35 Resp 18 01/01/25 07:35 BP 136/82 01/01/25 07:35 Pulse Ox 99 01/01/25 07:35 FiO2 Intake & Output 12/31/24 01/01/25 01/01/25 18:59 06:59 18:59 Intake Total 850 620 Output Total 5 Balance 845 620 Weight 68 kg Intake: IV 850 Oral 620 Output: Estimated Blood Loss 5 Other: Voiding Method Toilet # Voids 2 3 - Labs CBC & Chem 7: 01/01/25 02:58 01/01/25 02:58 Labs: Abnormal Lab Results - Last 24 Hours (Table) 12/31/24 12/31/24 01/01/25 Range/Units 17:34 20:55 02:58 RBC (4.40-5.60) X 10*6/uL Hgb (13.0-17.0) g/dL Hct (39.6-50.0) % Carbon Dioxide (21.6-31.8) mmol/L Anion Gap (4.00-12.00) mmol/L Creatinine (0.6-1.5) mg/dL Est GFR (CKD-EPI) (>=60) Glucose (70-110) mg/dL POC Glucose (mg/dL) 313 H 296 H (70-110) mg/dL Hemoglobin A1c 10.5 H (<=6.0) % Magnesium (1.5-2.4) mg/dL AST (14-35) U/L ALT (10-49) U/L 01/01/25 01/01/25 01/01/25 Range/Units 02:58 02:58 06:22 RBC 3.98 L (4.40-5.60) X 10*6/uL Hgb 11.3 L (13.0-17.0) g/dL Hct 34.3 L (39.6-50.0) % Carbon Dioxide 20.8 L (21.6-31.8) mmol/L Anion Gap 12.20 H (4.00-12.00) mmol/L Creatinine 1.6 H (0.6-1.5) mg/dL Est GFR (CKD-EPI) 44 L (>=60) Glucose 310 H (70-110) mg/dL POC Glucose (mg/dL) 261 H (70-110) mg/dL Hemoglobin A1c (<=6.0) % Magnesium 1.2 L (1.5-2.4) mg/dL AST 79 H (14-35) U/L ALT 74 H (10-49) U/L
--- NOTE | 2025-01-01 11:33 | P.DS ---
Providers Expected date of discharge: 01/01/25 Attending physician: Nura Lopez Consults: 12/31/24 09:04 Consult Physician Routine Consulting Provider: Tim Quiroz Consult Reason/Comments: Medical management Do you want consulting provider notified?: Yes Primary care physician: Darren Abernathy Hospital Course: Discharge diagnosis 1. Hiatal hernia 2. Hypomagnesemia Hospital course This is a 79-year-old male with a known history of hiatal hernia. He is status post laparoscopic repair of hiatal hernia. Patient tolerated surgery well. Pain is controlled. He is tolerating liquid diet. He is afebrile. He has been up and ambulating. He is stable for discharge. Note that magnesium level was low at 1.2. Medicine service did recommend IV magnesium prior to discharge. Patient refused the IV magnesium. They have prescribed oral magnesium for discharge. Please refer to chart for further details. Physician Joinery Machinist note has been reviewed by physician. Signing provider agrees with the documented findings, assessment, and plan of care. Patient Condition at Discharge: Stable Plan - Discharge Summary Discharge Rx Participant: Yes New Discharge Prescriptions: New Magnesium Oxide [Mag-Ox] 400 mg PO DAILY 30 Days #30 tablet Acetaminophen Tab [Tylenol Tab] 650 mg PO Q4H PRN #30 tablet PRN Reason: Pain Continue Astllhua-Dkgcdsigq-Riqbosxe [Maxitrol Ophth Oint] 1 applic BOTH EYES TID metFORMIN HCL [Glucophage] 500 mg PO BID lisinopriL [Zestril] 20 mg PO QAM amLODIPine [Norvasc] 10 mg PO QAM Rosuvastatin [Crestor] 20 mg PO DAILY Insulin Glargine,Hum.rec.anlog [Lantus Solostar Pen] 10 units SQ QAM SITagliptin [Sitagliptin] 100 mg PO DAILY Pantoprazole [Protonix] 40 mg PO QAM Acetaminophen [Tylenol] 325 - 650 mg PO Q4H PRN PRN Reason: Pain Discharge Medication List Insulin Glargine,Hum.rec.anlog [Lantus Solostar Pen] 10 units SQ QAM 12/10/24 [History] Cfytdpeo-Iwhqhnuvt-Kaoqhvlm [Maxitrol Ophth Oint] 1 applic BOTH EYES TID 12/10/24 [History] Rosuvastatin [Crestor] 20 mg PO DAILY 12/10/24 [History] SITagliptin [Sitagliptin] 100 mg PO DAILY 12/10/24 [History] Acetaminophen [Tylenol] 325 - 650 mg PO Q4H PRN 12/27/24 [History] Pantoprazole [Protonix] 40 mg PO QAM 12/27/24 [History] amLODIPine [Norvasc] 10 mg PO QAM 12/27/24 [History] lisinopriL [Zestril] 20 mg PO QAM 12/27/24 [History] metFORMIN HCL [Glucophage] 500 mg PO BID 12/27/24 [History] Acetaminophen Tab [Tylenol Tab] 650 mg PO Q4H PRN #30 tablet 01/01/25 [Rx] Magnesium Oxide [Mag-Ox] 400 mg PO DAILY 30 Days #30 tablet 01/01/25 [Rx] Follow up Appointment(s)/Referral(s): Nura Lopez MD [STAFF PHYSICIAN] - 01/08/25 2:10 pm Activity/Diet/Wound Care/Special Instructions: No lifting over 10 pounds You may shower. No soaking or tub baths for 2 weeks Very light activity until you are reevaluated at your follow up appointment with your surgeon No straws or carbonated beverages Continue a full liquid diet for the next 2 weeks Discharge Disposition: HOME SELF-CARE
[2025-01-01 11:42] LABS: Glucose,Whole Blood 290 mg/dL (70-110)
[2025-01-01] MEDS: INSULIN GLARGINE (LANTUS) 100 UNIT/ML SYR SQ SCH (12:21)
[2025-01-01] MEDS: amLODIPine 10 MG TAB PO SCH (12:21)
[2025-01-01] MEDS: ATORVASTATIN 40 MG TAB PO SCH (12:21)
[2025-01-01] MEDS: SODIUM CHLORIDE 0.9% 1,000 ML IV SCH (12:22)
[2025-01-01] MEDS: MAGNESIUM SULFATE-D5W PMX 1 GM in DEXTROSE/WATER 1 100ML.BAG IVPB SCH (12:22)
[2025-01-01] MEDS: lisinopriL 20 MG TAB PO SCH (12:22)
[2025-01-01] MEDS: PANTOPRAZOLE 40 MG TABLET PO SCH (12:22)
[2025-01-01 14:42] LABS: % Iron Saturation 15.85 (15.00-50.00)
== END 2025-01-01 12:35 | disposition home or self-care (01) ==
LOC: OR 05:57 → 4SSUR 08:39 → OR 01-01 12:35
PROVIDERS: ATTEND Surgery
DX: K44.9 Diaphragmatic hernia without obstruction or gangrene (principal); I25.10 Atherosclerotic heart disease of native coronary artery without angina pectoris; I12.9 Hypertensive chronic kidney disease with stage 1 through stage 4 chronic kidney disease, or unspecified chronic kidney disease; E83.42 Hypomagnesemia; E11.22 Type 2 diabetes mellitus with diabetic chronic kidney disease; N18.31 Chronic kidney disease, stage 3a; E78.5 Hyperlipidemia, unspecified; E87.20 Acidosis, unspecified; M79.89 Other specified soft tissue disorders; I25.2 Old myocardial infarction; Z82.3 Family history of stroke; Z95.5 Presence of coronary angioplasty implant and graft; Z90.49 Acquired absence of other specified parts of digestive tract; Z86.16 Personal history of COVID-19; Z87.891 Personal history of nicotine dependence; Z79.84 Long term (current) use of oral hypoglycemic drugs; Z79.4 Long term (current) use of insulin; Z79.899 Other long term (current) drug therapy
CPT/HCPCS: 80053; 83540; 83550; 83735; 85027; 83036; 43281; J1644; J1100; J0690; J2405; J1650; J1171